=== PATIENT | female | born 1945 | race Caucasian/White ===

== ENCOUNTER 2021-07-07 20:23 | Inpatient (IN) ==
[2021-07-07 22:58] LABS: iSTAT Creatinine 6.3 mg/dl (0.6-1.3); iSTAT Hemoglobin 15.6 g/dl (12.0-16.0); iSTAT Ionized Calcium 1.03 mmol/l (1.12-1.32); iSTAT Potassium 4.3 mmol/L (3.3-5.0)
[2021-07-07 23:00] LABS: Base Excess VBG -3.4 mEq/L; Oxygen Saturation VBG 94.1 %; pH VBG 7.34 (7.36-7.41)
[2021-07-07 23:13] LABS: Partial Thromboplastin Ratio 1.1; Partial Thromboplastin Time 29.9 Seconds (21.0-31.0); Prothrombin Time 10.6 Seconds (9.0-12.0)
[2021-07-07 23:14] LABS: Appearance Urine Turbid (Clear); Bacteria Urine Automated 1+ (Negative); Bilirubin Urine Negative (Negative); Blood Urine 3+ (Negative); Cast Urine Automated 0 /lpf (0-5); Color Urine Dark Yellow; Epithelial Cell Urine Auto >30 /lpf (0-5); Glucose Urine UA Negative (Negative); Ketones Urine Negative (Negative); Leukocyte Esterase Urine 3+ (Negative); Nitrite Urine Negative (Negative); Protein Urine 1+ (Negative); Specific Gravity Urine 1.013 (1.000-1.030); Urobilinogen Urine Negative (Negative); WBC Urine Automated >30 /hpf (0-5)
[2021-07-07 23:35] LABS: Alanine Aminotransferase 33 U/L (12-78); Albumin Globulin Ratio 0.6 (0.9-2); Albumin Level 2.2 gm/dl (3.4-5.0); Alkaline Phosphatase 111 U/L (45-117); Aspartate Aminotransferase 37 U/L (15-37); BUN Creatinine Ratio 23.2 (10-20); Bilirubin,Total 0.9 mg/dl (0.2-1); Blood Urea Nitrogen 137 mg/dl (7-18); Calcium 7.9 mg/dl (8.5-10.1); Carbon Dioxide 23 mmol/L (21-32); Chloride 94 mmol/L (98-107); Est GFR (African American) 7.6 ml/min; Est GFR (Non-African American) 6.5 ml/min; Glucose 131 mg/dl (70-99); Magnesium 2.2 mg/dl (1.8-2.4); NT Pro B Type Natriuretic Pept 2887 pg/ml (0-900); Potassium 4.2 mmol/L (3.5-5.1); Sodium 130 mmol/L (136-145); Total Protein 6.2 gm/dl (6.4-8.2); Troponin I 0.159 ng/ml (0-0.045)
[2021-07-07 23:37] LABS: Hematocrit (blood only) 43.4 % (37-47); Hemoglobin 15.8 g/dL (12.0-16.0); Mean Corpuscular Hemoglobin 29.3 pg (25-34); Mean Corpuscular Hgb Conc 36.4 g/dL (32-36); Mean Corpuscular Volume 80.4 fL (80-100); Mean Platelet Volume 11.1 fL (7.4-10.4); Platelet Count 42 K/uL (130-400); RDW Coefficient of Variation 15.6 % (11.5-14.5); RDW Standard Deviation 45.4 fL (36.4-46.3); White Blood Count 33.48 K/uL (4.8-10.8)
[2021-07-07 23:44] LABS: ALC (manual) 1.17 K/uL (1.2-3.4); ANC (manual) 31.44 K/uL (1.4-6.5); Lymphocytes # (manual) 1.17 K/uL (1.2-3.4); Lymphocytes % (manual) 3.5 %; Monocytes # (manual) 0.87 K/uL (0.11-0.59); Monocytes % (manual) 2.6 %; Neutrophils # (manual) 31.44 K/uL (1.4-6.5); Neutrophils % (manual) 93.9 %; RBC Morphology Unremarkable
[2021-07-07] MEDS ORDERED: CIPROFLOXACIN / D5W 400 MG/200 ML BAG IV STA (23:57)
--- NOTE | 2021-07-07 23:57 | Emergency Department Note ---
History of Present Illness General Chief complaint: Illness Stated complaint: weakness, low oxygen Time Seen by Provider: 07/07/21 22:01 History of Present Illness Provider complaint: Weakness low oxygen 75-year-old female presents emergency department for weakness. Patient states she is not sure when her symptoms began but states this began many weeks to months ago. She reports a mild difficulty breathing. She reports increased swelling in her lower extremities. Patient reports that she is so weak that she cannot get up to use the restroom. She denies any chest pain. She denies any headaches. She denies being vaccinated for COVID-19. She denies any cough or loss of taste or smell. Home Medications Medication Instructions Recorded Confirmed Type atorvastatin 20 mg tablet (Lipitor) 20 mg PO DAILY 07/07/21 07/07/21 History chlorpheniramine-acetaminophen 2 1 tab PO Q6H PRN 07/07/21 07/07/21 History mg-325 mg tablet lisinopril 10 mg tablet (Zestril) 10 mg PO DAILY 07/07/21 07/07/21 History oxybutynin chloride 5 mg 5 mg PO DAILY 07/07/21 07/07/21 History tablet,extended release 24 hr (Ditropan XL) Allergies Allergy/AdvReac Type Severity Reaction Status Date / Time ampicillin Allergy Unknown . Verified 07/07/21 21:43 erythromycin base Allergy Unknown . Verified 07/07/21 21:43 tetracycline Allergy Unknown . Verified 07/07/21 21:43 TERRAMYCIN Allergy Unknown . Uncoded 07/07/21 21:43 Past Med/Surg History Medical History (Updated 07/08/21 @ 00:55 by Braulio Arroyoha) Stress incontinence Surgical History (Updated 07/08/21 @ 00:02 by Braulio Loaiza) H/O hysterectomy with oophorectomy History of appendectomy Social History Smoking Status: Smoker, status unknown Feels Safe at Home: Yes Review of Systems A total of 10 systems reviewed and were otherwise negative Physical Exam Vital Signs Vital Signs - 24 hr 07/07/21 20:58 07/07/21 21:08 07/08/21 00:18 Temperature 36.7 C Temperature Source Oral Pulse Rate 91 H Pulse Rate [Apical] 90 91 H Respiratory Rate 16 19 20 Respiratory Effort / Characteristics Non-Labored Spontaneous Respiratory Depth Normal Respiratory Pattern Regular Blood Pressure 108/71 Blood Pressure [Left Arm] 108/71 98/62 L Blood Pressure Mean 83 Blood Pressure Mean [Left Arm] 83 74 Blood Pressure Position [Left Arm] Lying Pulse Oximetry 94 95 92 Oxygen Delivery Method Nasal Cannula Nasal Cannula Room Air Oxygen Flow Rate 2 2 Sepsis Recent Fever Within 48 Hours No Sepsis New/Unexplained Change in Mental Status No Sepsis Action Taken by Nursing No Action Required Physical Exam GENERAL: Disheveled chronically ill-appearing female. Patient is covered in her own feces and smells of urine HENT: Exam performed. -Head: Normocephalic and atraumatic. -Right Ear: External ear normal. No mastoid tenderness. -Left Ear: External ear normal. No mastoid tenderness. -Mouth/Throat: The oropharynx is clear and moist. No trismus in the jaw. No dental abscesses or uvula swelling. No oropharyngeal exudate or tonsillar abscesses. EYES: Conjunctivae and EOM are normal. Pupils are equal, round, and reactive to light. Right eye exhibits no discharge. Left eye exhibits no discharge. No scleral icterus. NECK: Normal range of motion. Neck supple. No JVD present. No spinous process tenderness present. No carotid bruit present. No rigidity. No tracheal deviation and normal range of motion present. No Brudzinski's sign and no Kernig's sign noted. CV: Normal rate, regular rhythm, normal heart sounds and intact distal pulses. Palpable radial pulses bue. PULM/CHEST: Rales at the bases bilaterally. ABD: The abdomen is soft and obese. Bowel sounds are normal. MUSC/SKEL: 4+ pitting edema of the bilateral lower extremities. LYMPH: No cervical adenopathy. NEURO: Motor and sensation grossly intact. PSYCH: She has a normal mood and affect. Behavior is normal. Judgment and thought content normal. Course Course 2200: The patient was evaluated in room C4. A complete history and physical exam was performed Cardiac monitoring: An order was placed for continuous cardiac monitoring. The monitor shows a rate of 90 with sinus rhythm Patient was hypoxic on arrival. Oxygen saturation is improved with supplemental oxygen via nasal cannula. 0034:Patient's creatinine 5.87. [id number]. Labs show leukocytosis of 33.48. proBNP elevated at 2887. Troponin elevated 0.159. Patient reports no chest pa in or difficulty breathing at this time. Procalcitonin greater than 200. Lactic acid within normal limits. Urinalysis appears to be infected. Patient treated with Cipro IV piggyback. 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 I did contact nephrology Dr. Alegria who agrees to be on consult and states there is no need for emergent dialysis at this time. She states she does not recommend any diuretics at this time either. 0040: Discussed with urology Dr. Ott who states no need for emergent intervention at this time. 0050: Patient in no acute distress. Patient asking for p.o. and watching TV in no acute distress. Discussed with Dr. Queen [facility] hospitalist team who agreed to admit the patient. Administered Medications Ciprofloxacin (Cipro / D5w) 400 mg in 200 mls @ 100 mls/hr IV NOW STA; Protocol Stop: 07/08/21 01:56 Last Admin: 07/08/21 00:18 Dose: 100 mls/hr Documented by: [id number] Critical Care Time Critical Care Time: Yes Total Critical Care Time: 76 I have personally spent greater than 76 minutes of critical care time in the direct management of this patient. This includes bedside care, interpretation of diagnostic studies, and testing, discussion with consultants, patient, and family members, and other required patient management activities. This 76 minutes is in excess of all separately billable procedures. Medical Decision Making Laboratory Data Result diagrams: 07/07/21 21:12 07/07/21 22:38 Lab Results 07/07/21 07/07/21 07/07/21 Range/Units 21:12 21:12 21:12 WBC 33.48 H* (4.8-10.8) K/uL RBC 5.40 (4.2-5.4) M/uL Hgb 15.8 (12.0-16.0) g/dL POC Hgb (12.0-16.0) g/dl Hct 43.4 (37-47) % POC Hct (37-47) % MCV 80.4 (80-100) fL MCH 29.3 (25-34) pg MCHC 36.4 H (32-36) g/dL RDW Std Deviation 45.4 (36.4-46.3) fL RDW Coeff of Mary Kay 15.6 H (11.5-14.5) % Plt Count 42 L (130-400) K/uL MPV 11.1 H (7.4-10.4) fL Neutrophils % (Manual) 93.9 % Lymphocytes % (Manual) 3.5 % Monocytes % (Manual) 2.6 % Neutrophils # (Manual) 31.44 H (1.4-6.5) K/uL Total Absolute Neuts 31.44 H (1.4-6.5) K/uL Lymphocytes # (Manual) 1.17 L (1.2-3.4) K/uL Total Abs Lymphocytes 1.17 L (1.2-3.4) K/uL Monocytes # (Manual) 0.87 H (0.11-0.59) K/uL RBC Morphology Unremarkable PT (9.0-12.0) Seconds INR (0.9-1.1) APTT (21.0-31.0) Seconds PTT Ratio VBG pH (7.36-7.41) VBG pCO2 (38-50) mmHg VBG pO2 mmHg VBG HCO3 mmol/L VBG O2 Saturation % VBG Base Excess mEq/L Barometric Pressure mm/Hg POC Sodium (135-144) mmol/L Sodium (136-145) mmol/L POC Potassium (3.3-5.0) mmol/L Potassium (3.5-5.1) mmol/L POC Chloride (101-112) mmol/L Chloride (98-107) mmol/L Carbon Dioxide (21-32) mmol/L POC Total CO2 (24-31) mmol/L Anion Gap (3-11) POC Anion Gap (16-25) mmol/L POC BUN (7-18) mg/dl BUN (7-18) mg/dl Creatinine (0.6-1.2) mg/dl POC Creatinine (0.6-1.3) mg/dl Est Cr Clr Drug Dosing Est GFR ( Amer) ml/min Est GFR (Non-Af Amer) ml/min BUN/Creatinine Ratio (10-20) Glucose (70-99) mg/dl POC Glucose (other) (70-99) mg/dl Lactate (0.4-2.0) mmol/L Calcium (8.5-10.1) mg/dl POC Ioniz Calcium Jenniffer (1.12-1.32) mmol/l Magnesium (1.8-2.4) mg/dl Total Bilirubin (0.2-1) mg/dl AST (15-37) U/L ALT (12-78) U/L Alkaline Phosphatase (45-117) U/L Lactate Dehydrogenase 265 H (84-246) U/L Troponin I (0-0.045) ng/ml NT-Pro-B Natriuret Pep (0-900) pg/ml Total Protein (6.4-8.2) gm/dl Albumin (3.4-5.0) gm/dl Globulin (2.5-4.0) gm/dl Albumin/Globulin Ratio (0.9-2) Procalcitonin > 200.00 H (0-0.5) ng/ml Urine Color Urine Appearance (Clear) Urine pH (4.5-7.5) Ur Specific Eagle (1.000-1.030) Urine Protein (Negative) Urine Glucose (UA) (Negative) Urine Ketones (Negative) Urine Blood (Negative) Urine Nitrite (Negative) Urine Bilirubin (Negative) Urine Urobilinogen (Negative) Ur Leukocyte Esterase (Negative) Urine WBC (Auto) (0-5) /hpf Urine RBC (Auto) (0-4) /hpf U Hyaline Cast (Auto) (0-5) /lpf U Epithel Cells (Auto) (0-5) /lpf Urine Bacteria (Auto) (Negative) Urine Yeast COVID-19 Eval Order 07/07/21 07/07/21 07/07/21 Range/Units 21:12 22:38 22:38 WBC (4.8-10.8) K/uL RBC (4.2-5.4) M/uL Hgb (12.0-16.0) g/dL POC Hgb (12.0-16.0) g/dl Hct (37-47) % POC Hct (37-47) % MCV (80-100) fL MCH (25-34) pg MCHC (32-36) g/dL RDW Std Deviation (36.4-46.3) fL RDW Coeff of Mary Kay (11.5-14.5) % Plt Count (130-400) K/uL MPV (7.4-10.4) fL Neutrophils % (Manual) % Lymphocytes % (Manual) % Monocytes % (Manual) % Neutrophils # (Manual) (1.4-6.5) K/uL Total Absolute Neuts (1.4-6.5) K/uL Lymphocytes # (Manual) (1.2-3.4) K/uL Total Abs Lymphocytes (1.2-3.4) K/uL Monocytes # (Manual) (0.11-0.59) K/uL RBC Morphology PT 10.6 (9.0-12.0) Seconds INR 1.0 (0.9-1.1) APTT 29.9 (21.0-31.0) Seconds PTT Ratio 1.1 VBG pH 7.34 L (7.36-7.41) VBG pCO2 42 (38-50) mmHg VBG pO2 68 mmHg VBG HCO3 22 mmol/L VBG O2 Saturation 94.1 % VBG Base Excess -3.4 mEq/L Barometric Pressure 734.0 mm/Hg POC Sodium (135-144) mmol/L Sodium 130 L (136-145) mmol/L POC Potassium (3.3-5.0) mmol/L Potassium 4.2 (3.5-5.1) mmol/L POC Chloride (101-112) mmol/L Chloride 94 L (98-107) mmol/L Carbon Dioxide 23 (21-32) mmol/L POC Total CO2 (24-31) mmol/L Anion Gap 13.0 H (3-11) POC Anion Gap (16-25) mmol/L POC BUN (7-18) mg/dl BUN 137 H (7-18) mg/dl Creatinine 5.87 H* (0.6-1.2) mg/dl POC Creatinine (0.6-1.3) mg/dl Est Cr Clr Drug Dosing Not Reportable Est GFR ( Amer) 7.6 ml/min Est GFR (Non-Af Amer) 6.5 ml/min BUN/Creatinine Ratio 23.2 H (10-20) Glucose 131 H (70-99) mg/dl POC Glucose (other) (70-99) mg/dl Lactate (0.4-2.0) mmol/L Calcium 7.9 L (8.5-10.1) mg/dl POC Ioniz Calcium Jenniffer (1.12-1.32) mmol/l Magnesium 2.2 (1.8-2.4) mg/dl Total Bilirubin 0.9 (0.2-1) mg/dl AST 37 (15-37) U/L ALT 33 (12-78) U/L Alkaline Phosphatase 111 (45-117) U/L Lactate Dehydrogenase (84-246) U/L Troponin I 0.159 H* (0-0.045) ng/ml NT-Pro-B Natriuret Pep 2887 H (0-900) pg/ml Total Protein 6.2 L (6.4-8.2) gm/dl Albumin 2.2 L (3.4-5.0) gm/dl Globulin 4.0 (2.5-4.0) gm/dl Albumin/Globulin Ratio 0.6 L (0.9-2) Procalcitonin (0-0.5) ng/ml Urine Color Urine Appearance (Clear) Urine pH (4.5-7.5) Ur Specific Eagle (1.000-1.030) Urine Protein (Negative) Urine Glucose (UA) (Negative) Urine Ketones (Negative) Urine Blood (Negative) Urine Nitrite (Negative) Urine Bilirubin (Negative) Urine Urobilinogen (Negative) Ur Leukocyte Esterase (Negative) Urine WBC (Auto) (0-5) /hpf Urine RBC (Auto) (0-4) /hpf U Hyaline Cast (Auto) (0-5) /lpf U Epithel Cells (Auto) (0-5) /lpf Urine Bacteria (Auto) (Negative) Urine Yeast COVID-19 Eval Order 07/07/21 07/07/21 07/07/21 Range/Units 22:38 22:44 Unknown WBC (4.8-10.8) K/uL RBC (4.2-5.4) M/uL Hgb (12.0-16.0) g/dL POC Hgb 15.6 (12.0-16.0) g/dl Hct (37-47) % POC Hct 46 (37-47) % MCV (80-100) fL MCH (25-34) pg MCHC (32-36) g/dL RDW Std Deviation (36.4-46.3) fL RDW Coeff of Mary Kay (11.5-14.5) % Plt Count (130-400) K/uL MPV (7.4-10.4) fL Neutrophils % (Manual) % Lymphocytes % (Manual) % Monocytes % (Manual) % Neutrophils # (Manual) (1.4-6.5) K/uL Total Absolute Neuts (1.4-6.5) K/uL Lymphocytes # (Manual) (1.2-3.4) K/uL Total Abs Lymphocytes (1.2-3.4) K/uL Monocytes # (Manual) (0.11-0.59) K/uL RBC Morphology PT (9.0-12.0) Seconds INR (0.9-1.1) APTT (21.0-31.0) Seconds PTT Ratio VBG pH (7.36-7.41) VBG pCO2 (38-50) mmHg VBG pO2 mmHg VBG HCO3 mmol/L VBG O2 Saturation % VBG Base Excess mEq/L Barometric Pressure mm/Hg POC Sodium 130 L (135-144) mmol/L Sodium (136-145) mmol/L POC Potassium 4.3 (3.3-5.0) mmol/L Potassium (3.5-5.1) mmol/L POC Chloride 95 L (101-112) mmol/L Chloride (98-107) mmol/L Carbon Dioxide (21-32) mmol/L POC Total CO2 23 L (24-31) mmol/L Anion Gap (3-11) POC Anion Gap 17.0 (16-25) mmol/L POC BUN 126 H* (7-18) mg/dl BUN (7-18) mg/dl Creatinine (0.6-1.2) mg/dl POC Creatinine 6.3 H* (0.6-1.3) mg/dl Est Cr Clr Drug Dosing Est GFR ( Amer) ml/min Est GFR (Non-Af Amer) ml/min BUN/Creatinine Ratio (10-20) Glucose (70-99) mg/dl POC Glucose (other) 130 H (70-99) mg/dl Lactate 0.6 (0.4-2.0) mmol/L Calcium (8.5-10.1) mg/dl POC Ioniz Calcium Jenniffer 1.03 L (1.12-1.32) mmol/l Magnesium (1.8-2.4) mg/dl Total Bilirubin (0.2-1) mg/dl AST (15-37) U/L ALT (12-78) U/L Alkaline Phosphatase (45-117) U/L Lactate Dehydrogenase (84-246) U/L Troponin I (0-0.045) ng/ml NT-Pro-B Natriuret Pep (0-900) pg/ml Total Protein (6.4-8.2) gm/dl Albumin (3.4-5.0) gm/dl Globulin (2.5-4.0) gm/dl Albumin/Globulin Ratio (0.9-2) Procalcitonin (0-0.5) ng/ml Urine Color Dark Yellow Urine Appearance Turbid A (Clear) Urine pH 5.0 (4.5-7.5) Ur Specific Eagle 1.013 (1.000-1.030) Urine Protein 1+ H (Negative) Urine Glucose (UA) Negative (Negative) Urine Ketones Negative (Negative) Urine Blood 3+ H (Negative) Urine Nitrite Negative (Negative) Urine Bilirubin Negative (Negative) Urine Urobilinogen Negative (Negative) Ur Leukocyte Esterase 3+ H (Negative) Urine WBC (Auto) >30 H (0-5) /hpf Urine RBC (Auto) 5-10 H (0-4) /hpf U Hyaline Cast (Auto) 0 (0-5) /lpf U Epithel Cells (Auto) >30 H (0-5) /lpf Urine Bacteria (Auto) 1+ H (Negative) Urine Yeast Not Reportable COVID-19 Eval Order 07/08/21 Range/Units 00:25 WBC (4.8-10.8) K/uL RBC (4.2-5.4) M/uL Hgb (12.0-16.0) g/dL POC Hgb (12.0-16.0) g/dl Hct (37-47) % POC Hct (37-47) % MCV (80-100) fL MCH (25-34) pg MCHC (32-36) g/dL RDW Std Deviation (36.4-46.3) fL RDW Coeff of Mary Kay (11.5-14.5) % Plt Count (130-400) K/uL MPV (7.4-10.4) fL Neutrophils % (Manual) % Lymphocytes % (Manual) % Monocytes % (Manual) % Neutrophils # (Manual) (1.4-6.5) K/uL Total Absolute Neuts (1.4-6.5) K/uL Lymphocytes # (Manual) (1.2-3.4) K/uL Total Abs Lymphocytes (1.2-3.4) K/uL Monocytes # (Manual) (0.11-0.59) K/uL RBC Morphology PT (9.0-12.0) Seconds INR (0.9-1.1) APTT (21.0-31.0) Seconds PTT Ratio VBG pH (7.36-7.41) VBG pCO2 (38-50) mmHg VBG pO2 mmHg VBG HCO3 mmol/L VBG O2 Saturation % VBG Base Excess mEq/L Barometric Pressure mm/Hg POC Sodium (135-144) mmol/L Sodium (136-145) mmol/L POC Potassium (3.3-5.0) mmol/L Potassium (3.5-5.1) mmol/L POC Chloride (101-112) mmol/L Chloride (98-107) mmol/L Carbon Dioxide (21-32) mmol/L POC Total CO2 (24-31) mmol/L Anion Gap (3-11) POC Anion Gap (16-25) mmol/L POC BUN (7-18) mg/dl BUN (7-18) mg/dl Creatinine (0.6-1.2) mg/dl POC Creatinine (0.6-1.3) mg/dl Est Cr Clr Drug Dosing Est GFR ( Amer) ml/min Est GFR (Non-Af Amer) ml/min BUN/Creatinine Ratio (10-20) Glucose (70-99) mg/dl POC Glucose (other) (70-99) mg/dl Lactate (0.4-2.0) mmol/L Calcium (8.5-10.1) mg/dl POC Ioniz Calcium Jenniffer (1.12-1.32) mmol/l Magnesium (1.8-2.4) mg/dl Total Bilirubin (0.2-1) mg/dl AST (15-37) U/L ALT (12-78) U/L Alkaline Phosphatase (45-117) U/L Lactate Dehydrogenase (84-246) U/L Troponin I (0-0.045) ng/ml NT-Pro-B Natriuret Pep (0-900) pg/ml Total Protein (6.4-8.2) gm/dl Albumin (3.4-5.0) gm/dl Globulin (2.5-4.0) gm/dl Albumin/Globulin Ratio (0.9-2) Procalcitonin (0-0.5) ng/ml Urine Color Urine Appearance (Clear) Urine pH (4.5-7.5) Ur Specific Eagle (1.000-1.030) Urine Protein (Negative) Urine Glucose (UA) (Negative) Urine Ketones (Negative) Urine Blood (Negative) Urine Nitrite (Negative) Urine Bilirubin (Negative) Urine Urobilinogen (Negative) Ur Leukocyte Esterase (Negative) Urine WBC (Auto) (0-5) /hpf Urine RBC (Auto) (0-4) /hpf U Hyaline Cast (Auto) (0-5) /lpf U Epithel Cells (Auto) (0-5) /lpf Urine Bacteria (Auto) (Negative) Urine Yeast COVID-19 Eval Order Covid19 at [facility] Imaging Data My Impression: Chest x-ray: Cardiomegaly with cephalization. Radiologist's Impression: Preliminary Findings Only See Final Report For Complete Findings CT HEAD: Infarct within the right occipital lobe which appears subacute. Correlate clinically. No hemorrhage or mass-effect. Chronic lacunar infarct within the right caudate. Mucosal thickening within the right maxillary sinus. Radiologist: Edgardo Garibay MD Study ready at 00:21 and initial results transmitted at 00:29 Communications: Clear Time Type Notes 07/08/21 00:31 Call Doctor Regarding Stroke, called Dr. Cohen on 07/08 00:31 (- 04:00) Preliminary Findings Only See Final Report For Complete Findings CT ABDOMEN & PELVIS Without Contrast: There is a 6 mm stone within the proximal right ureter with mild upstream hydronephrosis. Few additional stones within the right renal pelvis and nonobstructing stones in the left kidney. Bladder is decompressed with a Gomez. Atelectasis at the lung bases. 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 Severe atherosclerotic calcifications. Radiologist: Edgardo Garibay MD Study ready at 00:27 and initial results transmitted at 00:35 ECG Data Indication: + SOB/dyspnea Rate (beats per minute): 95 Rhythm: + normal sinus ECG Intervals/blocks: + Normal QRS, + Normal OR and + Normal QT-c ECG ST segments: + Normal ST segments [facility] Narrative 2201: The patient was evaluated in room C4. A complete history and physical exam was performed Cardiac monitoring: An order was placed for continuous cardiac monitoring. The monitor shows a rate of 90 with sinus rhythm Patient was hypoxic on arrival. Oxygen saturation is improved with supplemental oxygen via nasal cannula. 0034:Patient's creatinine 5.87. [id number]. Labs show leukocytosis of 33.48. proBNP elevated at 2887. Troponin elevated 0.159. Patient reports no chest pain or difficulty breathing at this time. Procalcitonin greater than 200. Lactic acid within normal limits. Urinalysis appears to be infected. Patient treated with Cipro IV piggyback. 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 I did contact nephrology Dr. Alegria who agrees to be on consult and states there is no need for emergent dialysis at this time. She states she does not recommend any diuretics at this time either. 0040: Discussed with urology Dr. Ott who states no need for emergent intervention at this time. 0050: Patient in no acute distress. Patient asking for p.o. and watching TV in no acute distress. [facility] who agreed to admit the patient. Impression & Plan Hypoxia, MOHINI (acute kidney injury), CHF (congestive heart failure), Hydronephrosis with renal and ureteral calculus obstruction Discharge Plan Visit Data Chief Complaint: Illness Stated Complaint: weakness, low oxygen ED Provider: Braulio Loaiza Discharge Problem: Hypoxia, MOHINI (acute kidney injury), CHF (congestive heart failure), Hydronephrosis with renal and ureteral calculus obstruction Patient Disposition: Admitted As Inpatient Forms Stand Alone Forms: [facility] Prescriptions Prescriptions: No Action atorvastatin [Lipitor] 20 mg tablet 20 mg PO DAILY RF: 0 lisinopril [Zestril] 10 mg tablet 10 mg PO DAILY RF: 0 oxybutynin chloride [Ditropan XL] 5 mg tablet extended release 24hr 5 mg PO DAILY RF: 0 Coricidin 2-325 mg Tablet 1 tab PO Q6H PRN (Reason: Congestion) RF: 0 Referrals Referrals: Manuel St [Primary Care Provider] -
[2021-07-08] MEDS ORDERED: CEFEPIME 2,000 MG/20 ML VIAL IV STA (01:14)
[2021-07-08] MEDS ORDERED: CALCIUM GLUCONATE 1,000 MG/60 ML BAG IV STA (01:24)
[2021-07-08] MEDS ORDERED: TAMSULOSIN HCL 0.4 MG CAP PO STA (01:24)
[2021-07-08 01:39] LABS: Creatine Kinase 230 U/L (26-192)
[2021-07-08] MEDS ORDERED: ASPIRIN 81 MG ECTAB PO STA (01:48)
[2021-07-08] MEDS ORDERED: CLOPIDOGREL BISULFATE 300 MG TAB PO STA (01:48)
--- NOTE | 2021-07-08 02:03 | History & Physical Report ---
Date of Service July 08, 2021 Assessment & Plan (1) Severe sepsis: Plan: SIRS plus ARF (unknown baseline) Secondary to complicated UTI/obstructive uropathy Cardiorenal syndrome Leg swelling secondary to fluid retention rule out DVT Subacute CVA on CAT scan initial read ? Possible aspirin failure hypertension, BP on the lower side hyperlipidemia on statin Rx Hyperglycemia rule out DM Thrombocytopenia ? Unknown duration Possible functional disability Past tobacco abuse PCU CS, Cefepime Flomax, strain urine Urology consult Re: Obstructive uropathy (ER provider already in touch with Dr. Ott.) N.p.o. until patient seen by urology in anticipation of procedure. Nephrology consult Re: ARF with fluid retention possible cardiorenal syndrome (ER provider already in touch with Dr. Denise.) Hold home MARISOL inhibitor for now LE venous Dopplers no DVT Neurochecks Add Plavix to home aspirin for possible aspirin failure, continue statin MRI/MRA brain, TTE, carotid Dopplers, lipid profile for additional stroke work- up Neurology consult Re: Subacute CVA Check hemoglobin A1c Obtain recent outpatient PCP records/lab work ([facility]) PT OT eval DVT prophylaxis. SCDs Re: Thrombocytopenia DNR Patient requests for her daughter to be updated of progress/plan of care. Ms. Zuri Flor, contact #[phone]. Text document was generated using [email or web address] voice recognition software. It may contain grammatical or spelling errors. Kindly contact undersigned for clarification of any documentation item in question. History of Present Illness Chief Complaint: Right leg weakness, leg swelling Primary Care Provider: Manuel St History obtained from patient and records. Patient is a fair historian. Medical history significant for hypertension, hyperlipidemia, stress incontinence as per records, past tobacco abuse. Patient noted leg swelling and fluid retention in the last few weeks. Yesterday, patient noted right leg weakness more than usual. Trouble walking as per patient. Denies headache/visual symptoms. Patient denies unusual chest pain, S OB symptoms. Usual cough symptoms. Denies abdominal pain or flank pain or hematuria symptoms. No issues with peeing as per patient. Denies OTC NSAID intake. Patient brought to the ER for evaluation. Ciprofloxacin given for UTI. Medical History as above Surgical History : Eye surgeries, appendectomy, MICHAEL Family History : Bladder cancer, glaucoma Personal/Social history : Past tobacco abuse, no EtOH intake, retired from factory work Allergies Allergy/AdvReac Type Severity Reaction Status Date / Time ampicillin Allergy Unknown . Verified 07/07/21 21:43 erythromycin base Allergy Unknown . Verified 07/07/21 21:43 tetracycline Allergy Unknown . Verified 07/07/21 21:43 Home Medications Medication Instructions Recorded Confirmed Type atorvastatin 20 mg tablet (Lipitor) 20 mg PO DAILY 07/07/21 07/07/21 History chlorpheniramine-acetaminophen 2 1 tab PO Q6H PRN 07/07/21 07/07/21 History mg-325 mg tablet lisinopril 10 mg tablet (Zestril) 10 mg PO DAILY 07/07/21 07/07/21 History oxybutynin chloride 5 mg 5 mg PO DAILY 07/07/21 07/07/21 History tablet,extended release 24 hr (Ditropan XL) Aspir-81 81 mg PO DAILY 07/08/21 07/08/21 History Past Med/Surg History Medical History (Updated 07/08/21 @ 10:32 by Chris Allison MD) MOHINI (acute kidney injury) CHF (congestive heart failure) Morbid obesity Smoker Stress incontinence Surgical History H/O hysterectomy with oophorectomy History of appendectomy Social History Smoking Status: Current every day smoker Second Hand Exposure: No; Do You Dip or Chew Tobacco: No; Tobacco Cessation Education Requested by Patient: No Hx Alcohol Use: No Hx Substance Use: No Communication Ability: Effective Sausage Smoker Required: No Beliefs That Will Affect Care: None Current Living Situation: Alone Other Information That Helps Us Care for You: No Feels Safe at Home: Yes Safety Concerns: Feels Safe At This Time Assistive Devices: Glasses and Oxygen - Continuous Review of Systems Review of Systems: As per HPI, all 10 systems reviewed, all other ROS negative Physical Exam Physical Exam: GENERAL: Comfortable, morbidly obese, mild hearing impairment, no respiratory distress SKIN: Normal color, warm HEENT: [place] palpebral conjunctivae, no ptosis, dry buccal mucosa, nasal cannula in place NECK : Supple, short neck, no tenderness CHEST : Decreased breath sounds, no tenderness HEART : RRR, systolic murmur ABDOMEN: Some distention, nontender EXTREMITIES : Bilateral LE swelling, no LE tenderness, thickened LE skin NEUROLOGIC : Coherent, no facial asymmetry, mild hearing impairment, MMTS BUE/BLE 4/5, gait and stance not assessed Results & Data Results & Data ([facility]) Vital Signs (Past 12 Hours) Vital Signs Temp Pulse Pulse Resp BP BP Pulse Ox 07/08/21 00:18 91 H 20 98/62 L 92 07/07/21 21:08 90 19 108/71 95 07/07/21 20:58 36.7 C 91 H 16 108/71 94 Laboratory Results Laboratory Results WBC 33.48 K/uL (4.8-10.8) H* 07/07/21 21:12 RBC 5.40 M/uL (4.2-5.4) 07/07/21 21:12 Hgb 15.8 g/dL (12.0-16.0) 07/07/21 21:12 POC Hgb 15.6 g/dl (12.0-16.0) 07/07/21 22:44 Hct 43.4 % (37-47) 07/07/21 21:12 POC Hct 46 % (37-47) 07/07/21 22:44 MCV 80.4 fL (80-100) 07/07/21 21:12 MCH 29.3 pg (25-34) 07/07/21 21:12 MCHC 36.4 g/dL (32-36) H 07/07/21 21:12 RDW Std Deviation 45.4 fL (36.4-46.3) 07/07/21 21:12 RDW Coeff of Mary Kay 15.6 % (11.5-14.5) H 07/07/21 21:12 Plt Count 42 K/uL (130-400) L 07/07/21 21:12 MPV 11.1 fL (7.4-10.4) H 07/07/21 21:12 Neutrophils % (Manual) 93.9 % 07/07/21 21:12 Lymphocytes % (Manual) 3.5 % 07/07/21 21:12 Monocytes % (Manual) 2.6 % 07/07/21 21:12 Neutrophils # (Manual) 31.44 K/uL (1.4-6.5) H 07/07/21 21:12 Total Absolute Neuts 31.44 K/uL (1.4-6.5) H 07/07/21 21:12 Lymphocytes # (Manual) 1.17 K/uL (1.2-3.4) L 07/07/21 21:12 Total Abs Lymphocytes 1.17 K/uL (1.2-3.4) L 07/07/21 21:12 Monocytes # (Manual) 0.87 K/uL (0.11-0.59) H 07/07/21 21:12 RBC Morphology Unremarkable 07/07/21 21:12 PT 10.6 Seconds (9.0-12.0) 07/07/21 21:12 INR 1.0 (0.9-1.1) 07/07/21 21:12 APTT 29.9 Seconds (21.0-31.0) 07/07/21 21:12 PTT Ratio 1.1 07/07/21 21:12 VBG pH 7.34 (7.36-7.41) L 07/07/21 22:38 VBG pCO2 42 mmHg (38-50) 07/07/21 22:38 VBG pO2 68 mmHg 07/07/21 22:38 VBG HCO3 22 mmol/L 07/07/21 22:38 VBG O2 Saturation 94.1 % 07/07/21 22:38 VBG Base Excess -3.4 mEq/L 07/07/21 22:38 Barometric Pressure 734.0 mm/Hg 07/07/21 22:38 POC Sodium 130 mmol/L (135-144) L 07/07/21 22:44 Sodium 130 mmol/L (136-145) L 07/07/21 22:38 POC Potassium 4.3 mmol/L (3.3-5.0) 07/07/21 22:44 Potassium 4.2 mmol/L (3.5-5.1) 07/07/21 22:38 POC Chloride 95 mmol/L (101-112) L 07/07/21 22:44 Chloride 94 mmol/L (98-107) L 07/07/21 22:38 Carbon Dioxide 23 mmol/L (21-32) 07/07/21 22:38 POC Total CO2 23 mmol/L (24-31) L 07/07/21 22:44 Anion Gap 13.0 (3-11) H 07/07/21 22:38 POC Anion Gap 17.0 mmol/L (16-25) 07/07/21 22:44 POC BUN 126 mg/dl (7-18) H* 07/07/21 22:44 BUN 137 mg/dl (7-18) H 07/07/21 22:38 Creatinine 5.87 mg/dl (0.6-1.2) H* 07/07/21 22:38 POC Creatinine 6.3 mg/dl (0.6-1.3) H* 07/07/21 22:44 Est Cr Clr Drug Dosing Not Reportable 07/07/21 22:38 Est GFR ( Amer) 7.6 ml/min 07/07/21 22:38 Est GFR (Non-Af Amer) 6.5 ml/min 07/07/21 22:38 BUN/Creatinine Ratio 23.2 (10-20) H 07/07/21 22:38 Glucose 131 mg/dl (70-99) H 07/07/21 22:38 POC Glucose (other) 130 mg/dl (70-99) H 07/07/21 22:44 Osmolality 321 mOsm/kg (280-300) H 07/07/21 21:12 Lactate 0.6 mmol/L (0.4-2.0) 07/07/21 22:38 Calcium 7.9 mg/dl (8.5-10.1) L 07/07/21 22:38 POC Ioniz Calcium Jenniffer 1.03 mmol/l (1.12-1.32) L 07/07/21 22:44 Magnesium 2.2 mg/dl (1.8-2.4) 07/07/21 22:38 Total Bilirubin 0.9 mg/dl (0.2-1) 07/07/21 22:38 AST 37 U/L (15-37) 07/07/21 22:38 ALT 33 U/L (12-78) 07/07/21 22:38 Alkaline Phosphatase 111 U/L (45-117) 07/07/21 22:38 Lactate Dehydrogenase 265 U/L (84-246) H 07/07/21 21:12 Total Creatine Kinase 230 U/L (26-192) H 07/07/21 22:38 Troponin I 0.159 ng/ml (0-0.045) H* 07/07/21 22:38 NT-Pro-B Natriuret Pep 2887 pg/ml (0-900) H 07/07/21 22:38 Total Protein 6.2 gm/dl (6.4-8.2) L 07/07/21 22:38 Albumin 2.2 gm/dl (3.4-5.0) L 07/07/21 22:38 Globulin 4.0 gm/dl (2.5-4.0) 07/07/21 22:38 Albumin/Globulin Ratio 0.6 (0.9-2) L 07/07/21 22:38 Procalcitonin > 200.00 ng/ml (0-0.5) H 07/07/21 21:12 TSH 3.050 uIu/ml (0.300-4.500) 07/07/21 22:38 Urine Color Dark Yellow 07/07/21 Unknown Urine Appearance Turbid (Clear) A 07/07/21 Unknown Urine pH 5.0 (4.5-7.5) 07/07/21 Unknown Ur Specific [place] 1.013 (1.000-1.030) 07/07/21 Unknown Urine Protein 1+ (Negative) H 07/07/21 Unknown Urine Glucose (UA) Negative (Negative) 07/07/21 Unknown Urine Ketones Negative (Negative) 07/07/21 Unknown Urine Blood 3+ (Negative) H 07/07/21 Unknown Urine Nitrite Negative (Negative) 07/07/21 Unknown Urine Bilirubin Negative (Negative) 07/07/21 Unknown Urine Urobilinogen Negative (Negative) 07/07/21 Unknown Ur Leukocyte Esterase 3+ (Negative) H 07/07/21 Unknown Urine WBC (Auto) >30 /hpf (0-5) H 07/07/21 Unknown Urine RBC (Auto) 5-10 /hpf (0-4) H 07/07/21 Unknown U Hyaline Cast (Auto) 0 /lpf (0-5) 07/07/21 Unknown U Epithel Cells (Auto) >30 /lpf (0-5) H 07/07/21 Unknown Urine Bacteria (Auto) 1+ (Negative) H 07/07/21 Unknown Urine Yeast Not Reportable 07/07/21 Unknown COVID-19 Eval Order Covid19 at [facility] 07/08/21 00:25 SARS-CoV-2 (PCR) NEGATIVE (Negative) 07/08/21 00:[address] head initial read: Infarct within the right occipital lobe which appears subacute. Correlate clinically. No hemorrhage or mass-effect. Chronic lacunar infarct within the right caudate. Mucosal thickening within the right maxillarysinus. CT abdomen pelvis initial read: There is a 6 mmstone within the proximal right ureter with mild upstreamhydronep hrosis. Fewadditional stoneswithin the right renal pelvis and nonobstructing stones in the left kidney. Bladder is decompressed with a Gomez. Atelectasis at the lung bases. 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 Severe atherosclerotic calcifications. Chest x-ray as per my interpretation cardiomegaly, congestion EKG as per my interpretation : Rate 95, NSR, LAD, LAFB, septal infarct Code Status & VTE Plan VTE Prophylaxis Plan VTE Prophylaxis will be ordered: Yes
[2021-07-08] MEDS ORDERED: SODIUM CHLORIDE 0.9% 1000ML 500 ML IV ONE (02:12)
[2021-07-08] MEDS ORDERED: PHARMACIST DISCHARGE MED REC CONSULT PRN (03:35)
[2021-07-08] MEDS ORDERED: oxyCODONE HCL IR 5 MG TAB (IMMEDIATE RELEASE) PO PRN (03:35)
[2021-07-08] MEDS ORDERED: XOPENEX/ATROVENT 1.25mg/0.5MG NEB COMBO NEB PRN (03:35)
[2021-07-08] MEDS ORDERED: CEFEPIME CONSULT ACTIVE PRN (03:35)
[2021-07-08] MEDS ORDERED: IPRATROPIUM BROMIDE NEB SOLN 0.02% 2.5 ML VIAL INH PRN (03:35)
[2021-07-08] MEDS ORDERED: ACETAMINOPHEN 325 MG TAB PO PRN (03:35)
[2021-07-08] MEDS ORDERED: PROMETHAZINE HCL 12.5 MG in SODIUM CHLORIDE 0.9% 50 ML IV PRN (03:35)
[2021-07-08] MEDS ORDERED: LEVALBUTEROL 1.25MG/0.5ML NEB INH PRN (03:35)
[2021-07-08] MEDS: SODIUM CHLORIDE 0.9% 1000ML 1,000 ML IV SCH ×3 (03:49→19:43)
[2021-07-08] MEDS ORDERED: PATIENT'S HEIGHT AND/OR WEIGHT NEEDED STA (03:49)
[2021-07-08] MEDS: ALBUMIN 25% 12.5 GM/50 ML VIAL IV SCH ×2 (03:50→04:51)
--- NOTE | 2021-07-08 03:51 | Urology Consultation ---
Date of Consultation July 08, 2021 Assessment & Plan (1) Hydronephrosis with renal and ureteral calculus obstruction: Patient has been admitted on the medical service. Records have been requested from [facility] as patient has recently received care at this facility The emergency room physician did discuss with nephrology who did not feel urgent renal replacement therapy was needed. The treating emergency room physician also discussed with Dr. Ott of urology did not feel acute urologic intervention was needed at this time Serial labs have been ordered will be followed It appears as though the patient may have a urinary tract infection. She did receive Cipro in the emergency department and the admitting team has placed the patient on cefepime. Recommend continue antibiotics which can be tailored based on pending urine culture results Recommend hydration with IV fluids Patient is currently n.p.o. We will keep her n.p.o. until formal evaluated by urology attending in the morning to see if any cystoscopic intervention is required History of Present Illness Reason for Consultation: Nephrolithiasis Attending Physician: Carli Lambert MD History of Present Illness This is a 71-year-old female who presented to the emergency department secondary to some generalized weakness. Patient says that the symptoms have been ongoing for several weeks. She has noted some swelling of her lower extremities along with some numbness of her lower extremities. She says that because of her weakness she was having a great deal of difficulty ambulating. She denies any falls or head injuries. Because of the nonspecific nature of the patient's symptoms I question her litany symptoms and again she has not had any falls or head injuries. She denies any visual changes. She denies any tinnitus or vertigo. She denies any cough or shortness of breath. She denies any fevers, shakes, or chills. Patient denies any abdominal pain. She denies any back or flank pain. Patient denies any dysuria or hematuria. She denies the inability to move her arms or legs but does note some numbness of her legs and generalized weakness as stated above. Because of her symptoms she presented to the emergency department. Since arrival to the hospital the patient has had labs and imaging which I independently reviewed. CBC revealed white blood cell count was 33.4. Her hemoglobin and hematocrit were noted to be within normal range. Platelet count was low at 42,000. Coagulation studies were noted to be normal. Patient had a chemistry profile where her sodium was noted to be 130 and potassium was within the normal range. Her BUN and creatinine were elevated at 137 and 5.8 respectively. No previous labs were available for review. Patient was noted to have an elevated troponin at 0.159. Total creatinine kinase was 230 and her lactate dehydrogenase was 265. Urinalysis did show greater than 30 white blood cells per high-power field with 1+ bacteria and 3+ leukocyte esterase. Urine was negative for nitrites. A Covid test was performed and was noted to be negative. Lactic acid level was noted to be within normal range. Imaging included a CT scan of the abdomen and pelvis that showed a 6 mm stone in the proximal right ureter causing hydronephrosis. December nonobstructing left-sided k idney stones were noted. At the time my interview the patient is resting comfortably in bed. She was in no distress Allergies Allergy/AdvReac Type Severity Reaction Status Date / Time ampicillin Allergy Unknown . Verified 07/07/21 21:43 erythromycin base Allergy Unknown . Verified 07/07/21 21:43 tetracycline Allergy Unknown . Verified 07/07/21 21:43 Home Medications Medication Instructions Recorded Confirmed Type atorvastatin 20 mg tablet (Lipitor) 20 mg PO DAILY 07/07/21 07/07/21 History chlorpheniramine-acetaminophen 2 1 tab PO Q6H PRN 07/07/21 07/07/21 History mg-325 mg tablet lisinopril 10 mg tablet (Zestril) 10 mg PO DAILY 07/07/21 07/07/21 History oxybutynin chloride 5 mg 5 mg PO DAILY 07/07/21 07/07/21 History tablet,extended release 24 hr (Ditropan XL) Patient History Medical History Stress incontinence Surgical History H/O hysterectomy with oophorectomy History of appendectomy Social History Smoking Status: Current every day smoker Second Hand Exposure: No; Do You Dip or Chew Tobacco: No; Tobacco Cessation Education Requested by Patient: No Hx Alcohol Use: No Hx Substance Use: No Communication Ability: Effective [employer] System Required: No Beliefs That Will Affect Care: None Current Living Situation: Alone Other Information That Helps Us Care for You: No Feels Safe at Home: Yes Safety Concerns: Feels Safe At This Time Assistive Devices: Cane and Denture - Upper Review of Systems Constitutional: no fever and no chills Eyes: no diplopia Ear, Nose, Mouth, Throat: no ear pain Respiratory: no cough and no dyspnea Cardiovascular: no chest pain Gastrointestinal: no abdominal pain, no nausea and no vomiting Genitourinary: no dysuria and no flank pain Musculoskeletal: no back pain Integumentary: no rash Neurologic: + unsteadiness and + generalized weakness Physical Exam Constitutional: well developed, well nourished and + obese; no acute distress Eyes: no conjunctival abnormality ENMT: Ears: no hearing impairment and no external ear abnormality Neck: trachea midline Respiratory: normal respiratory effort; no respiratory distress and no labored breathing Cardiovascular: Rate/Rhythm: regular rate and regular rhythm Gastrointestinal (Abdomen): Abdomen is soft, nontender, and nondistended Musculoskeletal: No calf tenderness Skin: normal turgor Neurologic: moves all extremities Psychiatric: A+Ox3, euthymic affect Genitourinary: No CVA tenderness with percussion Results & Data ([facility]) Vital Signs (Past 12 Hours) Vital Signs Temp Pulse Pulse Resp BP BP Pulse Ox 07/08/21 02:06 90 22 89/58 L 93 07/08/21 00:18 91 H 20 98/62 L 92 07/07/21 21:08 90 19 108/71 95 07/07/21 20:58 36.7 C 91 H 16 108/71 94 PG Care Time/CCT Total # of Minutes Spent Total Time Spent with Patient: Total time spent is greater than 50% in coordination of care (as documented) at patient's floor/unit and/or counseling patient: Coding Level of Care Code 26563 Inpt Consult Level 5 Diagnoses Hydronephrosis with renal and ureteral calculus obstruction N13.2
[2021-07-08 05:18] LABS: Hematocrit (blood only) 40.2 % (37-47); Hemoglobin 14.1 g/dL (12.0-16.0); Mean Corpuscular Hemoglobin 28.6 pg (25-34); Mean Corpuscular Hgb Conc 35.1 g/dL (32-36); Mean Corpuscular Volume 81.5 fL (80-100); RDW Coefficient of Variation 15.7 % (11.5-14.5); Red Blood Count 4.93 M/uL (4.2-5.4); White Blood Count 27.07 K/uL (4.8-10.8)
[2021-07-08 05:22] LABS: Mean Platelet Volume 11.2 fL (7.4-10.4); Platelet Count 43 K/uL (130-400)
[2021-07-08 05:43] LABS: Creatinine Urine Random 77.3 mg/dl
[2021-07-08 05:49] LABS: Basophils # (auto) 0.03 K/uL (0-0.2); Basophils % (auto) 0.1 %; Echinocytes 1+; Eosinophils # (auto) 0.13 K/uL (0-0.5); Eosinophils % (auto) 0.5 %; Immature Granulocytes # (auto) 0.28 K/uL (0.00-0.02); Lymphocytes # (auto) 1.65 K/uL (1.2-3.4); Lymphocytes % (auto) 6.1 %; Monocytes # (auto) 2.91 K/uL (0.11-0.59); Monocytes % (auto) 10.7 %; Neutrophils # (auto) 22.07 K/uL (1.4-6.5); Neutrophils % (auto) 81.6 %
[2021-07-08 06:03] LABS: Potassium 4.4 mmol/L (3.5-5.1)
[2021-07-08 06:04] LABS: BUN Creatinine Ratio 24.8 (10-20); Calcium 8.1 mg/dl (8.5-10.1); Creatinine Clr Calc Pharmacy 10.5 ml/min; Est GFR (African American) 7.7 ml/min; Est GFR (Non-African American) 6.6 ml/min; Troponin I 0.145 ng/ml (0-0.045)
--- NOTE | 2021-07-08 07:39 | CT Scan Report ---
ABDOMEN AND PELVIS CT WITHOUT CONTRAST CT DOSE: 2424.96 mGy.cm HISTORY: Acute kidney injury. Generalized abdominal pain. TECHNIQUE: Multiaxial CT images of the abdomen and pelvis were performed without contrast. A dose lo wering technique was utilized adhering to the principles of ALARA. COMPARISON STUDY: None. FINDINGS: Patchy densities at the lung bases are nonspecific but favor atelectasis. No pneumoperitone um. No pneumatosis. No acute fractures within the visualized osseous structures. The unenhanced splee n, right adrenal gland, and pancreas are unremarkable. Mild hepatic steatosis. There is a punctate st one within the gallbladder. No gallbladder wall thickening. Calcified granulomas noted within the ramon er. There is a 2.7 cm indeterminate left adrenal gland nodule. There is a punctate stone within the l eft kidney. There is a cluster of small stones within the lower pole the right kidney. There is a 6 m m stone at the right ureteropelvic junction resulting in mild right hydronephrosis. This is best seen on image 210. The bladder is decompressed by Gomez catheter. Vascular calcifications are noted. Prio r hysterectomy. Suboptimal evaluation for bowel pathology due to the lack of intravenous and oral con trast. However, there is no definite bowel wall thickening or obstruction. Colonic diverticulosis. No evidence for acute diverticulitis. Focal aneurysmal dilatation of the proximal infrarenal abdominal aorta measuring up to 4.2 cm in diameter. A 4 cm hypodense lesion within the right kidney which is in completely characters on this noncontrast study but likely represents a cyst. IMPRESSION: 1. A 6 mm obstructing stone within the right ureteropelvic junction resulting in mild right hydroneph rosis. 2. Prominent nephrolithiasis. 3. No definite bowel wall thickening or obstruction. 4. A 4.2 cm infrarenal abdominal aortic aneurysm. 5. A 2.7 cm indeterminate left adrenal gland nodule. This could be further characterized with [facility] ed adrenal MRI or CT if clinically warranted. ACT 112: Negative or not required by law. Electronically signed by: Chris Jorgensen M.D. 07/08/2021 7:38 AM
--- NOTE | 2021-07-08 07:49 | CT Scan Report ---
CT head/brain wo con CLINICAL HISTORY: weakness Technique: Contiguous axial CT images of the head were acquired from the base of the skull to the pauline sandhya without intravenous contrast administration. Images were viewed in brain, subdural and bone [facility]. Automated dose lowering techniques and/or adjustment according to patient size were utilized for this exam. Comparison: None available at the time of this dictation. Findings: Old lacunar infarct is seen in the right caudate nucleus. There is a hypodensity in the right occipit al lobe. Scattered mucous thickening is noted in the ethmoid air cells. A mucous polyp is seen on the right ma xillary sinus. The orbits appear normal. There are no acute fractures of the calvaria or scalp swell ing. Impression: Likely subacute infarct in the right occipital cortex. ACT 112: Negative or not required by law. Electronically signed by: Justin Gambino M.D. 07/08/2021 7:47 AM
--- NOTE | 2021-07-08 07:54 | Ultrasound Report ---
US venous doppler LE BI CLINICAL HISTORY: leg swelling COMPARISON: None available at the time of this dictation. TECHNIQUE: Bilateral lower extremity real-time compression venous ultrasound with Color Doppler imagi ng. Utilizing real-time ultrasonic imaging multiple real time high-resolution ultrasonic images with comp ression and noncompression maneuvers of the deep venous system in addition to color doppler imaging w ere performed from the common femoral vein through the proximal calf veins. FINDINGS: Currently there is normal compressibility of the deep venous system from the common femoral vein thro ugh the proximal calf veins. No current evidence of acute thrombosis is identified. Impression: No evidence of deep venous thrombus. ACT 112: Negative or not required by law. Electronically signed by: Justin Gambino M.D. 07/08/2021 7:52 AM
[2021-07-08 08:10] LABS: Estimated Average Glucose 174 mg/dl; Hemoglobin A1C 7.7 % (4.5-5.6)
--- NOTE | 2021-07-08 08:18 | Magnetic Resonance Report ---
MRI OF THE BRAIN WITHOUT IV CONTRAST CLINICAL HISTORY: Strokelike symptoms. COMPARISON STUDY: CT of the brain dated 07/08/2021. TECHNIQUE: MRI of the brain was performed utilizing various T1 and T2-weighted sequences in the axial , sagittal, and coronal planes. IV contrast was not administered for this examination. FINDINGS: Brain parenchyma: There is a 2.6 cm focus of restricted diffusion identified in the right occipital l obe cortex. When correlated with the CT scan this is consistent with a subacute infarct. Additional s ubcentimeter foci of restricted diffusion are identified in the right frontal cortex comment right ce rebellar hemisphere, and in the high left posterior parietal white matter. These are consistent with acute to subacute ischemia. There is no hemorrhage or mass effect. There is age-related involutional change noting mild subcortical and periventricular microangiopathic disease. A chronic lacunar infarc t is noted in the right internal capsule. Small chronic lacunar infarcts are also seen within both ce rebellar hemispheres. Foci of mineralization are noted in the right basal ganglia. No extra-axial flu id collection is seen. The cerebellar tonsils are normal in configuration. Ventricles, sulci, and cisterns: Prominent secondary to involutional change. Pituitary and sella: Unremarkable. Intracranial vasculature: Normal flow voids are maintained at the skull base. Orbits: The bony orbits are grossly intact. Orbital contents are normal in appearance noting a right ocular lens implant. Sinuses and mastoids: There are bilateral mastoid effusions. A 2.3 cm retention cyst is noted in the right maxillary antrum. Mild mucosal thickening is seen within the ethmoid and left frontal sinuses. Calvarium: Unremarkable. Cervical cord: Partially visualized cervical spinal cord is normal in morphology and signal intensity . IMPRESSION: 1. There is a 2.6 cm focus of restricted diffusion identified in the right occipital lobe consistent with a subacute infarct. 2. Additional subcentimeter foci of restricted diffusion in the right frontal cortex, the right cereb ellar hemisphere, and the left parietal white matter are also consistent with acute to subacute infar cts. The distribution suggests an embolic event. 3. There is no hemorrhage or mass effect. 4. Bilateral mastoid effusions. ACT 112: Negative or not required by law. Electronically signed by: Micheal Conroy M.D. 07/08/2021 8:16 AM
--- NOTE | 2021-07-08 08:18 | XRay Report ---
XR chest 1V portable HISTORY: SEPSIS COMPARISON: None. FINDINGS: No pneumothorax. No pleural effusions. The heart is mildly enlarged. There is a mildly tort uous thoracic aorta. There is diffuse interstitial thickening. Old, healed bilateral rib fractures. IMPRESSION: Cardiomegaly with mild diffuse interstitial thickening. This could be chronic or represent mild conge stive change. ACT 112: Negative or not required by law. Electronically signed by: Chris Jorgensen M.D. 07/08/2021 8:16 AM
--- NOTE | 2021-07-08 08:19 | Magnetic Resonance Report ---
MR ANGIOGRAM OF THE BRAIN CLINICAL HISTORY: Stroke. COMPARISON STUDY: MRI of the brain performed concurrently on 07/08/2021. TECHNIQUE: 3-D [id number] MR angiography of the intracranial circulation is performed. 3-D tumble views are created and assessed. IV contrast was not administered for this examination. The examinati on is modestly degraded by motion artifact. FINDINGS: The [place] of [place] is developmentally complete. The internal carotid arteries are widely patent bilaterally, as are the anterior and middle cerebral arteries. The vertebrobasilar system and posterior cerebral arteries are widely patent. The left vertebral artery is dominant. There is no an eurysm, high-grade stenosis, or focal vessel cutoff seen throughout the intracranial circulation. IMPRESSION: Unremarkable MR angiogram of the brain. ACT 112: Negative or not required by law. Electronically signed by: Micheal Conroy M.D. 07/08/2021 8:18 AM
--- NOTE | 2021-07-08 08:42 | Urology Progress Note ---
Date of Service July 08, 2021 Assessment & Plan (1) Hydronephrosis with renal and ureteral calculus obstruction: (2) MOHINI (acute kidney injury): (3) Acute UTI: Plan: 75yo F admitted with sepsis/presumed UTI and MOHINI in the setting of an obstructing 6mm right UPJ stone with hydronephrosis - Afebrile - Labs reviewed, Wbc down to 27.07 (33.48 yesterday), Hgb stable, and creatinine 5.81 (unknown baseline) - Urine and blood cultures pending, continues on IV Cefepime - Gomez catheter intact and draining clear, yellow urine - Findings reviewed with Dr. Hector, on-call urologist - Given her MOHINI with sepsis/UTI in the setting of an obstructing 6mm right UPJ stone with hydronephrosis, will proceed to OR for Cystoscopy, Right retrograde pyelogram, right ureteral stent placement. Risks and benefits discussed as per consent. - Risks and benefits to be reviewed with patient by Dr. Hector. - OR notified. Preoperative CXR and EKG in chart. Covid test negative. On IV Cefepime. - Expected clinical course reviewed with patient, she is agreeable. All questions were answered. - Keep NPO for procedure - Strain all urine - Will continue to follow - Update provided to patient's daughter, Zuri. Admission and Anticipated Discharge Date Admission Date: July 08, 2021 Supervising Physician Co-Signing Physician Notes I have seen and examined Ms. Gilbert and agree with the above documentation. Given the presence of urinary tract infection and an obstructing stone, she requires right ureteral stent placement to allow decompression of her urinary tract. We discussed this at the bedside. I reviewed the risks and benefits of the procedure, including bleeding, infection, inability to place stent, need for future treatment of her stone. She expressed understanding and agreed to proceed. Subjective Pt examined at bedside this AM. Awake, resting in bed on arrival. No acute distress. On 2L O2 via NC. She denies any pain or discomfort at present. No fevers or chills. Some nausea, no vomiting. Gomez catheter intact, draining clear, yellow urine. No dysuria. She reports urinary urgency at baseline. On oxybutynin and flomax. She has been NPO. Review of Systems Constitutional: as per Subjective / HPI Gastrointestinal: as per Subjective / HPI Genitourinary: as per Subjective / HPI Physical Exam Constitutional: + obese and cooperative; no acute distress Respiratory: normal respiratory effort and able to speak in complete sentences; no labored breathing and no audible wheezes Gastrointestinal (Abdomen): Inspection/Auscultation: abdomen normal to inspect ion; abdomen not distended Percussion/Palpation: abdomen soft; abdomen nontender and no guarding Musculoskeletal: Head/Neck/Chest: normocephalic Skin: No visible rashes or lesions to exposed skin areas Neurologic: awake Psychiatric: Orientation: alert and oriented x 3 Genitourinary: no CVA tenderness Gomez catheter intact Results & Data ([facility]) Vital Signs (Past 12 Hours) Vital Signs Temp Pulse Pulse Resp BP BP Pulse Ox 07/08/21 07:46 36.6 C 88 23 141/101 H 92 07/08/21 04:45 136/78 07/08/21 03:41 36.4 C L 95 H 19 91/74 L 07/08/21 02:06 90 22 89/58 L 93 07/08/21 00:18 91 H 20 98/62 L 92 07/07/21 21:08 90 19 108/71 95 07/07/21 20:58 36.7 C 91 H 16 108/71 94 PG Care Time/CCT Total # of Minutes Spent Total Time Spent with Patient: Total time spent is greater than 50% in coordination of care (as documented) at patient's floor/unit and/or counseling patient: Coding Level of Care Code None Diagnoses Hydronephrosis with renal and ureteral calculus obstruction N13.2 MOHINI (acute kidney injury) N17.9 Acute UTI N39.0
[2021-07-08] MEDS ORDERED: ONDANSETRON INJ 2 MG/ML 2 ML VIAL ONE ×2 (08:43→13:09)
--- NOTE | 2021-07-08 08:49 | Ultrasound Report ---
ULTRASOUND OF THE CAROTID ARTERIES CLINICAL HISTORY: cva overall weakness for months COMPARISON: None available at the time of this dictation. TECHNIQUE: Real-time, grayscale, and color Doppler sonography of the carotid arteries is performed. I mages are reviewed in the transverse and longitudinal planes. FINDINGS: Blood pressure in the right arm measures 87/40, decreased via subclavian steal and blood pressure in the left arm measures 136/78. The carotid arteries are patent bilaterally and demonstrate antegrade flow. There is mild atheroscler otic plaque on the right and mild atherosclerotic plaque on the left. Normal doppler arterial wavefor ms are seen throughout. Velocity measurements are listed below. Common carotid peak systolic velocity (cm/sec): RIGHT: 120 LEFT: 106 ICA proximal peak systolic velocity (cm/sec): RIGHT: 136 LEFT: 116 ICA mid peak systolic velocity (cm/sec): RIGHT: 92 LEFT: 58 ICA distal peak systolic velocity (cm/sec): RIGHT: 81 LEFT: 57 ICA/CC peak systolic ratio: RIGHT: 1.1 LEFT: 1.1 Reverse flow is seen in the right vertebral artery. The external carotid arteries are patent. IMPRESSION: 1. There is no sonographic evidence of hemodynamically significant stenosis in the right or left iglesias tid arterial system. 2. Reversed flow in the right vertebral artery in this patient with subclavian steal syndrome. ACT 112: Negative or not required by law. Electronically signed by: Justin Gambino M.D. 07/08/2021 8:48 AM
[2021-07-08] MEDS: OXYBUTYNIN CHLORIDE XL 5 MG TABCR PO SCH (08:57)
[2021-07-08] MEDS: ATORVASTATIN 20 MG TAB PO SCH (08:57)
--- NOTE | 2021-07-08 11:11 | Anesthesiology Consultation ---
Date of Service July 08, 2021 Assessment & Plan Chart Review Chart Review: Acceptable Risk for Surgery and Patient NOT seen in Pre Admission Testing Consults Requested none ASA [id number] Proposed Anesthesia Anesthesia Type: MAC Risk / Benefits Reviewed With: PT / POA / Parent / Guardian, Accepts Plan and Informed Consent Obtained History Surgery Operation Date: 07/08/21 08:20 Proposed Procedures p Cystoscopy, Retrograde Pyelogram, Right Stent Placement - Simon Hector MD Height/Weight Height: 5 ft 3 in Weight: 116.4 kg Allergies Allergy/AdvReac Type Severity Reaction Status Date / Time ampicillin Allergy Unknown . Verified 07/07/21 21:43 erythromycin base Allergy Unknown . Verified 07/07/21 21:43 tetracycline Allergy Unknown . Verified 07/07/21 21:43 Medications Home Medications Medication Instructions Recorded Confirmed Last Taken atorvastatin 20 mg tablet (Lipitor) 20 mg PO DAILY 07/07/21 07/07/21 Unknown chlorpheniramine-acetaminophen 2 1 tab PO Q6H PRN 07/07/21 07/07/21 Unknown mg-325 mg tablet lisinopril 10 mg tablet (Zestril) 10 mg PO DAILY 07/07/21 07/07/21 Unknown oxybutynin chloride 5 mg 5 mg PO DAILY 07/07/21 07/07/21 Unknown tablet,extended release 24 hr (Ditropan XL) Aspir-81 81 mg PO DAILY 07/08/21 07/08/21 Unknown Active Medications Generic Name Dose Route Start Last Admin Trade Name Freq PRN Reason Stop Dose Admin Atorvastatin Calcium 20 mg 07/08/21 09:00 07/08/21 08:57 Atorvastatin 20 Mg Tab PO 08/07/21 08:59 Not Given DAILY MEREDITH Sodium Chloride 1,000 mls @ 125 mls/hr 07/08/21 02:15 07/08/21 03:49 Nss 1000ml IV 08/07/21 02:14 125 mls/hr .Q8H MEREDITH Administration Promethazine HCl 12.5 mg/ 50.5 mls @ 202 mls/hr 07/08/21 03:35 07/08/21 09:12 Sodium Chloride IV 08/07/21 03:34 Infused Q6H PRN Infusion Nausea And Vomiting Oxybutynin Chloride 5 mg 07/08/21 09:00 07/08/21 08:57 Oxybutynin Chloride Xl 5 Mg Tabcr PO 08/07/21 08:59 Not Given DAILY MEREDITH NPO Date Last Intake of Fluids: 07/07/21 Time Last Intake of Fluids: 23:00 Date Last Intake of Solids: 07/07/21 Time Last Intake of Solids: 23:00 Past Medical History Medical History MOHINI (acute kidney injury) CHF (congestive heart failure) Morbid obesity Smoker Stress incontinence Past Surgical History Surgical History H/O hysterectomy with oophorectomy History of appendectomy Past Anesthesia History No Hx of Anesthesia Complications and No Family Hx of Anesthesia Complications History of PONV No Hx of PONV and No Hx of Motion Sickness Social History Smoking Status: Current every day smoker tobacco type: cigarettes Do You Dip or Chew Tobacco: No Hx Alcohol Use: No Hx Substance Use: No Physical Exam Vital Signs Last Vital Signs Temp 98.6 F 07/08/21 10:52 Pulse 87 07/08/21 10:52 Resp 18 07/08/21 10:52 BP 121/68 07/08/21 10:52 Pulse Ox 92 07/08/21 10:52 Constitutional + morbidly obese; no acute distress ENMT Mouth: + dentures and + poor dentition Thyromental Distance: > or= 3.5 Finger Breadths Mallampati Class: III Neck normal visual inspection Respiratory normal respiratory effort; no respiratory distress Auscultation: lungs clear to auscultation bilaterally Cardiovascular Rate/Rhythm: regular rate and regular rhythm Psychiatric Orientation: alert and oriented x 3 Testing Laboratory Results 07/08/21 05:06 07/08/21 05:06 PT 10.6 Seconds (9.0-12.0) 07/07/21 21:12 INR 1.0 (0.9-1.1) 07/07/21 21:12 APTT 29.9 Seconds (21.0-31.0) 07/07/21 21:12 Hemoglobin A1c 7.7 % (4.5-5.6) H 07/07/21 21:12 Urine Color Dark Yellow 07/07/21 Unknown Urine Appearance Turbid (Clear) A 07/07/21 Unknown Urine pH 5.0 (4.5-7.5) 07/07/21 Unknown Ur Specific [place] 1.013 (1.000-1.030) 07/07/21 Unknown Urine Protein 1+ (Negative) H 07/07/21 Unknown Urine Glucose (UA) Negative (Negative) 07/07/21 Unknown Urine Ketones Negative (Negative) 07/07/21 Unknown Urine Nitrite Negative (Negative) 07/07/21 Unknown Ur Leukocyte Esterase 3+ (Negative) H 07/07/21 Unknown Urine WBC (Auto) >30 /hpf (0-5) H 07/07/21 Unknown Urine RBC (Auto) 5-10 /hpf (0-4) H 07/07/21 Unknown U Hyaline Cast (Auto) 0 /lpf (0-5) 07/07/21 Unknown U Epithel Cells (Auto) >30 /lpf (0-5) H 07/07/21 Unknown Urine Bacteria (Auto) 1+ (Negative) H 07/07/21 Unknown Electrocardiogram Date: 07/07/21 Findings: + NSR @ (95) Chest X-Ray Date: 07/07/21 IMPRESSION: Cardiomegaly with mild diffuse interstitial thickening. This could be chronic or represent mild congestive change. Echocardiogram Date: 07/08/21 EF: 55-60 LV Function: normal Valvular Disease: +
--- NOTE | 2021-07-08 11:30 | History & Physical Bridge Note ---
Date of Service July 08, 2021 History & Physical Bridge Note I have examined the patient, reviewed the History & Physical and in the interval since the performance of the History & Physical I have noted the following changes of clinical significance: no changes noted Plan for right ureteral stent placement. We discussed risks and benefits of the procedure. She expressed understanding and agreed to proceed.
[2021-07-08] MEDS ORDERED: PHENYLEPHRINE 100MCG/ML 5ML SYR IV PRN (11:43)
[2021-07-08] MEDS ORDERED: LABETALOL HCL IV 5 MG/ML 20ML IV PRN (11:43)
[2021-07-08] MEDS ORDERED: ONDANSETRON INJ 2 MG/ML 2 ML VIAL IV PRN ×2 (11:43→13:08)
[2021-07-08] MEDS ORDERED: ATROPINE SULFATE 0.1 MG/ML 10ML SYR IV PRN (11:43)
[2021-07-08] MEDS ORDERED: ePHEDrine sulfate 50 MG/ML AMP IV PRN (11:43)
[2021-07-08] MEDS ORDERED: fentaNYL citrate 100 MCG/2 ML VIAL IV PRN (11:43)
--- NOTE | 2021-07-08 12:03 | Neurology Consultation ---
Date of Consultation July 08, 2021 Assessment & Plan (1) CVA (cerebral vascular accident): 1. optimize HTN HLD, DM LDL <70 2. aspirin 81 mg daily or switch to plavix 75 mg only due to plt count- likely not compliant to meds- aspirin 81 mg for now 3. PT/OT speech for discharge needs 4. TTE - r/o emboli 5. multiple infarct will need ZIO as outpatient if no irregular heart rate is seen in hospital or any other source found 6. urology - stent placed and now on antibiotics 7. will need placement for rehab and nursing check at home for safety and may need further supervision at home follow up with neurology 4-6 weeks after discharge from hospital Supervising Physician Co-Signing Physician Notes Patient was seen and examined. Patient presenting with generalized weakness in the setting or urosepsis and obstructive hydronephrosis. Had MRI on admission which showed B/L hemisphere embolic strokes. Patient is poor historian. On examine patient is mildly aphasic with weakness / deconditioning in both legs. R ecommend ASA 81 mg daily in setting of thrombocytopenia. TTE no cardiac source of embolism. Suspect PAF. Continue telemetry. Will likely need cardiology referral for eval for PAF as outpatient as well as sleep study. Recommend high intensity statin. PT/OT for rehab needs. Normotension, SBP<140, DBP<90. History of Present Illness Reason for Consultation: CVA Requesting Physician: Carli Lambert MD Attending Physician: Carli Lambert MD History of Present Illness Mercedes is a 75 year old female who has a PMH aortic stenosis, HLD, hyponatremia, thrombcytopenia, CHF, MOHINI morbid obesity, smoker, hypoxia who presents [facility] 07/07/2021 for weakness. She is not sure when her symptoms began but many weeks to months ago. She reports a mild difficulty breathing. She reports increased swelling in her lower extremities. She is so weak that she could not get up to use the restroom. She had a stent place earlier today for hydronephrosis and is more alert now. Denies pain, SOB, CP. Allergies Allergy/AdvReac Type Severity Reaction Status Date / Time ampicillin Allergy Unknown . Verified 07/07/21 21:43 erythromycin base Allergy Unknown . Verified 07/07/21 21:43 tetracycline Allergy Unknown . Verified 07/07/21 21:43 Home Medications Medication Instructions Recorded Confirmed Type atorvastatin 20 mg tablet (Lipitor) 20 mg PO DAILY 07/07/21 07/07/21 History chlorpheniramine-acetaminophen 2 1 tab PO Q6H PRN 07/07/21 07/07/21 History mg-325 mg tablet lisinopril 10 mg tablet (Zestril) 10 mg PO DAILY 07/07/21 07/07/21 History oxybutynin chloride 5 mg 5 mg PO DAILY 07/07/21 07/07/21 History tablet,extended release 24 hr (Ditropan XL) Aspir-81 81 mg PO DAILY 07/08/21 07/08/21 History Patient History Medical History (Updated 07/08/21 @ 12:34 by RAUDEL CrockerC) MOHINI (acute kidney injury) Aortic stenosis CHF (congestive heart failure) Dyslipidemia Hyponatremia Morbid obesity Smoker Stress incontinence Thrombocytopenia Surgical History H/O hysterectomy with oophorectomy History of appendectomy Social History Smoking Status: Current every day smoker Second Hand Exposure: No; Do You Dip or Chew Tobacco: No; Tobacco Cessation Education Requested by Patient: No Hx Alcohol Use: No Hx Substance Use: No Communication Ability: Unable Biological Aide Required: No Beliefs That Will Affect Care: None marital status: Current Living Situation: Alone Other Information That Helps Us Care for You: No Feels Safe at Home: Yes Safety Concerns: Feels Safe At This Time Assistive Devices: Glasses and Oxygen - Continuous Review of Systems Review of Systems: All systems reviewed & are unremarkable except as noted in HPI & below Physical Exam Physical Exam: Physical Exam: Constitutional: appearance ill appearing obese pleasant cooperative, UGASHIK Ears, Nose, Mouth and Throat: mucous membranes moist, no injection and skin normal, eyes normal Cardiovascular: regular rate rhythm Respiratory: normal respiratory effort Musculoskeletal: LE bilaterally skin puckering bilaterally to midshin Skin: no stigmata of neurocutaneous disease noted and normal and intact Eyes: extraocular muscles intact (EOMI) and pupils equal, round and reactive to light (PERRL) NEUROLOGIC EXAMINATION: Mental status: Alert and interactive Oriented to person Speech hesitant and mild expressive respective aphasia Cranial Nerves smile eye brow raise symmetric Sensory: light and cool touch Coordination: finger to nose no bipass, rapid hand movement intact, no pronator drift Gait/Stance: Posture lying in bed Motor: Negative for pronator drift of out stretched arms with eyes closed. Strength: hand operations leader bicep triceps 4+/5, hip flex left 4+/5, right 4/5 Results & Data ([facility]) Vital Signs (Past 12 Hours) Vital Signs Temp Pulse Resp BP Pulse Ox 07/08/21 11:30 36.8 C 89 20 164/89 H 92 07/08/21 10:52 37 C 87 18 121/68 92 07/08/21 09:35 88 21 121/68 92 07/08/21 07:46 36.6 C 88 23 141/101 H 92 07/08/21 04:45 136/78 07/08/21 03:41 36.4 C L 95 H 19 91/74 L 07/08/21 02:06 90 22 89/58 L 93 07/08/21 00:18 91 H 20 98/62 L 92 Laboratory Results Abnormal lab results 07/07/21 07/07/21 07/07/21 Range/Units 21:12 21:12 21:12 WBC 33.48 H* (4.8-10.8) K/uL MCHC 36.4 H (32-36) g/dL RDW Std Deviation (36.4-46.3) fL RDW Coeff of [place] 15.6 H (11.5-14.5) % Plt Count 42 L (130-400) K/uL MPV 11.1 H (7.4-10.4) fL Neut # (Auto) (1.4-6.5) K/uL Rogers # (Auto) (0.11-0.59) K/uL Immature Gran # (Auto) (0.00-0.02) K/uL Neutrophils # (Manual) 31.44 H (1.4-6.5) K/uL Total Absolute Neuts 31.44 H (1.4-6.5) K/uL Lymphocytes # (Manual) 1.17 L (1.2-3.4) K/uL Total Abs Lymphocytes 1.17 L (1.2-3.4) K/uL Monocytes # (Manual) 0.87 H (0.11-0.59) K/uL VBG pH (7.36-7.41) POC Sodium (135-144) mmol/L Sodium (136-145) mmol/L POC Chloride (101-112) mmol/L Chloride (98-107) mmol/L POC Total CO2 (24-31) mmol/L Anion Gap (3-11) POC BUN (7-18) mg/dl BUN (7-18) mg/dl Creatinine (0.6-1.2) mg/dl POC Creatinine (0.6-1.3) mg/dl BUN/Creatinine Ratio (10-20) Glucose (70-99) mg/dl POC Glucose (other) (70-99) mg/dl Hemoglobin A1c (4.5-5.6) % Osmolality (280-300) mOsm/kg Calcium (8.5-10.1) mg/dl POC Ioniz Calcium Jenniffer (1.12-1.32) mmol/l Lactate Dehydrogenase 265 H (84-246) U/L Total Creatine Kinase (26-192) U/L Troponin I (0-0.045) ng/ml NT-Pro-B Natriuret Pep (0-900) pg/ml Total Protein (6.4-8.2) gm/dl Albumin (3.4-5.0) gm/dl Albumin/Globulin Ratio (0.9-2) Triglycerides (0-150) mg/dl Procalcitonin > 200.00 H (0-0.5) ng/ml Urine Appearance (Clear) Urine Protein (Negative) Urine Blood (Negative) Ur Leukocyte Esterase (Negative) Urine WBC (Auto) (0-5) /hpf Urine RBC (Auto) (0-4) /hpf U Epithel Cells (Auto) (0-5) /lpf Urine Bacteria (Auto) (Negative) Urine Osmolality (500-800) mOsm/kg 07/07/21 07/07/21 07/07/21 Range/Units 21:12 21:12 22:38 WBC (4.8-10.8) K/uL MCHC (32-36) g/dL RDW Std Deviation (36.4-46.3) fL RDW Coeff of Mary Kay (11.5-14.5) % Plt Count (130-400) K/uL MPV (7.4-10.4) fL Neut # (Auto) (1.4-6.5) K/uL Rogers # (Auto) (0.11-0.59) K/uL Immature Gran # (Auto) (0.00-0.02) K/uL Neutrophils # (Manual) (1.4-6.5) K/uL Total Absolute Neuts (1.4-6.5) K/uL Lymphocytes # (Manual) (1.2-3.4) K/uL Total Abs Lymphocytes (1.2-3.4) K/uL Monocytes # (Manual) (0.11-0.59) K/uL VBG pH (7.36-7.41) POC Sodium (135-144) mmol/L Sodium 130 L (136-145) mmol/L POC Chloride (101-112) mmol/L Chloride 94 L (98-107) mmol/L POC Total CO2 (24-31) mmol/L Anion Gap 13.0 H (3-11) POC BUN (7-18) mg/dl BUN 137 H (7-18) mg/dl Creatinine 5.87 H* (0.6-1.2) mg/dl POC Creatinine (0.6-1.3) mg/dl BUN/Creatinine Ratio 23.2 H (10-20) Glucose 131 H (70-99) mg/dl POC Glucose (other) (70-99) mg/dl Hemoglobin A1c 7.7 H (4.5-5.6) % Osmolality 321 H (280-300) mOsm/kg Calcium 7.9 L (8.5-10.1) mg/dl POC Ioniz Calcium Jenniffer (1.12-1.32) mmol/l Lactate Dehydrogenase (84-246) U/L Total Creatine Kinase 230 H (26-192) U/L Troponin I 0.159 H* (0-0.045) ng/ml NT-Pro-B Natriuret Pep 2887 H (0-900) pg/ml Total Protein 6.2 L (6.4-8.2) gm/dl Albumin 2.2 L (3.4-5.0) gm/dl Albumin/Globulin Ratio 0.6 L (0.9-2) Triglycerides (0-150) mg/dl Procalcitonin (0-0.5) ng/ml Urine Appearance (Clear) Urine Protein (Negative) Urine Blood (Negative) Ur Leukocyte Esterase (Negative) Urine WBC (Auto) (0-5) /hpf Urine RBC (Auto) (0-4) /hpf U Epithel Cells (Auto) (0-5) /lpf Urine Bacteria (Auto) (Negative) Urine Osmolality (500-800) mOsm/kg 07/07/21 07/07/21 07/07/21 Range/Units 22:38 22:44 Unknown WBC (4.8-10.8) K/uL MCHC (32-36) g/dL RDW Std Deviation (36.4-46.3) fL RDW Coeff of Mary Kay (11.5-14.5) % Plt Count (130-400) K/uL MPV (7.4-10.4) fL Neut # (Auto) (1.4-6.5) K/uL Rogers # (Auto) (0.11-0.59) K/uL Immature Gran # (Auto) (0.00-0.02) K/uL Neutrophils # (Manual) (1.4-6.5) K/uL Total Absolute Neuts (1.4-6.5) K/uL Lymphocytes # (Manual) (1.2-3.4) K/uL Total Abs Lymphocytes (1.2-3.4) K/uL Monocytes # (Manual) (0.11-0.59) K/uL VBG pH 7.34 L (7.36-7.41) POC Sodium 130 L (135-144) mmol/L Sodium (136-145) mmol/L POC Chloride 95 L (101-112) mmol/L Chloride (98-107) mmol/L POC Total CO2 23 L (24-31) mmol/L Anion Gap (3-11) POC BUN 126 H* (7-18) mg/dl BUN (7-18) mg/dl Creatinine (0.6-1.2) mg/dl POC Creatinine 6.3 H* (0.6-1.3) mg/dl BUN/Creatinine Ratio (10-20) Glucose (70-99) mg/dl POC Glucose (other) 130 H (70-99) mg/dl Hemoglobin A1c (4.5-5.6) % Osmolality (280-300) mOsm/kg Calcium (8.5-10.1) mg/dl POC Ioniz Calcium Jenniffer 1.03 L (1.12-1.32) mmol/l Lactate Dehydrogenase (84-246) U/L Total Creatine Kinase (26-192) U/L Troponin I (0-0.045) ng/ml NT-Pro-B Natriuret Pep (0-900) pg/ml Total Protein (6.4-8.2) gm/dl Albumin (3.4-5.0) gm/dl Albumin/Globulin Ratio (0.9-2) Triglycerides (0-150) mg/dl Procalcitonin (0-0.5) ng/ml Urine Appearance Turbid A (Clear) Urine Protein 1+ H (Negative) Urine Blood 3+ H (Negative) Ur Leukocyte Esterase 3+ H (Negative) Urine WBC (Auto) >30 H (0-5) /hpf Urine RBC (Auto) 5-10 H (0-4) /hpf U Epithel Cells (Auto) >30 H (0-5) /lpf Urine Bacteria (Auto) 1+ H (Negative) Urine Osmolality (500-800) mOsm/kg 07/08/21 07/08/21 07/08/21 Range/Units 05:06 05:06 05:18 WBC 27.07 H (4.8-10.8) K/uL MCHC (32-36) g/dL RDW Std Deviation 47.0 H (36.4-46.3) fL RDW Coeff of Mary Kay 15.7 H (11.5-14.5) % Plt Count 43 L (130-400) K/uL MPV 11.2 H (7.4-10.4) fL Neut # (Auto) 22.07 H (1.4-6.5) K/uL Rogers # (Auto) 2.91 H (0.11-0.59) K/uL Immature Gran # (Auto) 0.28 H (0.00-0.02) K/uL Neutrophils # (Manual) (1.4-6.5) K/uL Total Absolute Neuts (1.4-6.5) K/uL Lymphocytes # (Manual) (1.2-3.4) K/uL Total Abs Lymphocytes (1.2-3.4) K/uL Monocytes # (Manual) (0.11-0.59) K/uL VBG pH (7.36-7.41) POC Sodium (135-144) mmol/L Sodium 131 L (136-145) mmol/L POC Chloride (101-112) mmol/L Chloride 96 L (98-107) mmol/L POC Total CO2 (24-31) mmol/L Anion Gap (3-11) POC BUN (7-18) mg/dl BUN 143 H (7-18) mg/dl Creatinine 5.81 H* (0.6-1.2) mg/dl POC Creatinine (0.6-1.3) mg/dl BUN/Creatinine Ratio 24.8 H (10-20) Glucose 119 H (70-99) mg/dl POC Glucose (other) (70-99) mg/dl Hemoglobin A1c (4.5-5.6) % Osmolality (280-300) mOsm/kg Calcium 8.1 L (8.5-10.1) mg/dl POC Ioniz Calcium Jenniffer (1.12-1.32) mmol/l Lactate Dehydrogenase (84-246) U/L Total Creatine Kinase (26-192) U/L Troponin I 0.145 H* (0-0.045) ng/ml NT-Pro-B Natriuret Pep (0-900) pg/ml Total Protein (6.4-8.2) gm/dl Albumin (3.4-5.0) gm/dl Albumin/Globulin Ratio (0.9-2) Triglycerides 426 H (0-150) mg/dl Procalcitonin (0-0.5) ng/ml Urine Appearance (Clear) Urine Protein (Negative) Urine Blood (Negative) Ur Leukocyte Esterase (Negative) Urine WBC (Auto) (0-5) /hpf Urine RBC (Auto) (0-4) /hpf U Epithel Cells (Auto) (0-5) /lpf Urine Bacteria (Auto) (Negative) Urine Osmolality 346 L (500-800) mOsm/kg Diagnostic Findings carotid doppler-here is no sonographic evidence of hemodynamically significant stenosis in the right or left carotid arterial system. Reversed flow in the right vertebral artery in this patient with subclavian steal syndrome. MRA head-Unremarkable MR angiogram of the brain. MRI brain-There is a 2.6 cm focus of restricted diffusion identified in the right occipital lobe consistent with a subacute infarct. Additional subcentimeter foci of restricted diffusion in the right frontal cortex, the right cerebellar hemisphere, and the left parietal white matter are also consistent with acute to subacute infarcts. The distribution suggests an embolic event. There is no hemorrhage or mass effect. Bilateral mastoid effusions. CT abdomin pelvis-A 6 mm obstructing stone within the right ureteropelvic junction resulting in mild right hydronephrosis. Prominent nephrolithiasis. No definite bowel wall thickening or obstruction. A 4.2 cm infrarenal abdominal aortic aneurysm. A 2.7 cm indeterminate left adrenal gland nodule. This could be further characterized with dedicated adrenal MRI or CT if clinically warranted.
[2021-07-08] MEDS ORDERED: DIATRIZOATE MEGLUMINE 30% 100ML VIAL INSTIL ONE (12:04)
[2021-07-08] MEDS ORDERED: PROPOFOL IV EMULSION 10 MG/ML 20 ML VIAL IV ONE (12:17)
--- NOTE | 2021-07-08 12:17 | Operative Report ---
PG Post Operative Report Pre & Post Diagnosis Operation Date: 07/08/21 08:20 <No data on this case meets the specified criteria> I identified the patient and participated in the time-out.: Yes Procedure Operation Date: 07/08/21 08:20 cystoscopy, right retrograde pyelogram, right ureteral stent placement Surgeon Simon Hector MD Validation Engineer none Estimated Blood Loss 0 Findings Consistent with Post-Op Diagnosis Specimens none Drains 6 Fr x 24 cm double-J stent in right ureter, 16 Fr elkins per urethra. Anesthesia Type MAC Disposition Disposition: Surgical ICU Indications This is a 75 yo female who presented to the hospital with fatigue, found to have a right obstructing ureteral stone and concern for a UTI. To allow maximal drainage of her kidney and urinary tract, to treat the infection, she presents to the OR for right ureteral stent placement. Description of Procedure The patient was identified and informed consent was confirmed. They were marked on the right side than were taken to the operating room. They were placed in the dorsal lithotomy position with all pressure points appropriately padded. They were prepped and draped in the usual sterile fashion. Anesthesia was initiated and a preoperative timeout was performed. A well-lubricated cystoscope was inserted per urethra and panendoscopy was performed. Her bladder was edematous, but no tumors or stones were appreciated. Ureteral orifices were in orthotopic position. The right ureteral orifice was identified and cannulated with a 5 [place]ar[place] open- ended catheter. A retrograde pyelogram was performed demonstrating hydronephro sis of the right kidney, no filling defect was appreciated. A sensor wire was advanced up to the kidney. Over the wire, then a 6 [place]ar[place]uan x 24 centimeter double-J ureteral stent was advanced. When the wire was removed, the proximal curl was visualized in the kidney with x-ray, and the distal curl visualized in the bladder with the cystoscope. There was cloudy/purulent drainage from the ureteral stent. A urine sample was obtained for culture. A 16 Fr elkins catheter was placed per urethra with 10 mL in the balloon to allow maximal decompression. The patient was then awakened from anesthesia and was brought to the PACU in stable condition. I attest to the content of the Intraoperative Record and any orders documented therein. Any exceptions are noted below.
--- NOTE | 2021-07-08 12:50 | Anesthesiology Progress Note ---
Date of Service July 08, 2021 Anesthesia Post Procedure Vital Signs Vital Signs: Temp Pulse Pulse Resp BP BP Pulse Ox 07/08/21 12:40 86 20 127/59 L 92 07/08/21 12:30 89 22 150/82 H 92 07/08/21 12:21 36.2 C L 85 14 140/58 L 95 07/08/21 11:30 36.8 C 89 20 164/89 H 92 07/08/21 10:52 37 C 87 18 121/68 92 07/08/21 09:35 88 21 121/68 92 07/08/21 07:46 36.6 C 88 23 141/101 H 92 07/08/21 04:45 136/78 07/08/21 03:41 36.4 C L 95 H 19 91/74 L 07/08/21 02:06 90 22 89/58 L 93 07/08/21 00:18 91 H 20 98/62 L 92 07/07/21 21:08 90 19 108/71 95 07/07/21 20:58 36.7 C 91 H 16 108/71 94 Transfer of Care Handoff Completed per policy Notes Mental Status: alert / awake / arousable Patient Amnestic to Procedure: Yes Nausea / Vomiting: adequately controlled Pain: adequately controlled Airway Patency, RR, SpO2: stable & adequate BP & HR: stable & adequate Hydration State: stable & adequate Anesthetic Complications: no major complications apparent and Pt Satisfied with anesthetic care
--- NOTE | 2021-07-08 13:08 | Fluoroscopy Report ---
INTRAOPERATIVE RADIOGRAPHS CLINICAL HISTORY: Right-sided ureteral stent placement. Fluoroscopy time: 10 seconds. FINDINGS: 5 spot fluoroscopic views of the right abdomen are correlated with abdominal CT dated 07/08. The initial image shows contrast opacification of the mid to distal right ureter which is norm al in caliber. A wire is placed in the right renal collecting system which shows hydronephrosis. The final image shows the proximal end of a right ureteral stent in appropriate position. IMPRESSION: Intraoperative images from a right ureteral stent placement procedure as above. Electronically signed by: Micheal Conryo M.D. 07/08/2021 1:07 PM
[2021-07-08] MEDS ORDERED: DEXTROSE 50% 50 ML SYRINGE IV PRN (20:12)
[2021-07-08] MEDS ORDERED: GLUCAGON FOR INJ 1 MG VIAL SQ PRN (20:12)
[2021-07-08] MEDS ORDERED: GLUCOSE 10 TABS/TUBE PO PRN (20:12)
[2021-07-08] MEDS ORDERED: GLUCOSE 40% GEL 15 GM TUBE PO PRN (20:12)
[2021-07-08] MEDS ORDERED: CARBOHYDRATES FOR HYPOGLYCEMIA PO PRN (20:12)
--- NOTE | 2021-07-08 20:19 | Consultation Report ---
NEPHROLOGY CONSULTATION NOTE DATE OF CONSULTATION: 07/08/2021. REASON FOR CONSULTATION: Severe acute renal failure. HISTORY OF PRESENT ILLNESS: The patient is a 75-year-old female who presented to the hospital yester day because of significant weakness in her legs, especially in the right. As a result, she was unabl e to walk. She was brought to the Emergency Department by ambulance. [facility] significant problems including acute to subacute infarct as well as severe acute simon al failure with BUN of 126 and a creatinine of 6.3. CT abdomen and pelvis shows obstructive kidney s tone resulting in right hydronephrosis. She is currently in the intensive care unit. She is still v sheryl weak. She was also noted to have significant lower extremity edema. Because of the severe renal failure and right sided hydronephrosis, she was taken to the operating room earlier today by Urology and she had cystoscopy, right retrograde pyelogram and right ureteral stent placement. Her urine is consistent with UTI and her white count was extremely elevated and as a result, she is also being tr eated for urosepsis. She has a Gomez catheter at this time and since admission, she has made about 8 00 mL of urine. While I was talking to the patient, she underwent into significant tachycardia with a heart rate in the 170s. She denies any chest pain, shortness of breath, orthopnea, PND, but does garnica ve significant lower extremity edema. She did have echocardiogram done earlier today, which showed c oncentric left ventricular hypertrophy, but normal ejection fraction and no major abnormality otherwi se. She is currently getting normal saline at 125 mL per hour and antibiotics. She has also been se en by Neurology already and has been suggested to do conservative medical management at this point. Her creatinine this morning, came down a little bit to 5.81, but the BUN went up to 143. We do not h ave any baseline kidney function and the patient is really not able to give a detailed account of her renal issues in the past. PAST MEDICAL AND SURGICAL HISTORY: Includes eye surgery, appendicectomy, total abdominal hysterectom y, hyperlipidemia, hypertension, urinary incontinence, history of acute kidney injury, morbid obesity , history of diastolic congestive heart failure, hysterectomy with oophorectomy, appendicectomy. SOCIAL HISTORY: Current everyday smoker. She lives alone. She uses oxygen continuous. REVIEW OF SYSTEMS: Unless detailed in HPI, 12 systems reviewed and negative. ALLERGIES: List reviewed. MEDICATIONS: Home medication list includes atorvastatin, lisinopril 10 mg, oxybutynin 5 daily and as pirin 81 mg daily. FAMILY HISTORY: Negative for renal disease or dialysis. PHYSICAL EXAMINATION: VITAL SIGNS: Blood pressure 122/62, pulse rate 88, temperature 36.6, 90% oxygen saturation on 3 lite rs nasal cannula. HEENT: Mucous membrane is moist. NECK: Supple, short, obese neck, so cannot assess JVD. NEUROLOGIC: She is awake and alert and was able to answer questions, but her speech is quite slow. CHEST: Bilateral decreased breath sound. Limited quality exam. CARDIOVASCULAR: S1 and S2, very tachycardic at the time of my examination, in fact, her heart rate w as 170, but regular. Soft systolic murmur. ABDOMEN: Soft, nontender, obese. EXTREMITIES: Show 1+ edema bilaterally. LABORATORY TEST: Her white count was very elevated at the time of admission with 33,000, this mornin g it is down a little bit to 27,000, platelet count is also low at 43,000. Sodium 131, potassium 4.4 , BUN is up from yesterday to 143. Creatinine is down from yesterday to 5.81. Urine was very active with 3+ blood, 1+ protein, turbid appearance, lots of RBCs, WBCs, epithelial cells. Serum sodium wa s low at 130. Chest x-ray showed cardiomegaly with mild diffuse interstitial thickening. CT abdomen and pelvis showed 6 mm obstructive kidney stone with a right ureteropelvic junction with right hydro nephrosis. MRI of the brain did show acute versus subacute infarct. Duplex of the legs did not show DVT. Echocardiogram was unremarkable except concentric LVH with some diastolic abnormality, normal ejection fraction of 55%. ASSESSMENT AND PLAN: A 75-year-old female who was admitted with extreme weakness, especially of the right leg. She was found to have multiple problems on detailed workup includin. Acute renal failure for which I have been consulted. 2. Acute versus subacute stroke. 3. Kidney stone with obstruction in the right side with right hydronephrosis. 4. Urosepsis with systemic inflammatory response syndrome. 5. Now has tachycardia. Acute renal failure: At this point, I have to assume this is most likely acute tubular necrosis in t he setting of urosepsis with contribution from obstructive uropathy with mild right hydronephrosis. Further renal recovery in the coming days will be able to explain this better. Her platelet count is low, but this is in the setting of sepsis with very high white count. For now, we will continue to follow. I do not really believe this is a case of thrombotic thrombocytopenic purpura given the curr ent picture at this time, we do need to get her baseline kidney function for further clarification. She does not need dialysis right now, but if her kidney function keeps getting worse in the coming da ys, she may need dialysis support. She is agreeable if such need arise. I will not be doing a detai led serological workup today, but if her kidney function does not recover promptly, I will be doing i n the coming days. Job ID: [id number]
[2021-07-08 20:44] LABS: Base Excess ABG -5.7 mEq/L (-9-1.8); HCO3 ABG 23 mmol/L (19-24); Oxygen Saturation ABG 93.5 % (90-95); PCO2 ABG 55 mmHg (35-46); PO2 ABG 71 mmHg (80-95); pH ABG 7.23 (7.35-7.45)
[2021-07-08 20:46] LABS: Allen Test Pos (Pos)
--- NOTE | 2021-07-08 20:48 | XRay Report ---
XR chest 1V portable CLINICAL HISTORY: low o2 COMPARISON STUDY: Chest radiograph July 07, 2021. FINDINGS: Incidental note is made of multiple old bilateral rib fractures. There is no pneumothorax. Cardiomegaly is again noted. Interstitial thickening persists. There are mild bibasilar opacities. IMPRESSION: 1. No change in a pulmonary vascular congestion with suspected mild pulmonary edema. 2. Mild hazy bibasilar opacities. ACT 112: Negative or not required by law. Electronically signed by: Mateo Diaz M.D. 07/08/2021 8:47 PM
[2021-07-08] MEDS ORDERED: LEVALBUTEROL 1.25MG/0.5ML NEB INH STA (21:01)
[2021-07-08] MEDS ORDERED: IPRATROPIUM BROMIDE NEB SOLN 0.02% 2.5 ML VIAL INH STA (21:01)
[2021-07-08] MEDS ORDERED: XOPENEX/ATROVENT 1.25mg/0.5MG NEB COMBO NEB STA (21:01)
[2021-07-08] MEDS: INSULIN ASPART 100 UNITS/ML 3 ML PEN SC SCH (21:56)
[2021-07-08 23:10] LABS: Base Excess ABG -5.6 mEq/L (-9-1.8); HCO3 ABG 23 mmol/L (19-24); Oxygen Saturation ABG 95.2 % (90-95); PCO2 ABG 58 mmHg (35-46); PO2 ABG 83 mmHg (80-95); pH ABG 7.22 (7.35-7.45)
[2021-07-08 23:11] LABS: Allen Test Pos (Pos)
--- NOTE | 2021-07-08 23:22 | Hospitalist Progress Note ---
Date of Service July 08, 2021 Assessment & Plan (1) Bacteremia: (2) Sepsis: Plan: UTI Meet sepsis criteria on admission with elevated WBC and tachycardia Blood cx and urine cx positive for gram negative bacilli Continue IV Cefepime Will repeat blood cx Continue monitor CBC Occipital Subacute infarct MRI showed 2.6 cm focus of restricted diffusion identified in the right occipital lobe consistent with a subacute infarct. Additional subcentimeter foci of restricted diffusion in the right frontal cortex, the right cerebellar hemisphere, and the left parietal white matter are also consistent with acute to subacute infarcts. The distribution suggests an embolic event. carotid u/s showed no sonographic evidence of hemodynamically significant stenosis in the right or left carotid arterial system. Reversed flow in the right vertebral artery in this patient with subclavian steal syndrome. MRA brain showed Unremarkable MR angiogram of the brain. Neuro on board recommended aspirin 81mg daily alone due to pt low platelet count Pt said that she was only taking aspirin once a while Echo no LV wall motion abnormalities with EF 55-60% PT/OT eval Fall precaution Will need to arrange for outpatient ZIo patch Renal Calculi Mild Hydronephrosis CT abd/pelvis showed a 6 mm obstructing stone within the right ureteropelvic junction resulting in mild right hydronephrosis. s/p day#0 cystoscopy, right retrograde pyelogram, right ureteral stent placement with Dr. Hector. Urology on board Continue IV abx cefepime MOHINI Creatinine on admission 5.8 Possible related to renal calculi/hydronephrosis and sepsis Received IVF Nephrology consult Continue monitor BP Abdominal aortic aneurysm. CT showed 4.2 cm infrarenal abdominal aortic aneurysm. Continue outpatient monitor with repeat imaging Keep BP well control Left Adrenal gland nodule CT showed a 2.7 cm indeterminate left adrenal gland nodule Will need outpatient follow up Thrombocytopenia Platelet ct 43 No sign of active bleeding Continue monitor while on aspirin Diabetes Most recent hab1c 7.7 Continue lantus and insulin sliding scale during hospital course diabetic education on board Will do lifestyle modification on discharge Check A1c in 3 months DVT prophylaxis. SCDs Re: Thrombocytopenia DNR Patient requests for her daughter to be updated of progress/plan of care. Ms. Zuri Flor, contact #[phone]. Admission and Anticipated Discharge Date Admission Date: July 08, 2021 Subjective Pt was seen and examined Lying in bed with no acute distress Denies any new complaint Review of Systems Review of Systems: All systems reviewed & are unremarkable except as noted in Subjective Physical Exam Physical Exam: General- No acute distress Head- atraumatic Eyes- PERRL, EOMI, ENT- oropharynx clear Neck- supple, no JVD Lungs- clear to auscultation Heart- regular rhythm; no murmur Abdomen- normal bowel sounds, soft, nontender Extremities- no calf tenderness, +thickened LE skin, B/L LE edema Neuro- alert, oriented x 3; PERRL, EOMI; no facial palsy; no dysarthria Skin- warm & dry Results & Data Results & Data ([facility]) Vital Signs (Past 12 Hours) Vital Signs Temp Pulse Resp BP Pulse Ox 07/08/21 23:04 36.6 C 83 19 154/73 H 95 07/08/21 21:43 80 14 96 07/08/21 19:30 36.6 C 107 H 20 145/83 H 89 L 07/08/21 15:12 36.3 C L 07/08/21 15:01 88 20 118/68 89 L 07/08/21 13:19 36.6 C 88 18 122/62 90 07/08/21 12:40 86 20 127/59 L 92 07/08/21 12:30 89 22 150/82 H 92 07/08/21 12:21 36.2 C L 85 14 140/58 L 95 07/08/21 11:30 36.8 C 89 20 164/89 H 92
[2021-07-09] MEDS ORDERED: CEFEPIME 1,000 MG in SYRINGE 0 ML IV SCH (02:00)
[2021-07-09 05:48] LABS: Hematocrit (blood only) 41.6 % (37-47); Hemoglobin 14.6 g/dL (12.0-16.0); Mean Corpuscular Hemoglobin 28.9 pg (25-34); Mean Corpuscular Hgb Conc 35.1 g/dL (32-36); Mean Corpuscular Volume 82.2 fL (80-100); RDW Coefficient of Variation 16.4 % (11.5-14.5); RDW Standard Deviation 49.4 fL (36.4-46.3); Red Blood Count 5.06 M/uL (4.2-5.4); White Blood Count 24.32 K/uL (4.8-10.8)
[2021-07-09 06:05] LABS: Albumin Level 2.3 gm/dl (3.4-5.0); BUN Creatinine Ratio 31.5 (10-20); Calcium 7.8 mg/dl (8.5-10.1); Creatinine Clr Calc Pharmacy 12.9 ml/min; Est GFR (African American) 10.5 ml/min; Est GFR (Non-African American) 9.1 ml/min; Phosphorus 7.8 mg/dl (2.5-4.9); Potassium 4.9 mmol/L (3.5-5.1)
[2021-07-09 06:32] LABS: Mean Platelet Volume 10.5 fL (7.4-10.4); Platelet Count 52 K/uL (130-400)
[2021-07-09 06:33] LABS: Basophils # (auto) 0.04 K/uL (0-0.2); Basophils % (auto) 0.2 %; Eosinophils # (auto) 0.03 K/uL (0-0.5); Eosinophils % (auto) 0.1 %; Immature Granulocytes # (auto) 0.43 K/uL (0.00-0.02); Immature Granulocytes % (auto) 1.8 %; Lymphocytes # (auto) 2.72 K/uL (1.2-3.4); Lymphocytes % (auto) 11.2 %; Monocytes % (auto) 5.3 %; Neutrophils % (auto) 81.4 %
--- NOTE | 2021-07-09 07:55 | Urology Progress Note ---
Date of Service July 09, 2021 Assessment & Plan (1) Hydronephrosis with renal and ureteral calculus obstruction: (2) MOHINI (acute kidney injury): Plan: 75yo F admitted with sepsis/presumed UTI and MOHINI in the setting of an obstructing 6mm right UPJ stone with hydronephrosis - POD #1 s/p cystoscopy, right retrograde pyelogram, right ureteral stent placement with Dr. Hector. - Afebrile, VSS. - Labs reviewed, Wbc downtrending, Hgb stable, and creatinine 4.47 today (previous 5.81), nephrology following - UCx with more than three types of organisms all high counts; Urine culture from kidney pending - BCx prelim gram negative bacilli - Gomez catheter intact, draining alex urine - Continue supportive care, antibiotic therapy, and close monitoring - Will continue to follow Admission and Anticipated Discharge Date Admission Date: July 08, 2021 Supervising Physician Co-Signing Physician Notes I have seen and examined Ms. Gilbert and agree with the above documentation. She appears hemodynamically stable, less able to focus on conversation. She follows commands for me, but has minimal spontaneous dialogue. From a urologic perspective, she seems to be draining well. Her catheter can likely come out in the next 24 to 48 hours. Urology will arrange follow-up for definitive stone removal. Subjective Pt examined at bedside this AM with Dr. Hector Appears lethargic and restless. Awakens to verbal stimuli, but falls back asleep immediately. Answers some yes/no questions. Denies flank or abdominal pain at present. Gomez catheter intact, draining alex urine. No fevers overnight. On O2 via oxymask. Review of Systems Constitutional: as per Subjective / HPI Gastrointestinal: as per Subjective / HPI Genitourinary: as per Subjective / HPI Neurologic: as per Subjective / HPI Physical Exam Constitutional: + ill appearing and + obese; no acute distress Respiratory: no labored breathing Gastrointestinal (Abdomen): Inspection/Auscultation: abdomen normal to inspection Percussion/Palpation: abdomen soft; abdomen nontender and no guarding Skin: No visible rashes or lesions to exposed skin areas Neurologic: moves all extremities Psychiatric: Awake, answers some yes/no questions Genitourinary: no CVA tenderness Gomez catheter intact, draining alex urine Results & Data ([facility]) Vital Signs (Past 12 Hours) Vital Signs Temp Pulse Pulse Resp BP Pulse Ox 07/09/21 04:14 36.6 C 89 16 110/60 92 07/09/21 00:00 85 07/08/21 23:04 36.6 C 83 19 154/73 H 95 07/08/21 22:15 87 24 93 07/08/21 21:43 80 14 96 PG Care Time/CCT Total # of Minutes Spent Total Time Spent with Patient: Total time spent is greater than 50% in coordination of care (as documented) at patient's floor/unit and/or counseling patient: Coding Level of Care Code 89408 Subseq Hosp Care Lvl 2 Diagnoses Hydronephrosis with renal and ureteral calculus obstruction N13.2 MOHINI (acute kidney injury) N17.9
[2021-07-09] MEDS: INSULIN ASPART 100 UNITS/ML 3 ML PEN SC SCH ×4 (08:15→20:29)
[2021-07-09] MEDS: OXYBUTYNIN CHLORIDE XL 5 MG TABCR PO SCH (08:16)
[2021-07-09] MEDS: CLOPIDOGREL BISULFATE 75 MG TAB PO SCH (08:25)
[2021-07-09] MEDS: ATORVASTATIN 20 MG TAB PO SCH (08:25)
[2021-07-09] MEDS: ASPIRIN 81 MG ECTAB PO SCH (08:25)
[2021-07-09] MEDS: TAMSULOSIN HCL 0.4 MG CAP PO SCH (08:25)
[2021-07-09] MEDS ORDERED: INSULIN GLARGINE SOLOSTAR 100 UNITS/ML 3 ML PEN SC SCH (09:00)
--- NOTE | 2021-07-09 11:13 | Nephrology Progress Note ---
Date of Service July 09, 2021 Assessment & Plan Admission and Anticipated Discharge Date Admission Date: July 08, 2021 Subjective She had More urine. labs better. She seems confused. PHYSICAL EXAMINATION: HEENT: Mucous membrane is dry and crusted and very dry tongue.. NECK: Supple, short, obese neck, so cannot assess JVD. NEUROLOGIC: She is awake and alert and was able to answer questions, but her speech is quite slow. CHEST: Bilateral decreased breath sound. Limited quality exam. CARDIOVASCULAR: S1 and S2, very tachycardic at the time of my examination, in fact, her heart rate was 170, but regular. Soft systolic murmur. ABDOMEN: Soft, nontender, obese. EXTREMITIES: Show 1+ edema bilaterally. LABORATORY TEST: Creat down to 4 range. BUn still high. BC and UC--Gram neg bacilli ASSESSMENT AND PLAN: A 75-year-old female who was admitted with extreme weakness, especially of the right leg. She was found to have multiple problems on detailed workup includin. Acute renal failure for which I have been consulted. 2. Acute versus subacute stroke. 3. Kidney stone with obstruction in the right side with right hydronephrosis. 4. Urosepsis with systemic inflammatory response syndrome---BC and UC--Gram neg bacilli Acute renal failure: At this point, I have to assume this is most likely acute tubular necrosis in the setting of Bacteremia/UTI/Sepsis with contribution from obstructive uropathy with mild right hydronephrosis. Further renal recovery in the coming days will be able to explain this better. Creat did come down nicely and extra urine output so good sign. Her platelet count is low, but this is in the setting of sepsis with very high white count. For now, we will continue to follow. BUn still high but lot of time they lag creat recovery. Dry crusted lips and tongue--will stop Oxybutynin as it Causes Dry mouth and tongue Results & Data ([facility]) Vital Signs (Past 12 Hours) Vital Signs Temp Pulse Pulse Resp BP Pulse Ox 07/09/21 04:14 36.6 C 89 16 110/60 92 07/09/21 00:00 85
--- NOTE | 2021-07-09 12:03 | Electrocardiogram Report ---
Test Reason : Blood Pressure : / mmHG Vent. Rate : 095 BPM Atrial Rate : 095 BPM P-R Int : 168 ms QRS Dur : 086 ms QT Int : 352 ms P-R-T Axes : 058 -35 082 degrees QTc Int : 442 ms Poor data quality, interpretation may be adversely affected Normal sinus rhythm Left axis deviation Septal infarct , age undetermined Possible Lateral infarct , age undetermined Abnormal ECG No previous ECGs available Confirmed by Tommy Ponce ([id number]) on 07/09/2021 12:03:08 PM Referred By: REFERRED SELF Confirmed By:Tommy Ponce
[2021-07-09] MEDS: CEFEPIME 1,000 MG in SYRINGE 0 ML IV SCH (13:03)
--- NOTE | 2021-07-09 19:16 | Hospitalist Progress Note ---
Date of Service July 09, 2021 Assessment & Plan (1) Bacteremia: (2) Sepsis: Plan: UTI Meet sepsis criteria on admission with elevated WBC and tachycardia Blood cx and urine cx positive for gram negative bacilli Continue IV Cefepime Repeat blood cx pending WBC trending down to 24K Continue monitor CBC Occipital Subacute infarct MRI showed 2.6 cm focus of restricted diffusion identified in the right occipital lobe consistent with a subacute infarct. Additional subcentimeter foci of restricted diffusion in the right frontal cortex, the right cerebellar hemisphere, and the left parietal white matter are also consistent with acute to subacute infarcts. The distribution suggests an embolic event. carotid u/s showed no sonographic evidence of hemodynamically significant stenosis in the right or left carotid arterial system. Reversed flow in the rig ht vertebral artery in this patient with subclavian steal syndrome. MRA brain showed Unremarkable MR angiogram of the brain. Neuro on board recommended aspirin 81mg daily alone due to pt low platelet count Pt said that she was only taking aspirin once a while Echo no LV wall motion abnormalities with EF 55-60% PT/OT eval Fall precaution Will need to arrange for outpatient ZIo patch Mental status seems to worsening today Neuro recommended for an EEG We will consider to get a CT head Renal Calculi Mild Hydronephrosis CT abd/pelvis showed a 6 mm obstructing stone within the right ureteropelvic junction resulting in mild right hydronephrosis. s/p day#0 cystoscopy, right retrograde pyelogram, right ureteral stent placement with Dr. Hector. Urology on board Continue IV abx cefepime MOHINI Creatinine on admission 5.8 Possible related to renal calculi/hydronephrosis and sepsis Received IVF Nephrology on board Creatinine trending down at 4.4 today Oxybutynin discontinued Continue monitor BP Abdominal aortic aneurysm. CT showed 4.2 cm infrarenal abdominal aortic aneurysm. Continue outpatient monitor with repeat imaging Keep BP well control Left Adrenal gland nodule CT showed a 2.7 cm indeterminate left adrenal gland nodule Will need outpatient follow up Thrombocytopenia Platelet ct 52 today No sign of active bleeding Continue monitor while on aspirin Diabetes Most recent hab1c 7.7 Continue lantus and insulin sliding scale during hospital course diabetic education on board Will do lifestyle modification on discharge Check A1c in 3 months DVT prophylaxis. SCDs Re: Thrombocytopenia DNR Patient requests for her daughter to be updated of progress/plan of care. Zuri Basia, contact #[phone]. Admission and Anticipated Discharge Date Admission Date: July 08, 2021 Subjective Pt was seen and examined Lying in bed with no acute distress Pt is sleepy today and does not want to keep the oxygen on her face Denies any new complaint Review of Systems Review of Systems: All systems reviewed & are unremarkable except as noted in Subjective Physical Exam Physical Exam: General- No acute distress Head- atraumatic Eyes- PERRL, EOMI, ENT- oropharynx clear Neck- supple, no JVD Lungs- clear to auscultation Heart- regular rhythm; no murmur Abdomen- normal bowel sounds, soft, nontender Extremities- no calf tenderness, +thickened LE skin, B/L LE edema Neuro- alert, oriented x 3; PERRL, EOMI; no facial palsy; no dysarthria Skin- warm & dry Results & Data Results & Data ([facility]) Vital Signs (Past 12 Hours) Vital Signs Temp Pulse Resp BP Pulse Ox 07/09/21 16:00 36.6 C 87 19 152/83 H 90 07/09/21 14:00 92 H 17 121/55 L 91 07/09/21 12:00 36.6 C 91 H 16 07/09/21 11:13 88 22 93 07/09/21 10:00 87 17 97 07/09/21 08:00 36.7 C 24 90
--- NOTE | 2021-07-09 20:21 | Progress Notes ---
NEUROLOGY PROGRESS NOTE DATE OF SERVICE: 07/09/2021 CHIEF COMPLAINT: Stroke, weakness, encephalopathy. SUBJECTIVE: The patient was seen and examined this afternoon. The patient has high-flow nonrebreather mask on, although it is down around her chin. The patient continues to remove the rebreather. She is not very responsive, although does open her eyes to voice; however, not following simple commands. She is moving all 4 extremities. No acute events noted per discussion with nurse overnight. OBJECTIVE: VITAL SIGNS: Blood pressure 110/60, pulse is 88, respiratory rate 22, temperature is 36.6 degrees Celsius, oxygen saturation is 93% on room air. The patient is awake and appears acutely ill. She is morbidly obese. Has a nonrebreather mask on that she continues to remove. She is moving all 4 extremities. Pupils are symmetric. Extraocular muscles are intact. She has no gaze preference. Tongue is midline, although appears dry. She is not following commands such as touch my finger. She is not responding to simple questions like what is her name or how old are you. She does occasionally utter a nonsensical sound. Sensation is intact to noxious stimuli. DIAGNOSTIC TESTING AND LABORATORY VALUES: WBC 24.32, platelet count 52, hemoglobin 14.6. INR is 1.0. Sodium is 137, potassium 4.9, carbon dioxide is 23, BUN is 141, creatinine is 4.47, glucose is 121, calcium 7.8, phosphorus 7.8. Ammonia is elevated at 37.8, albumin 2.3. Blood cultures are pending. Urinalysis showed gram-negative bacilli. Chest x-ray showed no change in pulmonary vascular congestion with suspected mild pulmonary edema. ASSESSMENT AND PLAN: A 75-year-old woman with a history of obesity, admitted with urosepsis and acute renal failure as well as found to have multiple embolic-appearing infarcts on MRI of the brain. Since admission, the patient has been aphasic, although mental status has deteriorated. The patient is not following commands and no longer speaking. Level of alertness/consciousness appears to be attenuated or decreased from previous. Differential diagnosis certainly includes a sepsis or hospital-acquired delirium. Previous MRI of the brain showed an acute infarct in the right posterior cerebral artery distribution as well as in the right middle cerebral artery and left middle cerebral artery distributions concerning for a cardioembolic event. Given the change in mentation, may need to reconsider MRI of the brain if mental status does not improve. For now, I will arrange for a CT head noncontrast as well as an EEG. Otherwise, continue baby aspirin for secondary stroke prevention. Neurology will continue to follow. Dr. Ingrid Harris will be resuming the neurology service tomorrow. Job ID: [id number] MTDD
[2021-07-10] MEDS: CEFEPIME 1,000 MG in SYRINGE 0 ML IV SCH ×2 (00:44→15:06)
--- NOTE | 2021-07-10 06:50 | CT Scan Report ---
CT OF THE HEAD WITHOUT CONTRAST CLINICAL HISTORY: r/o hemorrhagic conversion - worsening aphasia COMPARISON STUDY: Head CT and MRI of the brain July 08, 2021. CT DOSE: 614.27 mGy.cm TECHNIQUE: Helical axial images of the head were obtained without IV contrast. Automated exposure con trol was utilized for the study. A dose lowering technique was utilized adhering to the principles o f ALARA. FINDINGS: No acute intracranial hemorrhage, midline shift or mass effect is present. The 2.7 cm acute to subacute right occipital lobe infarct is similar to prior head CT and MRI. The additional smaller infarcts on MRI are not well-visualized by CT. Ventricular system is stable. Basal cisterns are nair nt. There are no extra axial collections. White matter hypodensities favor small vessel disease. Hypo density adjacent to the right basal ganglia is chronic. An old left frontal lobe infarct is unchanged . Mucous retention cyst within the right maxillary sinus is noted. Bilateral mastoid air cells are pa rtially opacified. There is moderate ethmoid sinus mucosal thickening IMPRESSION: No significant change in the 2.7 cm acute to subacute right occipital lobe infarct since prior head C T and MRI. The smaller infarcts shown on MRI are not well-visualized by CT. No evidence for hemorrhag ic conversion. ACT 112: Negative or not required by law. Electronically signed by: Mateo Diaz M.D. 07/10/2021 6:49 AM
--- NOTE | 2021-07-10 07:42 | Urology Progress Note ---
Date of Service July 10, 2021 Assessment & Plan (1) Hydronephrosis with renal and ureteral calculus obstruction: (2) MOHINI (acute kidney injury): Plan: 75yo F admitted with sepsis/presumed UTI and MOHINI in the setting of an obstructing 6mm right UPJ stone with hydronephrosis - POD #2 s/p cystoscopy, right retrograde pyelogram, right ureteral stent placement with Dr. Hector. - Afebrile, VSS. - Labs reviewed- Wbc downtrending, Hgb stable, Cr down to 3.15 today (4.47 yesterday) - UCx with more than three types of organisms all high counts; Urine culture from kidney final with E.coli; BCx prelim E.coli, repeat pending -Continues on IV Cefepime, follow cultures - Gomez catheter intact, draining yellow urine - Can likely remove Gomez catheter in the next 24-48 hours - Will arrange outpatient follow-up with urology for definitive stone management - Continue supportive care, antibiotic therapy, and close monitoring - will sign-off now, please reconsult us with additional questions, concerns or changes in patient status. Admission and Anticipated Discharge Date Admission Date: July 08, 2021 Subjective Pt examined at bedside this AM. Awake, resting in bed on arrival. No acute distress. She is [place]. Answers some yes/no questions. Tends to fall asleep quickly, but awakens with verbal stimuli. Denies flank or abdominal pain at present. Gomez catheter intact, draining yellow urine. No fevers overnight. Review of Systems Constitutional: as per Subjective / HPI Gastrointestinal: as per Subjective / HPI Genitourinary: as per Subjective / HPI Neurologic: as per Subjective / HPI Physical Exam Constitutional: + obese; no acute distress Respiratory: no labored breathing Gastrointestinal (Abdomen): Inspection/Auscultation: abdomen normal to inspection Percussion/Palpation: abdomen soft; abdomen nontender and no guarding Skin: No visible rashes or lesions to exposed skin areas Neurologic: moves all extremities Psychiatric: Awake, answers some yes/no questions Genitourinary: no CVA tenderness Gomez catheter intact, draining yellow urine Results & Data ([facility]) Vital Signs (Past 12 Hours) Vital Signs Temp Pulse Pulse Resp BP Pulse Ox 07/10/21 03:45 36.4 C L 90 19 135/72 96 07/10/21 00:00 90 10/21/21 22:43 37.0 C 88 17 143/67 H 98 07/09/21 19:45 36.9 C PG Care Time/CCT Total # of Minutes Spent Total Time Spent with Patient: Total time spent is greater than 50% in coordination of care (as documented) at patient's floor/unit and/or counseling patient: Coding Level of Care Code 40082 Subseq Hosp Care Lvl 2 Diagnoses Hydronephrosis with renal and ureteral calculus obstruction N13.2 MOHINI (acute kidney injury) N17.9
[2021-07-10] MEDS: INSULIN ASPART 100 UNITS/ML 3 ML PEN SC SCH ×4 (08:00→19:59)
--- NOTE | 2021-07-10 09:31 | Nephrology Progress Note ---
Date of Service July 10, 2021 Assessment & Plan Admission and Anticipated Discharge Date Admission Date: July 08, 2021 Subjective Subjective She had More urine. labs today is getting better. She seems confused. PHYSICAL EXAMINATION: HEENT: Mucous membrane is dry and crusted and very dry tongue.. NECK: Supple, short, obese neck, so cannot assess JVD. NEUROLOGIC: She is awake and alert and was able to answer questions, but her speech is quite slow. CHEST: Bilateral decreased breath sound. Limited quality exam. CARDIOVASCULAR: S1 and S2, very tachycardic at the time of my examination, in fact, her heart rate was 170, but regular. Soft systolic murmur. ABDOMEN: Soft, nontender, obese. EXTREMITIES: Show 1+ edema bilaterally with Skin changes Chronic LABORATORY TEST: Creat down to 4 range. todays labs pending.. BC and UC--Gram neg bacilli ASSESSMENT AND PLAN: A 75-year-old female who was admitted with extreme weakness, especially of the right leg. She was found to have multiple problems on detailed workup includin. Acute renal failure for which I have been consulted. 2. Acute versus subacute stroke. 3. Kidney stone with obstruction in the right side with right hydronephrosis. 4. Urosepsis with systemic inflammatory response syndrome---BC and UC--Gram neg bacilli Acute renal failure: acute tubular necrosis in the setting of Bacteremia/UTI/Sepsis with contribution from obstructive uropathy with right hydronephrosis. Further renal recovery in the coming days will be able to explain this better. Creat did come down nicely and extra urine output so good sign. Her platelet count is low, but this is in the setting of sepsis with very high white count. For now, we will continue to follow. BUn still high but lot of time they lag creat recovery. Dry crusted lips and tongue--will stop Oxybutynin as it Causes Dry mouth and tongue. Daily BMP. Results & Data ([facility]) Vital Signs (Past 12 Hours) Vital Signs Temp Pulse Pulse Resp BP Pulse Ox 07/10/21 03:45 36.4 C L 90 19 135/72 96 07/10/21 00:00 90 07/09/21 22:43 37.0 C 88 17 143/67 H 98
[2021-07-10 10:29] LABS: Basophils # (auto) 0.07 K/uL (0-0.2); Basophils % (auto) 0.3 %; Eosinophils # (auto) 0.05 K/uL (0-0.5); Eosinophils % (auto) 0.2 %; Hematocrit (blood only) 42.7 % (37-47); Hemoglobin 14.7 g/dL (12.0-16.0); Immature Granulocytes # (auto) 1.19 K/uL (0.00-0.02); Immature Granulocytes % (auto) 5.5 %; Lymphocytes # (auto) 1.28 K/uL (1.2-3.4); Lymphocytes % (auto) 5.9 %; Mean Corpuscular Hemoglobin 28.9 pg (25-34); Mean Corpuscular Hgb Conc 34.4 g/dL (32-36); Mean Corpuscular Volume 83.9 fL (80-100); Mean Platelet Volume 10.5 fL (7.4-10.4); Monocytes # (auto) 2.33 K/uL (0.11-0.59); Monocytes % (auto) 10.8 %; Neutrophils # (auto) 16.75 K/uL (1.4-6.5); Neutrophils % (auto) 77.3 %; Platelet Count 82 K/uL (130-400); RDW Coefficient of Variation 16.4 % (11.5-14.5); RDW Standard Deviation 50.2 fL (36.4-46.3); Red Blood Count 5.09 M/uL (4.2-5.4); White Blood Count 21.67 K/uL (4.8-10.8)
[2021-07-10 10:30] LABS: BUN Creatinine Ratio 43.5 (10-20); Calcium 7.9 mg/dl (8.5-10.1); Creatinine Clr Calc Pharmacy 18.2 ml/min; Est GFR (African American) 16.1 ml/min; Est GFR (Non-African American) 13.9 ml/min
[2021-07-10 10:39] LABS: Base Excess ABG -3.2 mEq/L (-9-1.8); HCO3 ABG 23 mmol/L (19-24); PCO2 ABG 45 mmHg (35-46); PO2 ABG 68 mmHg (80-95); pH ABG 7.32 (7.35-7.45)
[2021-07-10 10:47] LABS: Allen Test Pos (Pos)
--- NOTE | 2021-07-10 11:59 | Electroencephalogram ---
EEG Procedure Note Date of Service July 10, 2021 Start / End Times Start Time: 09:08 End Time: 09:28 Referring Physician Kerwin Braun, DO History A 75 year old woman with worsening aphasia and decreased responsive w cardio embolic strokes. EEG performed for evaluation of epileptiform activity. Home Medication List Medication Instructions Recorded Confirmed Type atorvastatin 20 mg tablet (Lipitor) 20 mg PO DAILY 07/07/21 07/07/21 History chlorpheniramine-acetaminophen 2 1 tab PO Q6H PRN 07/07/21 07/07/21 History mg-325 mg tablet lisinopril 10 mg tablet (Zestril) 10 mg PO DAILY 07/07/21 07/07/21 History oxybutynin chloride 5 mg 5 mg PO DAILY 07/07/21 07/07/21 History tablet,extended release 24 hr (Ditropan XL) Aspir-81 81 mg PO DAILY 07/08/21 07/08/21 History Inpatient Medication List Aspirin (Aspirin 81 Mg Ectab) [facility] [place] Stop: 08/08/21 08:59 Last Admin: 07/09/21 08:25 Dose: 81 mg Documented by: [id number] Clopidogrel Bisulfate (Clopidogrel Bisulfate 75 Mg Tab) [facility] [place] [place] Stop: 08/08/21 08:59 Last Admin: 07/09/21 08:25 Dose: 75 mg Documented by: [id number] Promethazine HCl 12.5 mg/ (Sodium Chloride) 50.5 mls @ 202 mls/hr IV Q6H PRN PRN Reason: Nausea And Vomiting Stop: 08/07/21 03:34 Last Infusion: 07/08/21 09:12 Dose: 0 mls/hr Documented by: [id number] Admin: 07/08/21 08:57 Dose: 202 mls/hr Documented by: [id number] Cefepime HCl 1,000 mg/ Syringe 11.3 mls @ 5.5 mls/min IV Q12H [facility]; Protocol Stop: 07/19/21 00:59 Last Admin: 07/10/21 00:44 Dose: 5.5 mls/min Documented by: [id number] Admin: 07/09/21 13:03 Dose: 5.5 mls/min Documented by: [id number] Insulin Aspart (Insulin Aspart 100 Units/Ml 3 Ml Pen) [facility] Stop: 08/07/21 20:59 Last Admin: 07/10/21 08:00 Dose: Not Given Documented by: [id number] Cosigned by: [id number] Admin: 07/09/21 20:29 Dose: Not Given Documented by: [id number] Cosigned by: [id number] Admin: 07/09/21 18:02 Dose: Not Given Documented by: [id number] Cosigned by: [id number] Admin: 07/09/21 13:03 Dose: 1 units Documented by: [id number] Cosigned by: [id number] Admin: 07/09/21 08:15 Dose: Not Given Documented by: [id number] Admin: 07/08/21 21:56 Dose: Not Given Documented by: [id number] Tamsulosin HCl (Tamsulosin Hcl 0.4 Mg Cap) 0.4 mg PO QAM [facility] Stop: 08/08/21 08:59 Last Admin: 07/09/21 08:25 Dose: 0.4 mg Documented by: [id number] Discontinued Medications Aspirin (Aspirin 81 Mg Ectab) 81 mg PO NOW STA Stop: 07/08/21 01:49 Last Admin: 07/08/21 02:04 Dose: 81 mg Documented by: [id number] Atorvastatin Calcium (Atorvastatin 20 Mg Tab) 20 mg PO DAILY [facility] Stop: 08/07/21 08:59 Last Admin: 07/09/21 08:25 Dose: 20 mg Documented by: [id number] Admin: 07/08/21 08:57 Dose: Not Given Documented by: [id number] Clopidogrel Bisulfate (Clopidogrel Bisulfate 300 Mg Tab) 300 mg PO NOW STA Stop: 07/08/21 01:49 Last Admin: 07/08/21 02:04 Dose: 300 mg Documented by: [id number] Diatrizoate Meglumine (Diatrizoate Meglumine 30% 100ml Vial) 100 ml INSTIL ONCE ONE Stop: 07/08/21 12:05 Last Admin: 07/08/21 12:05 Dose: 10 ml Documented by: [id number] Ciprofloxacin (Cipro / D5w) 400 mg in 200 mls @ 100 mls/hr IV NOW STA; Protocol Stop: 07/08/21 01:56 Last Infusion: 07/08/21 02:17 Dose: 0 mls/hr Documented by: [id number] Admin: 07/08/21 00:18 Dose: 100 mls/hr Documented by: [id number] Calcium Gluconate () 1,000 mg in 60 mls @ 240 mls/hr IV ONE STA Stop: 07/08/21 01:38 Last Infusion: 07/08/21 02:17 Dose: 0 mls/hr Documented by: [id number] Admin: 07/08/21 02:04 Dose: 240 mls/hr Documented by: [id number] Albumin Human (Albumin 25%) 12.5 gm in 50 mls @ 50 mls/hr IV Q1H [facility] Stop: 07/08/21 03:44 Last Infusion: 07/08/21 05:51 Dose: 0 mls/hr Documented by: [id number] Admin: 07/08/21 04:51 Dose: 50 mls/hr Documented by: [id number] Infusion: 07/08/21 04:50 Dose: 0 mls/hr Documented by: [id number] Admin: 07/08/21 03:50 Dose: 50 mls/hr Documented by: [id number] Cefepime HCl (Maxipime) 2,000 mg in 20 mls @ 5 mls/min IV NOW STA; Protocol Stop: 07/08/21 01:17 Last Admin: 07/08/21 02:04 Dose: 5 mls/min Documented by: [id number] Sodium Chloride (Nss 1000ml) 500 mls @ 999 mls/hr IV .Q31M ONE Stop: 07/08/21 02:42 Last Infusion: 07/08/21 02:45 Dose: 0 mls/hr Documented by: [id number] Admin: 07/08/21 02:14 Dose: 999 mls/hr Documented by: [id number] Sodium Chloride (Nss 1000ml) 1,000 mls @ 125 mls/hr IV .Q8H [facility] Stop: 08/07/21 02:14 Last Infusion: 07/08/21 22:19 Dose: 0 mls/hr Documented by: [id number] Infusion: 07/08/21 21:17 Dose: 0 mls/hr Documented by: [id number] Admin: 07/08/21 19:43 Dose: 125 mls/hr Documented by: [id number] Infusion: 07/08/21 19:43 Dose: 125 mls/hr Documented by: [id number] Admin: 07/08/21 13:28 Dose: 125 mls/hr Documented by: [id number] Infusion: 07/08/21 11:49 Dose: 125 mls/hr Documented by: [id number] Admin: 07/08/21 03:49 Dose: 125 mls/hr Documented by: [id number] Cefepime HCl 1,000 mg/ Syringe 11.3 mls @ 5.5 mls/min IV Q24H [facility]; Protocol Stop: 07/19/21 01:59 Last Admin: 07/09/21 01:21 Dose: 5.5 mls/min Documented by: [id number] Ipratropium Ladson (Ipratropium Ladson Neb Soln 0.02% 2.5 Ml Vial) 0.5 mg INH NOW STA Stop: 07/08/21 21:02 Last Admin: 07/08/21 21:39 Dose: 0.5 mg Documented by: [id number] Levalbuterol HCl (Levalbuterol 1.25mg/0.5ml Neb) 1.25 mg INH NOW STA Stop: 07/08/21 21:02 Last Admin: 07/08/21 21:38 Dose: 1.25 mg Documented by: [id number] Miscellaneous (Patient's Height And/Or Weight Needed) 1 ea N/A ONE STA Stop: 07/08/21 03:50 Last Admin: 07/08/21 04:51 Dose: 1 ea Documented by: [id number] Ondansetron HCl (Ondansetron Inj 2 Mg/Ml 2 Ml Vial) Confirm Administered Dose 4 mg .ROUTE .STK-MED ONE Stop: 07/08/21 08:44 Last Admin: 07/08/21 08:57 Dose: Not Given Documented by: [id number] Ondansetron HCl (Ondansetron Inj 2 Mg/Ml 2 Ml Vial) 4 mg IV ONCE PRN PRN Reason: PACU Use Only-Nausea/Vomiting Stop: 07/08/21 16:00 Last Admin: 07/08/21 13:10 Dose: 4 mg Documented by: [id number] Ondansetron HCl (Ondansetron Inj 2 Mg/Ml 2 Ml Vial) Confirm Administered Dose 4 mg .ROUTE .STK-MED ONE Stop: 07/08/21 13:10 Last Admin: 07/08/21 13:10 Dose: Not Given Documented by: [id number] Oxybutynin Chloride (Oxybutynin Chloride Xl 5 Mg Tabcr) 5 mg PO DAILY [facility] Stop: 08/07/21 08:59 Last Admin: 07/09/21 08:16 Dose: Not Given Documented by: [id number] Admin: 07/08/21 08:57 Dose: Not Given Documented by: [id number] Tamsulosin HCl (Tamsulosin Hcl 0.4 Mg Cap) 0.4 mg PO NOW STA Stop: 07/08/21 01:25 Last Admin: 07/08/21 02:04 Dose: 0.4 mg Documented by: [id number] Description This is a 21 electrode EEG with a single channel dedicated to limited EKG. The electrodes were placed in accordance with the International 10-20 system. REPORT: At the onset of the EEG the patient is in an altered mental state. The background is disorganized. There is a loss of the normal anterior to posterior gradient. The posterior dominant rhythm is not seen. Instead the background predominantly consists of 3-4 Hz delta activity with some intermixed superimposed faster frequencies. There is intermittent electrode and myogenic artifact seen with patient movement. No stage 2 sleep transients are seen. No epileptiform discharges are Recorded. Interpretation IMPRESSION: This is an abnormal routine EEG in a patient with altered mentation due to moderate to severe generalized background slowing suggestive of a nonspecific encephalopathy. No electrographic seizures or epileptiform activity is recorded.
[2021-07-10] MEDS ORDERED: cefTRIAXone SODIUM 2,000 MG in DEXTROSE 5% 50 ML IV SCH (15:00)
--- NOTE | 2021-07-10 15:32 | Neurology Progress Note ---
Date of Service July 10, 2021 Assessment & Plan (1) CVA (cerebral vascular accident): Plan: 1. optimize HTN HLD, DM LDL <70 2. aspirin 81 mg daily or switch to plavix 75 mg only due to plt count- likely not compliant to meds- aspirin 81 mg for now- will defer to cardiology if anticoag is needed. may need to wait to start due to possible hemorrhagic conversion risk 3. PT/OT speech for discharge needs 4. TTE - no ASD 5. multiple infarct will need ZIO as outpatient if no irregular heart rate is seen in hospital or any other source found 6. urology - stent placed and now on antibiotics 7. will need placement for rehab and nursing check at home for safety and may need further supervision at home follow up with neurology 4-6 weeks after discharge from hospital Admission and Anticipated Discharge Date Admission Date: July 08, 2021 Supervising Physician Co-Signing Physician Notes I have seen and discussed above patient with Dr Ingrid Harris, neurology. Patient is seen and examined discussed case with Dr. Plummer. 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 Yesterday the patient was sleepier a CT of the head performed today shows no hemorrhagic transformation and no new cerebral infarction. EEG did not show any evidence of seizure although was diffusely slow. Apparently today the patient has had some atrial fibrillation. The patient is awake and alert able to state name and follows some simple co mmands. She denies a headache she is able to name. No obvious field cut there is normal extraocular motility and facial symmetry. Upper and lower extremity strength is symmetric. Impression presumed cardioembolic infarction the right [employer] SERVICE CONSULTANT infarct is rather large and follow-up CT does not show any hemorrhagic transformation. Patient appears improved compared to yesterday. No evidence of seizure. If possible would recommend holding anticoagulation for a week repeating CT of the head and provided the stroke is not larger or hemorrhagic then okay to begin anticoagulants. Will sign off. Ingrid Matias Mercedes is a 75 year old female who has a PMH aortic stenosis, HLD, hyponatremia, thrombcytopenia, CHF, MOHINI morbid obesity, smoker, hypoxia who presents [facility] 07/07/2021 for weakness. She is not sure when her symptoms began but many weeks to months ago. She reports a mild difficulty breathing. She reports increased swelling in her lower extremities. She is so weak that she could not get up to use the restroom. Yesterday she had a change in MS and a repeat CT and EEG were done. She is now more alert answer appropriately one word answers. Nursing report run of afib and then NSR. Denies pain, SOB, CP. Review of Systems Review of Systems: All systems reviewed & are unremarkable except as noted in HPI & below Physical Exam Physical Exam: Physical Exam: Constitutional: appearance ill appearing obese pleasant cooperative, [place] Ears, Nose, Mouth and Throat: mucous membranes moist, no injection and skin normal, eyes normal Cardiovascular: systolic murmer Respiratory: normal respiratory effort Musculoskeletal: LE bilaterally skin puckering bilaterally to midshin Skin: no stigmata of neurocutaneous disease noted and normal and intact Eyes: extraocular muscles intact (EOMI) and pupils equal, round and reactive to light (PERRL) NEUROLOGIC EXAMINATION: Mental status: Alert and interactive Oriented to person Speech clear but hesitant, know pen write with it, glasses see with them, thumb Cranial Nerves smile eye brow raise symmetric Sensory: light and cool touch Gait/Stance: Posture lying in bed Strength: hand rehabilitation program manager bicep triceps 4+/5, hip flex left 4+/5, right 4/5 Results & Data ([facility]) Vital Signs (Past 12 Hours) Vital Signs Temp Pulse Resp BP Pulse Ox 07/10/21 11:06 37.0 C 88 22 143/69 H 96 07/10/21 03:45 36.4 C L 90 19 135/72 96 Diagnostic Findings EEG- abnormal routine EEG in a patient with altered mentation due to moderate to severe generalized background slowing suggestive of a nonspecific encephalopathy. No electrographic seizures or epileptiform activity is recorded. CT head-No significant change in the 2.7 cm acute to subacute right occipital lobe infarct since prior head CT and MRI. The smaller infarcts shown on MRI are not well-visualized by CT. No evidence for hemorrhagic conversion.
[2021-07-10] MEDS: CLOPIDOGREL BISULFATE 75 MG TAB PO SCH (15:55)
[2021-07-10] MEDS: ASPIRIN 81 MG ECTAB PO SCH (15:55)
[2021-07-10] MEDS: ATORVASTATIN 40 MG TAB PO SCH (15:55)
[2021-07-10] MEDS: TAMSULOSIN HCL 0.4 MG CAP PO SCH (15:55)
[2021-07-10] MEDS ORDERED: METOPROLOL TARTRATE 1 MG/ML VIAL IV STA ×2 (17:09→21:30)
[2021-07-10 18:23] LABS: Potassium 5.1 mmol/L (3.5-5.1)
[2021-07-10 18:24] LABS: Magnesium 2.5 mg/dl (1.8-2.4)
[2021-07-10] MEDS ORDERED: dilTIAZem HCl 5 MG/ML 5 ML VIAL IV STA (19:24)
[2021-07-10] MEDS ORDERED: METOPROLOL TARTRATE 25 MG TAB PO SCH ×2 (19:25→21:00)
--- NOTE | 2021-07-10 20:22 | Hospitalist Progress Note ---
Date of Service July 10, 2021 Assessment & Plan (1) Bacteremia: (2) Sepsis: Plan: UTI Meet sepsis criteria on admission with elevated WBC and tachycardia currently on IV Cefepime, will transition to Rocephin Repeat blood cx no growth WBC trending down to 21K Continue monitor CBC Occipital Subacute infarct MRI showed 2.6 cm focus of restricted diffusion identified in the right occipital lobe consistent with a subacute infarct. Additional subcentimeter fo ci of restricted diffusion in the right frontal cortex, the right cerebellar hemisphere, and the left parietal white matter are also consistent with acute to subacute infarcts. The distribution suggests an embolic event. carotid u/s showed no sonographic evidence of hemodynamically significant stenosis in the right or left carotid arterial system. Reversed flow in the right vertebral artery in this patient with subclavian steal syndrome. MRA brain showed Unremarkable MR angiogram of the brain. Neuro on board recommended aspirin 81mg daily alone due to pt low platelet count Pt said that she was only taking aspirin once a while Echo no LV wall motion abnormalities with EF 55-60% PT/OT eval Fall precaution Will need to arrange for outpatient ZIo patch Mental status seems to worsening today EEG showed eo electrographic seizures or epileptiform activity is recorded. AFIB with RVR Mostly due to acute illness Will consult cardiology Will hold on heparin drip due to recent CVA due to risk of intracranial hemorrhage and recent urology procedure Will start on Metoprolol Will consider to start on IV cardizem drip if HR not control Continue monitor closely Renal Calculi Mild Hydronephrosis CT abd/pelvis showed a 6 mm obstructing stone within the right ureteropelvic junction resulting in mild right hydronephrosis. s/p day#0 cystoscopy, right retrograde pyelogram, right ureteral stent placement with Dr. Hector. Urology on board On IV abx cefepime, will transition to Ceftriaxone MOHINI Creatinine on admission 5.8 Possible related to renal calculi/hydronephrosis and sepsis Received IVF Nephrology on board Creatinine trending down at 3.15 today Oxybutynin discontinued Continue monitor BP Abdominal aortic aneurysm. CT showed 4.2 cm infrarenal abdominal aortic aneurysm. Continue outpatient monitor with repeat imaging Keep BP well control Left Adrenal gland nodule CT showed a 2.7 cm indeterminate left adrenal gland nodule Will need outpatient follow up Thrombocytopenia Platelet ct 82K today No sign of active bleeding Continue monitor while on aspirin Diabetes Most recent hab1c 7.7 Continue lantus and insulin sliding scale during hospital course diabetic education on board Will do lifestyle modification on discharge Check A1c in 3 months DVT prophylaxis. SCDs Re: Thrombocytopenia Will consider to add subq heparin once platelet improves DNR Patient requests for her daughter to be updated of progress/plan of care. Ms. Zuri Flor, contact #[phone]. Admission and Anticipated Discharge Date Admission Date: July 08, 2021 Subjective Pt was seen and examined for follow up Lying in bed with no acute distress Patient is more awake today and able to follow commands Denies any new complaint Review of Systems Review of Systems: All systems reviewed & are unremarkable except as noted in Subjective Physical Exam Physical Exam: General- No acute distress Head- atraumatic Eyes- PERRL, EOMI, ENT- oropharynx clear Neck- supple, no JVD Lungs- clear to auscultation Heart- regular rhythm; no murmur Abdomen- normal bowel sounds, soft, nontender Extremities- no calf tenderness, +thickened LE skin, B/L LE edema Neuro- alert, oriented x 3; PERRL, EOMI; no facial palsy; no dysarthria Skin- warm & dry Results & Data Results & Data ([facility]) Vital Signs (Past 12 Hours) Vital Signs Temp Pulse Pulse Resp BP BP Pulse Ox 07/10/21 19:30 36.5 C 122 H 15 148/103 H 93 07/10/21 17:20 150 H 124/74 07/10/21 11:06 37.0 C 88 22 143/69 H 96
[2021-07-10] MEDS ORDERED: METOPROLOL TARTRATE 1 MG/ML VIAL IV PRN (20:44)
[2021-07-11] MEDS: METOPROLOL TARTRATE 1 MG/ML VIAL IV SCH ×2 (05:02→13:34)
[2021-07-11 05:39] LABS: Hematocrit (blood only) 45.2 % (37-47); Hemoglobin 15.2 g/dL (12.0-16.0); Mean Corpuscular Hemoglobin 28.5 pg (25-34); Mean Corpuscular Hgb Conc 33.6 g/dL (32-36); Mean Corpuscular Volume 84.8 fL (80-100); Mean Platelet Volume 9.9 fL (7.4-10.4); Platelet Count 118 K/uL (130-400); RDW Standard Deviation 49.9 fL (36.4-46.3); Red Blood Count 5.33 M/uL (4.2-5.4); White Blood Count 23.09 K/uL (4.8-10.8)
[2021-07-11 05:57] LABS: Albumin Level 2.4 gm/dl (3.4-5.0); Bilirubin Direct 0.5 mg/dl (0-0.2); Calcium 8.3 mg/dl (8.5-10.1); Creatinine Clr Calc Pharmacy 24.4 ml/min; Est GFR (African American) 23.4 ml/min; Est GFR (Non-African American) 20.2 ml/min; Potassium 4.9 mmol/L (3.5-5.1)
[2021-07-11 05:59] LABS: Bilirubin,Total 1.3 mg/dl (0.2-1); Total Protein 6.6 gm/dl (6.4-8.2)
[2021-07-11] MEDS ORDERED: METOPROLOL TARTRATE 1 MG/ML VIAL IV SCH (06:00)
[2021-07-11] MEDS: INSULIN ASPART 100 UNITS/ML 3 ML PEN SC SCH ×4 (09:25→20:32)
[2021-07-11] MEDS: CLOPIDOGREL BISULFATE 75 MG TAB PO SCH (09:26)
[2021-07-11] MEDS: ASPIRIN 81 MG ECTAB PO SCH (09:26)
[2021-07-11] MEDS: TAMSULOSIN HCL 0.4 MG CAP PO SCH (09:26)
[2021-07-11] MEDS: ATORVASTATIN 40 MG TAB PO SCH (09:27)
--- NOTE | 2021-07-11 11:55 | Cardiology Consultation ---
Date of Consultation July 11, 2021 Assessment & Plan (1) New onset a-fib: (2) Bacteremia: (3) Sepsis: (4) CVA (cerebral vascular accident): (5) Aortic stenosis: (6) Dyslipidemia: (7) Hyponatremia: (8) Thrombocytopenia: (9) MOHINI (acute kidney injury): (10) Smoker: (11) Hypoxia: (12) Mitral stenosis: Patient lapsed into atrial fibrillation in the setting of severe sepsis and spontaneously converted to normal sinus rhythm with a dose of IV metoprolol. Anticoagulation has been held given her recent CVA and surgery and I agree with this. She should be started on metoprolol succinate 25 mg p.o. twice daily She does carry history of mitral stenosis so DOAC therapy is contraindicated Decision on long-term anticoagulation with Coumadin will be made prior to discharge. History of Present Illness Reason for Consultation: afib with rvr Requesting Physician: Dr. Lambert Attending Physician: Carli Lambert MD History of Present Illness Ms. Gilbert is a 75-year-old medically complex woman who was initially admitted to [facility] on 07/08/2021 with severe sepsis. She has been treated appropriately in the ICU and responding well. Late in the evening of 07/10/2021 she relapsed into atrial fibrillation with rapid ventricular response and was given a dose of IV metoprolol. She spontaneously converted to normal sinus rhythm without further arrhythmias overnight. Currently, she is quite confused and not able to contribute to the examination. History obtained through review of medical records and discussed with nursing. Allergies Allergy/AdvReac Type Severity Reaction Status Date / Time ampicillin Allergy Unknown . Verified 07/07/21 21:43 erythromycin base Allergy Unknown . Verified 07/07/21 21:43 tetracycline Allergy Unknown . Verified 07/07/21 21:43 Home Medications Medication Instructions Recorded Confirmed Type atorvastatin 20 mg tablet (Lipitor) 20 mg PO DAILY 07/07/21 07/07/21 History chlorpheniramine-acetaminophen 2 1 tab PO Q6H PRN 07/07/21 07/07/21 History mg-325 mg tablet lisinopril 10 mg tablet (Zestril) 10 mg PO DAILY 07/07/21 07/07/21 History oxybutynin chloride 5 mg 5 mg PO DAILY 07/07/21 07/07/21 History tablet,extended release 24 hr (Ditropan XL) Aspir-81 81 mg PO DAILY 07/08/21 07/08/21 History Patient History Medical History MOHINI (acute kidney injury) Aortic stenosis CHF (congestive heart failure) Dyslipidemia Hyponatremia Morbid obesity Smoker Stress incontinence Thrombocytopenia Surgical History H/O hysterectomy with oophorectomy History of appendectomy Social History Smoking Status: Current every day smoker Second Hand Exposure: No; Do You Dip or Chew Tobacco: No; Tobacco Cessation Education Requested by Patient: No Hx Alcohol Use: No Hx Substance Use: No Communication Ability: Unable Electrocardiogram Technician Required: No Beliefs That Will Affect Care: None marital status: Current Living Situation: Alone Other Information That Helps Us Care for You: No Feels Safe at Home: Yes Safety Concerns: Feels Safe At This Time Assistive Devices: None Results & Data ([facility]) Vital Signs (Past 12 Hours) Vital Signs Temp Pulse Pulse Resp BP BP Pulse Ox 07/11/21 10:07 86 166/81 H 07/11/21 07:49 86 18 179/90 H 94 07/11/21 05:02 87 172/94 H 07/11/21 04:30 87 19 172/94 H 07/11/21 04:15 86 21 94 07/11/21 04:00 36.9 C 88 18 07/11/21 03:45 88 21 96 07/11/21 03:30 90 22 84 L 07/11/21 03:15 88 19 94 07/11/21 03:00 87 94 07/11/21 02:45 88 92 07/11/21 02:30 87 23 153/74 H 94 07/11/21 02:15 88 22 90 07/11/21 02:00 88 07/11/21 01:45 84 91 07/11/21 01:30 84 18 92 07/11/21 01:15 85 23 96 07/11/21 01:00 85 19 92 07/11/21 00:45 83 20 95 07/11/21 00:30 84 20 159/85 H 07/11/21 00:15 86 21 07/11/21 00:00 84 21 95 10/22/21 23:58 36.6 C
--- NOTE | 2021-07-11 13:33 | Hospitalist Progress Note ---
Date of Service July 11, 2021 Assessment & Plan (1) Bacteremia: (2) Sepsis: Plan: UTI Meet sepsis criteria on admission with elevated WBC and tachycardia currently on IV Cefepime, will transition to Rocephin Repeat blood cx no growth WBC 23K today Continue monitor CBC Occipital Subacute infarct MRI showed 2.6 cm focus of restricted diffusion identified in the right occipital lobe consistent with a subacute infarct. Additional subcentimeter foci of restricted diffusion in the right frontal cortex, the right cerebellar hemisphere, and the left parietal white matter are also consistent with acute to subacute infarcts. The distribution suggests an embolic event. carotid u/s showed no sonographic evidence of hemodynamically significant stenosis in the right or left carotid arterial system. Reversed flow in the right vertebral artery in this patient with subclavian steal syndrome. MRA brain showed Unremarkable MR angiogram of the brain. Neuro on board recommended aspirin 81mg daily alone due to pt low platelet count Pt said that she was only taking aspirin once a while Echo no LV wall motion abnormalities with EF 55-60% PT/OT eval Fall precaution Will need to arrange for outpatient ZIo patch Mental status seems to worsening, and repeat CT head yesterday showed no bleeding EEG showed eo electrographic seizures or epileptiform activity is recorded. AFIB with RVR Mostly due to acute illness Converted to NSR last night after Lopressor IV Cardiology on board and started on Metoprolol 25mg BID Will hold on heparin drip due to recent CVA due to risk of intracranial hemorrhage and recent urology procedure Continue monitor closely Renal Calculi Mild Hydronephrosis CT abd/pelvis showed a 6 mm obstructing stone within the right ureteropelvic junction resulting in mild right hydronephrosis. s/p day#0 cystoscopy, right retrograde pyelogram, right ureteral stent placement with Dr. Hector. Urology on board On IV abx cefepime, will transition to Ceftriaxone Continue IV Rocephin MOHINI Creatinine on admission 5.8 Possible related to renal calculi/hydronephrosis and sepsis Received IVF Nephrology on board Creatinine trending down at 2.3 today Oxybutynin discontinued due to dry mouth Continue monitor BP Hematuria Possible related to trauma due to pt confusion and recent urology procedure Plavix discontinued since neuro only recommended aspirin due to low platelet Continue monitor CBC Will consider to d/c elkins Abdominal aortic aneurysm. CT showed 4.2 cm infrarenal abdominal aortic aneurysm. Continue outpatient monitor with repeat imaging Keep BP well control Left Adrenal gland nodule CT showed a 2.7 cm indeterminate left adrenal gland nodule Will need outpatient follow up Thrombocytopenia Platelet continues to improves to 118 today No sign of active bleeding Continue monitor while on aspirin Diabetes Most recent hab1c 7.7 Continue lantus and insulin sliding scale during hospital course diabetic education on board Will do lifestyle modification on discharge Check A1c in 3 months DVT prophylaxis. SCDs Re: Thrombocytopenia Will consider to add subq heparin once platelet improves DNR Patient requests for her daughter to be updated of progress/plan of care. Ms. Zuri Flor, contact #[phone]. Admission and Anticipated Discharge Date Admission Date: July 08, 2021 Subjective Pt was seen and examined for follow up Lying in bed with no acute distress confused She is following minimal commands and only answered what and ok She has not been eating much and pulling her IV access Review of Systems Review of Systems: All systems reviewed & are unremarkable except as noted in Subjective Physical Exam Physical Exam: General- No acute distress, confused Head- atraumatic Eyes- PERRL, EOMI, ENT- oropharynx clear Neck- supple, no JVD Lungs- clear to auscultation Heart- regular rhythm; no murmur Abdomen- normal bowel sounds, soft, nontender Extremities- no calf tenderness, +thickened LE skin, B/L LE edema Neuro- alert, wakes, move all 4 extremities, was able to squeeze my finger, only saying what and OK Skin- warm & dry Results & Data Results & Data ([facility]) Vital Signs (Past 12 Hours) Vital Signs Temp Pulse Pulse Resp BP BP Pulse Ox 07/11/21 10:07 86 166/81 H 07/11/21 07:49 86 18 179/90 H 94 07/11/21 05:02 87 172/94 H 07/11/21 04:30 87 19 172/94 H 07/11/21 04:15 86 21 94 07/11/21 04:00 36.9 C 88 18 07/11/21 03:45 88 21 96 07/11/21 03:30 90 22 84 L 07/11/21 03:15 88 19 94 07/11/21 03:00 87 94 07/11/21 02:45 88 92 07/11/21 02:30 87 23 153/74 H 94 07/11/21 02:15 88 22 90 07/11/21 02:00 88 07/11/21 01:45 84 91 07/11/21 01:30 84 18 92
[2021-07-11] MEDS: cefTRIAXone SODIUM 2,000 MG in DEXTROSE 5% 50 ML IV SCH (13:51)
--- NOTE | 2021-07-11 14:03 | Electrocardiogram Report ---
Test Reason : Blood Pressure : / mmHG Vent. Rate : 150 BPM Atrial Rate : 182 BPM P-R Int : 000 ms QRS Dur : 082 ms QT Int : 294 ms P-R-T Axes : 000 -30 099 degrees QTc Int : 464 ms Atrial fibrillation with rapid ventricular response with premature ventricular or aberrantly conducte d complexes Left axis deviation Abnormal ECG When compared with ECG of 10-JUL-2021 17:01, (unconfirmed) Criteria for Inferior infarct are no longer Present Confirmed by Hussein Nelson ([id number]) on 07/11/2021 2:03:27 PM Referred By: REFERRED SELF Confirmed By:Hussein Nelson
--- NOTE | 2021-07-11 14:03 | Electrocardiogram Report ---
Test Reason : Blood Pressure : / mmHG Vent. Rate : 147 BPM Atrial Rate : 147 BPM P-R Int : 000 ms QRS Dur : 086 ms QT Int : 300 ms P-R-T Axes : 000 -37 084 degrees QTc Int : 469 ms Probable Atrial fibrillation with rapid ventricular response Left axis deviation Inferior infarct , age undetermined Anterior infarct (cited on or before 07-JUL-2021) Abnormal ECG When compared with ECG of 07-JUL-2021 20:48, Significant changes have occurred Confirmed by Hussein Nelson ([id number]) on 07/11/2021 2:03:14 PM Referred By: REFERRED SELF Confirmed By:Hussein Nelson
[2021-07-11] MEDS: METOPROLOL SUCC 25MG EXT REL TAB PO SCH (17:00)
[2021-07-12] MEDS: ATORVASTATIN 40 MG TAB PO SCH (09:54)
[2021-07-12] MEDS: INSULIN ASPART 100 UNITS/ML 3 ML PEN SC SCH ×4 (09:54→23:39)
[2021-07-12] MEDS: ASPIRIN 81 MG ECTAB PO SCH (09:54)
[2021-07-12] MEDS: METOPROLOL SUCC 25MG EXT REL TAB PO SCH (09:55)
[2021-07-12] MEDS: TAMSULOSIN HCL 0.4 MG CAP PO SCH (09:55)
--- NOTE | 2021-07-12 10:51 | Nephrology Progress Note ---
Date of Service July 12, 2021 Assessment & Plan (1) MOHINI (acute kidney injury): Plan: -2/acute tubular necrosis in the setting of Bacteremia/UTI/Sepsis with contrib ution from obstructive uropathy with right hydronephrosis. -. Creatinine and UOP improving. - Mild Hydronephrosis On CT abd/pelvis showed a 6 mm obstructing stone within the right ureteropelvic junction resulting in mild right hydronephrosis. s/p - cystoscopy, right retrograde pyelogram, right ureteral stent placement with Dr. Hector. Urology on board On IV abx cefepime, will transition to Ceftriaxone Continue IV Rocephin. Will need f/u with Nephrology on discharge, (2) CVA (cerebral vascular accident): Plan: As per primary. Admission and Anticipated Discharge Date Admission Date: July 08, 2021 Subjective No acute distress , continues to be confused Poor oral intake, Review of Systems Review of Systems: Unobtainable due to cognitive status Physical Exam Physical Exam: HEENT: Mucous membrane is dry NECK: Supple, short, obese neck, no JVD. NEUROLOGIC: She is awake and alert and was able to answer questions, but her speech is quite slow. CHEST: Bilateral decreased breath sound. Limited quality exam. CARDIOVASCULAR: S1 and S2, very tachycardic at the time of my examination, in fact, her heart rate was 170, but regular. Soft systolic murmur. ABDOMEN: Soft, nontender, obese. EXTREMITIES: Show 1+ edema bilaterally with Skin changes Chronic Results & Data ([facility]) Vital Signs (Past 12 Hours) Vital Signs Temp Pulse Pulse Resp BP BP Pulse Ox 07/12/21 08:16 98 H 20 182/103 H 90 07/12/21 03:00 36.5 C 101 H 20 161/97 H 92 07/11/21 23:49 102 H 07/11/21 23:38 36.4 C L 101 H 18 154/79 H 92 Laboratory Results 07/11/21 05:33 07/11/21 05:33
[2021-07-12] MEDS ORDERED: ACETAMINOPHEN 1000 MG/100 ML IV IV ONE (11:15)
--- NOTE | 2021-07-12 11:17 | Cardiology Progress Note ---
Date of Service July 12, 2021 Assessment & Plan (1) New onset a-fib: (2) Bacteremia: (3) Sepsis: (4) CVA (cerebral vascular accident): (5) Aortic stenosis: (6) Dyslipidemia: (7) Hyponatremia: (8) Thrombocytopenia: (9) MOHINI (acute kidney injury): (10) Smoker: (11) Hypoxia: (12) Mitral stenosis: Plan: Patient lapsed into atrial fibrillation in the setting of severe sepsis and spontaneously converted to normal sinus rhythm with a dose of IV metoprolol. Anticoagulation has been held given her recent CVA and surgery and I agree with this. She does carry history of mitral stenosis so DOAC therapy is contraindicated Decision on long-term anticoagulation with Coumadin will be made prior to discharge. Patient is no longer taking oral medications. We will change metoprolol to 2.5 mg IV every 6 hours We will also start on low-dose IV hydralazine as needed for SBP greater than 150 mmHg. Admission and Anticipated Discharge Date Admission Date: July 08, 2021 Subjective Patient seen and examined, chart reviewed. Remains very confused and agitated. No cardiac events reported overnight. Telemetry reviewed: Normal sinus rhythm/sinus tachycardia without recurrences of atrial fibrillation. Review of Systems Review of Systems: Unobtainable due to cognitive status Physical Exam Physical Exam: General: Awake, alert and oriented x 3. No acute distress. HEENT: Normocephalic, atraumatic. Pupils equal, round and reactive to light and accommodation. Extraocular muscles are intact. Anicteric sclera. Moist mucous membranes. Neck: No JVD. No bruit. Cardiovascular: Regular. Positive S-4. Normal S-1 and S-2. No S-3. No murmurs or rubs. Pulmonary: Clear to auscultation B/L. No rales, rhonchi or wheezing Abdomen: Bowel sounds x 4, soft. No rebound, guarding or tenderness. No organomegaly. Extremities: No clubbing, cyanosis or edema. +2 pedal pulses bilaterally. Skin: Warm and dry. Results & Data ([facility]) Vital Signs (Past 12 Hours) Vital Signs Temp Pulse Pulse Resp BP BP Pulse Ox 07/12/21 08:16 98 H 20 182/103 H 90 07/12/21 03:00 36.5 C 101 H 20 161/97 H 92 07/11/21 23:49 102 H 07/11/21 23:38 36.4 C L 101 H 18 154/79 H 92
[2021-07-12 11:33] LABS: Hematocrit (blood only) 49.3 % (37-47); Hemoglobin 16.5 g/dL (12.0-16.0); Mean Corpuscular Hemoglobin 28.8 pg (25-34); Mean Corpuscular Hgb Conc 33.5 g/dL (32-36); Mean Corpuscular Volume 86.2 fL (80-100); Mean Platelet Volume 10.1 fL (7.4-10.4); Platelet Count 165 K/uL (130-400); RDW Coefficient of Variation 16.1 % (11.5-14.5); RDW Standard Deviation 50.8 fL (36.4-46.3); Red Blood Count 5.72 M/uL (4.2-5.4); White Blood Count 26.64 K/uL (4.8-10.8)
[2021-07-12] MEDS: cefTRIAXone SODIUM 2,000 MG in DEXTROSE 5% 50 ML IV SCH (11:47)
[2021-07-12 12:10] LABS: BUN Creatinine Ratio 53.4 (10-20); Calcium 9.2 mg/dl (8.5-10.1); Creatinine Clr Calc Pharmacy 29.6 ml/min; Est GFR (African American) 30.4 ml/min; Est GFR (Non-African American) 26.2 ml/min; Magnesium 2.3 mg/dl (1.8-2.4); Potassium 4.8 mmol/L (3.5-5.1)
[2021-07-12] MEDS: DEXTROSE 5% 1,000 ML IV SCH (12:43)
[2021-07-12] MEDS ORDERED: hydrALAZINE HCL 20 MG/ML VIAL IV PRN (13:23)
[2021-07-12] MEDS: METOPROLOL TARTRATE 1 MG/ML VIAL IV SCH ×2 (14:37→20:34)
[2021-07-12 15:46] LABS: Base Excess ABG 1.2 mEq/L (-9-1.8); HCO3 ABG 25 mmol/L (19-24); PCO2 ABG 38 mmHg (35-46); PO2 ABG 65 mmHg (80-95); pH ABG 7.44 (7.35-7.45)
[2021-07-12 15:52] LABS: Allen Test Pos (Pos)
[2021-07-12 20:27] LABS: BUN Creatinine Ratio 52.3 (10-20); Creatinine Clr Calc Pharmacy 29.6 ml/min; Est GFR (African American) 30.4 ml/min; Est GFR (Non-African American) 26.2 ml/min
[2021-07-12] MEDS: OLANZapine 10 MG/2.1 ML SDV IM PRN (21:27)
--- NOTE | 2021-07-12 23:02 | Hospitalist Progress Note ---
Date of Service July 12, 2021 Assessment & Plan (1) Bacteremia: (2) Sepsis: Plan: UTI Meet sepsis criteria on admission with elevated WBC and tachycardia currently on IV Cefepime, will transition to Rocephin Repeat blood cx no growth WBC 26K today Continue monitor CBC Continue IV Rocephin daily Occipital Subacute infarct MRI showed 2.6 cm focus of restricted diffusion identified in the right occipital lobe consistent with a subacute infarct. Additional subcentimeter foci of restricted diffusion in the right frontal cortex, the right cerebellar hemisphere, and the left parietal white matter are also consistent with acute to subacute infarcts. The distribution suggests an embolic event. carotid u/s showed no sonographic evidence of hemodynamically significant stenosis in the right or left carotid arterial system. Reversed flow in the right vertebral artery in this patient with subclavian steal syndrome. MRA brain showed Unremarkable MR angiogram of the brain. Neuro on board recommended aspirin 81mg daily alone due to pt low platelet count Pt said that she was only taking aspirin once a while Echo no LV wall motion abnormalities with EF 55-60% PT/OT eval Fall precaution Will need to arrange for outpatient ZIo patch Mental status seems to worsening, and repeat CT head yesterday showed no bleeding EEG showed no electrographic seizures or epileptiform activity is recorded. We will continue to repeat CT head if mental status worsening AFIB with RVR Mostly due to acute illness Converted to NSR last night after Lopressor IV Cardiology on board and started on Metoprolol 25mg BID Will hold on heparin drip due to recent CVA due to risk of intracranial hemorrhage and recent urology procedure Continue monitor closely Hypernatremia Sodium 157 today Case discussed with nephrology recommended to start on D5 water at 75 Continue monitor BMP Renal Calculi Mild Hydronephrosis CT abd/pelvis showed a 6 mm obstructing stone within the right ureteropelvic junction resulting in mild right hydronephrosis. s/p day#0 cystoscopy, right retrograde pyelogram, right ureteral stent placement with Dr. Hector. Urology on board On IV abx cefepime, will transition to Ceftriaxone Continue IV Rocephin MOHINI Creatinine on admission 5.8 Possible related to renal calculi/hydronephrosis and sepsis Received IVF Nephrology on board Creatinine trending down at 1.8 today Oxybutynin discontinued due to dry mouth Continue monitor BP Hematuria Possible related to trauma due to pt confusion and recent urology procedure Plavix discontinued since neuro only recommended aspirin due to low platelet Continue monitor CBC Will consider to d/c elkins Abdominal aortic aneurysm. CT showed 4.2 cm infrarenal abdominal aortic aneurysm. Continue outpatient monitor with repeat imaging Keep BP well control Left Adrenal gland nodule CT showed a 2.7 cm indeterminate left adrenal gland nodule Will need outpatient follow up Thrombocytopenia Platelet continues to improves to 118 today No sign of active bleeding Continue monitor while on aspirin Diabetes Most recent hab1c 7.7 Continue lantus and insulin sliding scale during hospital course diabetic education on board Will do lifestyle modification on discharge Check A1c in 3 months DVT prophylaxis. SCDs Re: Thrombocytopenia Will consider to add subq heparin once platelet improves DNR Patient requests for her daughter to be updated of progress/plan of care. Ms. Zuri Flor, contact #[phone]. Admission and Anticipated Discharge Date Admission Date: July 08, 2021 Subjective Pt was seen and examined for follow up altered mental status Lying in bed with no acute distress confused, restlessness Unable to follow commands She has not been eating much and pulling her IV access Review of Systems Review of Systems: All systems reviewed & are unremarkable except as noted in Subjective Physical Exam Physical Exam: General- No acute distress, confused Head- atraumatic Eyes- PERRL, EOMI, ENT- oropharynx clear Neck- supple, no JVD Lungs- clear to auscultation Heart- regular rhythm; no murmur Abdomen- normal bowel sounds, soft, nontender Extremities- no calf tenderness, +thickened LE skin, B/L LE edema Neuro- alert, wakes, move all 4 extremities, was able to squeeze my finger, only saying what and OK Skin- warm & dry Results & Data Results & Data ([facility]) Vital Signs (Past 12 Hours) Vital Signs Temp Pulse Pulse Resp BP BP BP 07/12/21 20:23 36.4 C L 100 H 18 122/101 H 07/12/21 18:40 142/117 H 07/12/21 16:00 101 H 07/12/21 14:37 101 H 158/117 H 07/12/21 11:47 104 H 182/106 H Pulse Ox 07/12/21 20:23 95 07/12/21 18:40 07/12/21 16:00 07/12/21 14:37 07/12/21 11:47
[2021-07-13] MEDS: METOPROLOL TARTRATE 1 MG/ML VIAL IV SCH ×4 (01:02→19:22)
[2021-07-13] MEDS: DEXTROSE 5% 1,000 ML IV SCH ×3 (01:02→17:49)
[2021-07-13 05:12] LABS: Hematocrit (blood only) 48.3 % (37-47); Mean Corpuscular Hemoglobin 28.6 pg (25-34); Mean Corpuscular Hgb Conc 33.1 g/dL (32-36); Mean Corpuscular Volume 86.3 fL (80-100); Mean Platelet Volume 10.1 fL (7.4-10.4); Platelet Count 185 K/uL (130-400); RDW Standard Deviation 50.7 fL (36.4-46.3)
[2021-07-13] MEDS: INSULIN ASPART 100 UNITS/ML 3 ML PEN SC SCH ×4 (05:31→23:41)
[2021-07-13 05:48] LABS: BUN Creatinine Ratio 49.1 (10-20); Creatinine Clr Calc Pharmacy 28.1 ml/min; Est GFR (African American) 28.8 ml/min; Est GFR (Non-African American) 24.9 ml/min; Potassium 4.4 mmol/L (3.5-5.1)
[2021-07-13] MEDS: OLANZapine 10 MG/2.1 ML SDV IM PRN (05:53)
--- NOTE | 2021-07-13 08:07 | Gastrointestinal Consultation ---
Date of Consultation July 13, 2021 Assessment & Plan (1) Fecal occult blood test positive: (2) Black stool: This is a 75 y/o female admitted with h/o CVA, admitted with urosepsis, MOHINI, mental status changes, subacute occipital infarct. GI consulted for black stool that was FOBT +. She is ill appearing, confused; unable to provide HPI/ROS, therefore history gathered from her chart and speaking with staff. She has factors for UGIB/PUD including acute illness/sepsis, history of ASA use. At present H&H are stable and she's not having any s/s active GIB; her BUN is improved from admission; abd is soft, VSS. - Consider IV PPI in the presence of acute illness/dark stool - Would trend H&H, transfuse PRN - Monitor and document GI output - In the absence of anemia and active GIB, and given her electrolyte derangements, would defer endoscopy at this time - Appreciate primary team mgmt of her co-morbidities Thank you for allowing us to participate in the care of this patient. Please call with any acute changes, questions or concerns. Please see addendum below with additional recommendation from my supervising physician. Supervising Physician Co-Signing Physician Notes The patient this morning. Unfortunately due to her recent stroke she is unable to give any historical information. Please note that she has had no significant drop in her hemoglobin or hematocrit and now has significant hypernatremia. She will likely have a drop in her hemoglobin and hematocrit with volume resuscitation. As she has no chino bleeding I would not recommend endoscopic evaluation at the present time. Perhaps the patient is best served with conservative management using Protonix 40 mg twice daily and avoidance of nonsteroidals if possible. Recomendations: Protonix 40 mg iv bid avoid use of NSAIDs please History of Present Illness Reason for Consultation: Positive FOBT Requesting Physician: Dr. Lambert Attending Physician: Carli Lambert MD History of Present Illness Mercedes Gilbert is 75 y/o female with multiple medical comorbidities including large right CRABBER stroke, DM, HLD, CHF, tobacco use, admitted since 07/08/21, with bacteremia, urosepsis, obstructing R kidney stone s/p ureteral stent, MOHINI. Has had mental status changes, imaging suggestive of subacute occipital infarct, had been on Plavix but now on ASA 81 mg, had a-fib with RVR converted to NSR, has had hypernatremia, tcytopenia. GI consulted for episode of black liquid stool that was FOBT +. HGB remains stable at 16, crit 48%, BUN improved from admission (2/2 MOHINI), creatinine has improved to 1.94, WBC still elevated 27 k. I'm unable to find whether she has had prior endoscopy. No hematemesis, hematochezia per staff. Pt is confused, restless, opens eyes and occasionally says "ok" but does not provide meaningful answers to questions, therefore unable to obtain HPI/ROS. Allergies Allergy/AdvReac Type Severity Reaction Status Date / Time ampicillin Allergy Unknown . Verified 07/07/21 21:43 erythromycin base Allergy Unknown . Verified 07/07/21 21:43 tetracycline Allergy Unknown . Verified 07/07/21 21:43 Home Medications Medication Instructions Recorded Confirmed Type atorvastatin 20 mg tablet (Lipitor) 20 mg PO DAILY 07/07/21 07/07/21 History chlorpheniramine-acetaminophen 2 1 tab PO Q6H PRN 07/07/21 07/07/21 History mg-325 mg tablet lisinopril 10 mg tablet (Zestril) 10 mg PO DAILY 07/07/21 07/07/21 History oxybutynin chloride 5 mg 5 mg PO DAILY 07/07/21 07/07/21 History tablet,extended release 24 hr (Ditropan XL) Aspir-81 81 mg PO DAILY 07/08/21 07/08/21 History Patient History Medical History MOHINI (acute kidney injury) Aortic stenosis CHF (congestive heart failure) Dyslipidemia Hyponatremia Morbid obesity Smoker Stress incontinence Thrombocytopenia Surgical History H/O hysterectomy with oophorectomy History of appendectomy Social History Smoking Status: Current every day smoker Second Hand Exposure: No; Do You Dip or Chew Tobacco: No; Tobacco Cessation Education Requested by Patient: No Hx Alcohol Use: No Hx Substance Use: No Communication Ability: Unable Olive Knocker Required: No Beliefs That Will Affect Care: None marital status: Current Living Situation: Alone Other Information That Helps Us Care for You: No Feels Safe at Home: Yes Safety Concerns: Feels Safe At This Time Assistive Devices: None Review of Systems Review of Systems: Unobtainable due to cognitive status Physical Exam Constitutional: ill appearing; NAD Eyes: sclera anicteric Respiratory: normal respiratory effort, lungs clear to auscultation Cardiovascular: RRR, no murmur, no edema Gastrointestinal (Abdomen): normal bowel sounds, soft, nontender, no hepatosplenomegaly Skin: no rashes, warm and dry Lips have dark/blackened areas/scabs? Psychiatric: lethargic, eyes closed but awakens to voice, at times alert but confused, restless, doesn't provide meaningful answers Results & Data ([facility]) Vital Signs (Past 12 Hours) Vital Signs Temp Pulse Pulse Resp BP BP Pulse Ox 07/13/21 04:55 36.4 C L 91 H 20 127/84 92 07/13/21 00:00 57 L 07/12/21 23:30 36.4 C L 98 H 16 114/84 92 07/12/21 20:23 36.4 C L 100 H 18 122/101 H 95 Laboratory Results 07/13/21 07/13/21 07/13/21 Range/Units 11:40 09:48 05:28 WBC (4.8-10.8) K/uL RBC (4.2-5.4) M/uL Hgb (12.0-16.0) g/dL Hct (37-47) % MCV (80-100) fL MCH (25-34) pg MCHC (32-36) g/dL RDW Std Deviation (36.4-46.3) fL RDW Coeff of Mary Kay (11.5-14.5) % Plt Count (130-400) K/uL MPV (7.4-10.4) fL ABG pH (7.35-7.45) ABG pCO2 (35-46) mmHg ABG pO2 (80-95) mmHg ABG HCO3 (19-24) mmol/L ABG O2 Saturation (90-95) % ABG Base Excess (-9-1.8) mEq/L Gage Test (Pos) Barometric Pressure mm/Hg Oxygen Given Sodium 156 H* (136-145) mmol/L Potassium (3.5-5.1) mmol/L Chloride (98-107) mmol/L Carbon Dioxide (21-32) mmol/L Anion Gap (3-11) BUN (7-18) mg/dl Creatinine (0.6-1.2) mg/dl Est Cr Clr Drug Dosing ml/min Est GFR ( Amer) ml/min Est GFR (Non-Af Amer) ml/min BUN/Creatinine Ratio (10-20) Glucose (70-99) mg/dl POC Glucose 154 H 163 H (70-99) mg/dl Calcium (8.5-10.1) mg/dl Phosphorus (2.5-4.9) mg/dl Magnesium (1.8-2.4) mg/dl Stool Occult Bld Scrn (Negative) 07/13/21 07/13/21 07/12/21 Range/Units 04:59 04:59 23:37 WBC 27.90 H (4.8-10.8) K/uL RBC 5.60 H (4.2-5.4) M/uL Hgb 16.0 (12.0-16.0) g/dL Hct 48.3 H (37-47) % MCV 86.3 (80-100) fL MCH 28.6 (25-34) pg MCHC 33.1 (32-36) g/dL RDW Std Deviation 50.7 H (36.4-46.3) fL RDW Coeff of Mary Kay 16.0 H (11.5-14.5) % Plt Count 185 (130-400) K/uL MPV 10.1 (7.4-10.4) fL ABG pH (7.35-7.45) ABG pCO2 (35-46) mmHg ABG pO2 (80-95) mmHg ABG HCO3 (19-24) mmol/L ABG O2 Saturation (90-95) % ABG Base Excess (-9-1.8) mEq/L Gage Test (Pos) Barometric Pressure mm/Hg Oxygen Given Sodium 157 H* (136-145) mmol/L Potassium 4.4 (3.5-5.1) mmol/L Chloride 124 H (98-107) mmol/L Carbon Dioxide 30 (21-32) mmol/L Anion Gap 3.0 (3-11) BUN 95 H (7-18) mg/dl Creatinine 1.94 H (0.6-1.2) mg/dl Est Cr Clr Drug Dosing 28.1 ml/min Est GFR ( Amer) 28.8 ml/min Est GFR (Non-Af Amer) 24.9 ml/min BUN/Creatinine Ratio 49.1 H (10-20) Glucose 175 H (70-99) mg/dl POC Glucose 178 H (70-99) mg/dl Calcium 9.0 (8.5-10.1) mg/dl Phosphorus (2.5-4.9) mg/dl Magnesium (1.8-2.4) mg/dl Stool Occult Bld Scrn (Negative) 07/12/21 07/12/21 07/12/21 Range/Units 20:46 19:49 17:58 WBC (4.8-10.8) K/uL RBC (4.2-5.4) M/uL Hgb (12.0-16.0) g/dL Hct (37-47) % MCV (80-100) fL MCH (25-34) pg MCHC (32-36) g/dL RDW Std Deviation (36.4-46.3) fL RDW Coeff of Mary Kay (11.5-14.5) % Plt Count (130-400) K/uL MPV (7.4-10.4) fL ABG pH (7.35-7.45) ABG pCO2 (35-46) mmHg ABG pO2 (80-95) mmHg ABG HCO3 (19-24) mmol/L ABG O2 Saturation (90-95) % ABG Base Excess (-9-1.8) mEq/L Gage Test (Pos) Barometric Pressure mm/Hg Oxygen Given Sodium 155 H (136-145) mmol/L Potassium 4.4 (3.5-5.1) mmol/L Chloride 124 H (98-107) mmol/L Carbon Dioxide 28 (21-32) mmol/L Anion Gap 3.0 (3-11) BUN 97 H (7-18) mg/dl Creatinine 1.86 H (0.6-1.2) mg/dl Est Cr Clr Drug Dosing 29.6 ml/min Est GFR ( Amer) 30.4 ml/min Est GFR (Non-Af Amer) 26.2 ml/min BUN/Creatinine Ratio 52.3 H (10-20) Glucose 180 H (70-99) mg/dl POC Glucose 157 H (70-99) mg/dl Calcium 9.0 (8.5-10.1) mg/dl Phosphorus (2.5-4.9) mg/dl Magnesium (1.8-2.4) mg/dl Stool Occult Bld Scrn (Negative) 07/12/21 07/12/21 07/12/21 Range/Units 17:50 15:27 11:53 WBC (4.8-10.8) K/uL RBC (4.2-5.4) M/uL Hgb (12.0-16.0) g/dL Hct (37-47) % MCV (80-100) fL MCH (25-34) pg MCHC (32-36) g/dL RDW Std Deviation (36.4-46.3) fL RDW Coeff of Mary Kay (11.5-14.5) % Plt Count (130-400) K/uL MPV (7.4-10.4) fL ABG pH 7.44 (7.35-7.45) ABG pCO2 38 (35-46) mmHg ABG pO2 65 L (80-95) mmHg ABG HCO3 25 H (19-24) mmol/L ABG O2 Saturation 94.0 (90-95) % ABG Base Excess 1.2 (-9-1.8) mEq/L Gage Test Pos (Pos) Barometric Pressure 733.5 mm/Hg Oxygen Given ROOM AIR Sodium (136-145) mmol/L Potassium (3.5-5.1) mmol/L Chloride (98-107) mmol/L Carbon Dioxide (21-32) mmol/L Anion Gap (3-11) BUN (7-18) mg/dl Creatinine (0.6-1.2) mg/dl Est Cr Clr Drug Dosing ml/min Est GFR ( Amer) ml/min Est GFR (Non-Af Amer) ml/min BUN/Creatinine Ratio (10-20) Glucose (70-99) mg/dl POC Glucose 162 H (70-99) mg/dl Calcium (8.5-10.1) mg/dl Phosphorus (2.5-4.9) mg/dl Magnesium (1.8-2.4) mg/dl Stool Occult Bld Scrn Positive A (Negative) 07/12/21 Range/Units 10:53 WBC (4.8-10.8) K/uL RBC (4.2-5.4) M/uL Hgb (12.0-16.0) g/dL Hct (37-47) % MCV (80-100) fL MCH (25-34) pg MCHC (32-36) g/dL RDW Std Deviation (36.4-46.3) fL RDW Coeff of Mary Kay (11.5-14.5) % Plt Count (130-400) K/uL MPV (7.4-10.4) fL ABG pH (7.35-7.45) ABG pCO2 (35-46) mmHg ABG pO2 (80-95) mmHg ABG HCO3 (19-24) mmol/L ABG O2 Saturation (90-95) % ABG Base Excess (-9-1.8) mEq/L Gage Test (Pos) Barometric Pressure mm/Hg Oxygen Given Sodium 157 H* D (136-145) mmol/L Potassium 4.8 (3.5-5.1) mmol/L Chloride 122 H (98-107) mmol/L Carbon Dioxide 31 (21-32) mmol/L Anion Gap 4.0 (3-11) BUN 99 H (7-18) mg/dl Creatinine 1.86 H D (0.6-1.2) mg/dl Est Cr Clr Drug Dosing 29.6 ml/min Est GFR ( Amer) 30.4 ml/min Est GFR (Non-Af Amer) 26.2 ml/min BUN/Creatinine Ratio 53.4 H (10-20) Glucose 170 H (70-99) mg/dl POC Glucose (70-99) mg/dl Calcium 9.2 (8.5-10.1) mg/dl Phosphorus 3.0 (2.5-4.9) mg/dl Magnesium 2.3 (1.8-2.4) mg/dl Stool Occult Bld Scrn (Negative)
[2021-07-13] MEDS: TAMSULOSIN HCL 0.4 MG CAP PO SCH (08:23)
[2021-07-13] MEDS: ATORVASTATIN 40 MG TAB PO SCH (08:23)
[2021-07-13] MEDS: ASPIRIN 81 MG ECTAB PO SCH (08:23)
--- NOTE | 2021-07-13 09:19 | Cardiology Progress Note ---
Date of Service July 13, 2021 Assessment & Plan (1) New onset a-fib: (2) Bacteremia: (3) Sepsis: (4) CVA (cerebral vascular accident): (5) Aortic stenosis: (6) Dyslipidemia: (7) Hyponatremia: (8) Thrombocytopenia: (9) MOHINI (acute kidney injury): (10) Smoker: (11) Hypoxia: (12) Mitral stenosis: Plan: The patient is to have CT of the brain reviewed by neurology and then decisions made regarding further care. She is maintaining sinus rhythm and I would not have any further recommendations at this time. Admission and Anticipated Discharge Date Admission Date: July 08, 2021 Subjective The patient is unresponsive Review of Systems Review of Systems: Not obtainable Physical Exam Physical Exam: General: Unresponsive, but no acute distress Head: normocephalic, no masses, lesions, tenderness or abnormalities Eyes: conjunctiva are pink and non-injected, sclera clear Neck: supple, no adenopathy, no bruits, normal jugular venous pulse, no hepatojugular reflux Chest: normal shape and normal respiratory effort Lungs: clear to auscultation and percussion Cardiac Exam: - regular rate & rhythm, no murmurs gallops or rubs - normal S1, normal S2 Pulses: 2(+) throughout Abdomen: abdomen soft, non-tender, no abnormal masses and no hepatosplenomegaly Musculoskeletal: no gait disturbance, no joint inflammation, no deforming arthritis Extremities: no edema and no cyanosis Neuro: grossly normal exam Results & Data ([facility]) Vital Signs (Past 12 Hours) Vital Signs Temp Pulse Pulse Resp BP BP Pulse Ox 07/13/21 08:24 91 H 123/91 07/13/21 04:55 36.4 C L 91 H 20 127/84 92 07/13/21 00:00 57 L 07/12/21 23:30 36.4 C L 98 H 16 114/84 92 Laboratory Results Laboratory Results - last 24 hr 07/12/21 07/12/21 07/12/21 10:53 10:53 11:53 WBC 26.64 H RBC 5.72 H Hgb 16.5 H Hct 49.3 H MCV 86.2 MCH 28.8 MCHC 33.5 RDW Std Deviation 50.8 H RDW Coeff of Mary Kay 16.1 H Plt Count 165 MPV 10.1 ABG pH ABG pCO2 ABG pO2 ABG HCO3 ABG O2 Saturation ABG Base Excess Gage Test Barometric Pressure Oxygen Given Sodium 157 H* D Potassium 4.8 Chloride 122 H Carbon Dioxide 31 Anion Gap 4.0 BUN 99 H Creatinine 1.86 H D Est Cr Clr Drug Dosing 29.6 Est GFR ( Amer) 30.4 Est GFR (Non-Af Amer) 26.2 BUN/Creatinine Ratio 53.4 H Glucose 170 H POC Glucose 162 H Calcium 9.2 Phosphorus 3.0 Magnesium 2.3 Stool Occult Bld Scrn 07/12/21 07/12/21 07/12/21 15:27 17:50 17:58 WBC RBC Hgb Hct MCV MCH MCHC RDW Std Deviation RDW Coeff of Mary Kay Plt Count MPV ABG pH 7.44 ABG pCO2 38 ABG pO2 65 L ABG HCO3 25 H ABG O2 Saturation 94.0 ABG Base Excess 1.2 Gage Test Pos Barometric Pressure 733.5 Oxygen Given ROOM AIR Sodium Potassium Chloride Carbon Dioxide Anion Gap BUN Creatinine Est Cr Clr Drug Dosing Est GFR ( Amer) Est GFR (Non-Af Amer) BUN/Creatinine Ratio Glucose POC Glucose 157 H Calcium Phosphorus Magnesium Stool Occult Bld Scrn Positive A 07/12/21 07/12/21 07/12/21 19:49 20:46 23:37 WBC RBC Hgb Hct MCV MCH MCHC RDW Std Deviation RDW Coeff of Mary Kay Plt Count MPV ABG pH ABG pCO2 ABG pO2 ABG HCO3 ABG O2 Saturation ABG Base Excess Gage Test Barometric Pressure Oxygen Given Sodium 155 H Potassium 4.4 Chloride 124 H Carbon Dioxide 28 Anion Gap 3.0 BUN 97 H Creatinine 1.86 H Est Cr Clr Drug Dosing 29.6 Est GFR ( Amer) 30.4 Est GFR (Non-Af Amer) 26.2 BUN/Creatinine Ratio 52.3 H Glucose 180 H POC Glucose 178 H Calcium 9.0 Phosphorus Magnesium Stool Occult Bld Scrn 07/13/21 07/13/21 07/13/21 04:59 04:59 05:28 WBC 27.90 H RBC 5.60 H Hgb 16.0 Hct 48.3 H MCV 86.3 MCH 28.6 MCHC 33.1 RDW Std Deviation 50.7 H RDW Coeff of Mary Kay 16.0 H Plt Count 185 MPV 10.1 ABG pH ABG pCO2 ABG pO2 ABG HCO3 ABG O2 Saturation ABG Base Excess Gage Test Barometric Pressure Oxygen Given Sodium 157 H* Potassium 4.4 Chloride 124 H Carbon Dioxide 30 Anion Gap 3.0 BUN 95 H Creatinine 1.94 H Est Cr Clr Drug Dosing 28.1 Est GFR ( Amer) 28.8 Est GFR (Non-Af Amer) 24.9 BUN/Creatinine Ratio 49.1 H Glucose 175 H POC Glucose 163 H Calcium 9.0 Phosphorus Magnesium Stool Occult Bld Scrn Medications Administered Current Inpatient Medications Acetaminophen (Acetaminophen 325 Mg Tab) 650 mg PO Q4H PRN PRN Reason: Pain or Fever Stop: 08/07/21 03:34 Aspirin (Aspirin 81 Mg Ectab) [facility] Stop: 08/08/21 08:59 Last Admin: 07/13/21 08:23 Dose: Not Given Documented by: Atorvastatin Calcium (Atorvastatin 40 Mg Tab) 40 mg PO DAILY [facility] Stop: 08/09/21 08:59 Last Admin: 07/13/21 08:23 Dose: Not Given Documented by: Clopidogrel Bisulfate (Clopidogrel Bisulfate 75 Mg Tab) 75 mg PO QAM [facility] Stop: 08/08/21 08:59 Last Admin: 07/11/21 09:26 Dose: 75 mg Documented by: Dextrose (Dextrose 50% 50 Ml Syringe) 25 - 50 ml IV UD PRN; Protocol PRN Reason: Hypoglycemia Protocol Stop: 08/07/21 20:11 Glucagon (Glucagon For Inj 1 Mg Vial) 1 mg SQ UD PRN; Protocol PRN Reason: Hypoglycemia Protocol Stop: 08/07/21 20:11 Glucose (Glucose 10 Tabs/Tube) 4 - 8 tabs PO UD PRN; Protocol PRN Reason: Hypoglycemia Protocol Stop: 08/07/21 20:11 Glucose (Glucose 40% Gel 15 Gm Tube) 15 - 30 gm PO UD PRN; Protocol PRN Reason: Hypoglycemia Protocol Stop: 08/07/21 20:11 Hydralazine HCl (Hydralazine Hcl 20 Mg/Ml Vial) 5 mg IV Q8 PRN PRN Reason: Blood Pressure - High Stop: 08/11/21 13:22 Last Admin: 07/12/21 17:24 Dose: 5 mg Documented by: Promethazine HCl 12.5 mg/ (Sodium Chloride) 50.5 mls @ 202 mls/hr IV Q6H PRN PRN Reason: Nausea And Vomiting Stop: 08/07/21 03:34 Last Infusion: 07/08/21 09:12 Dose: Infused Documented by: Ceftriaxone Sodium 2,000 mg/ (Dextrose) 70 mls @ 140 mls/hr IV DAILY@1200 [facility] Stop: 07/24/21 11:59 Last Infusion: 07/12/21 12:49 Dose: Infused Documented by: Dextrose (D5w) 1,000 mls @ 200 mls/hr IV .Q5H [facility] Stop: 08/11/21 12:29 Last Infusion: 07/13/21 05:54 Dose: 100 mls/hr Documented by: Insulin Aspart (Insulin Aspart 100 Units/Ml 3 Ml Pen) 0 units SC Q6 [facility] Stop: 08/11/21 11:59 Last Admin: 07/13/21 05:31 Dose: 1 units Documented by: Ipratropium [place] (Ipratropium [place] Neb Soln 0.02% 2.5 Ml Vial) 0.5 mg INH Q4H PRN PRN Reason: sob/wheezing Stop: 08/07/21 03:34 Levalbuterol HCl (Levalbuterol 1.25mg/0.5ml Neb) 1.25 mg INH Q4H PRN PRN Reason: sob/wheezing Stop: 08/07/21 03:34 Metoprolol Succinate (Metoprolol Succ 25mg Ext Rel Tab) 25 mg PO BID17 [facility] Stop: 08/10/21 16:59 Last Admin: 07/12/21 09:55 Dose: Not Given Documented by: Metoprolol Tartrate (Metoprolol Tartrate 1 Mg/Ml Vial) 2.5 mg IV Q6H [facility] Stop: 08/11/21 13:29 Last Admin: 07/13/21 08:24 Dose: 2.5 mg Documented by: Miscellaneous (Carbohydrates For Hypoglycemia ) 15 - 30 gm PO UD PRN PRN Reason: Hypoglycemia Protocol Stop: 08/07/21 20:11 Olanzapine (Olanzapine 10 Mg/2.1 Ml Sdv) 2.5 mg IM Q4H PRN PRN Reason: Anxiety/Agitation Stop: 08/11/21 20:32 Last Admin: 07/13/21 05:53 Dose: 2.5 mg Documented by: Oxycodone HCl (Oxycodone Hcl Ir 5 Mg Tab (Immediate Release)) 5 mg PO Q4H PRN PRN Reason: Pain Stop: 07/22/21 03:34 Tamsulosin HCl (Tamsulosin Hcl 0.4 Mg Cap) 0.4 mg PO QAM [facility] Stop: 08/08/21 08:59 Last Admin: 07/13/21 08:23 Dose: Not Given Documented by:
--- NOTE | 2021-07-13 09:36 | CT Scan Report ---
CT head/brain wo con CLINICAL HISTORY: 75 years-old Female with ALTERED MENTAL STATUS WORSENING. TECHNIQUE: Multiple axial CT images of the head were obtained without contrast. A dose lowering tech nique was utilized adhering to the principles of ALARA. CT DOSE: 614.27 mGy.cm COMPARISON: Head CT 07/10/2021, brain MRI 07/08/2021 FINDINGS: No acute intracranial hemorrhage, midline shift, intracranial mass, hydrocephalus, or abnormal extra- axial collection. 2.7 cm subacute infarct of the right occipital lobe appears unchanged. Age-related involutional changes. Mild white matter hypodensities suggest chronic microvascular ischemic disease. Small chronic appearing infarct of the left frontal lobe with encephalomalacia. Cerebral vascular ca lcifications. The calvarium is intact. Polypoid mucosal thickening of the right maxillary sinus. Mild to moderate mucosal thickening of the ethmoid air cells. Trace mastoid effusions. Prior right-sided lens repair. IMPRESSION: Unchanged size of the subacute right occipital lobe infarct. No acute intracranial hemor rhage or midline shift. ACT 112: Negative or not required by law. The above report was generated using voice recognition software. It may contain grammatical, syntax o r spelling errors. Electronically signed by: Oscar Tubbs M.D. 07/13/2021 9:35 AM
[2021-07-13] MEDS: PANTOprazole 40 MG in SYRINGE 0 ML IV SCH ×2 (11:00→21:32)
[2021-07-13] MEDS: cefTRIAXone SODIUM 2,000 MG in DEXTROSE 5% 50 ML IV SCH (11:01)
[2021-07-13 13:24] LABS: Hematocrit (blood only) 46.3 % (37-47); Hemoglobin 15.2 g/dL (12.0-16.0)
[2021-07-13 14:03] LABS: Calcium 8.7 mg/dl (8.5-10.1); Creatinine Clr Calc Pharmacy 28.4 ml/min; Est GFR (African American) 29.2 ml/min; Est GFR (Non-African American) 25.2 ml/min; Potassium 4.1 mmol/L (3.5-5.1)
--- NOTE | 2021-07-13 18:56 | Nephrology Progress Note ---
Date of Service July 13, 2021 Assessment & Plan (1) MOHINI (acute kidney injury): Plan: -2/acute tubular necrosis in the setting of Bacteremia/UTI/Sepsis with contrib ution from obstructive uropathy with right hydronephrosis. admission creat 5.9 . unknown baseline -. Creatinine and UOP stable past 24 hrs -daily bmp - Mild Hydronephrosis On CT abd/pelvis showed a 6 mm obstructing stone within the right ureteropelvic junction resulting in mild right hydronephrosis. s/p - cystoscopy, right retrograde pyelogram, right ureteral stent placement with Dr. Hector. still w/ marked leukocytosis Urology on board On IV abx cefepime, will transition to Ceftriaxone Continue IV Rocephin. (2) CVA (cerebral vascular accident): Plan: As per primary. (3) Hypernatremia: Plan: sNa 157 last evening, unchanged today despite D5W at 100 ml hourly >> increased to 200 mL hourly (when IV running ) and sNa down to 154 by 1300 -cont rate 200 mL hourly overnight, reduce as needed Admission and Anticipated Discharge Date Admission Date: July 08, 2021 Subjective IV access issues today and IVF have not run consistently; tolerating increased IV fluids; remains NPO in mitts; for head CT today with neuro review today Review of Systems Review of Systems: Unobtainable due to reduced consciousness Physical Exam Constitutional: well developed, well nourished, + obese and + altered mental status; no acute distress Eyes: EOM intact bilaterally ENMT: Ears: no external ear abnormality Nose: no external nose abnormality Mouth: + dry oral mucous membranes Neck: no nuchal rigidity Respiratory: normal respiratory effort Auscultation: + diminished lung sounds Cardiovascular: Rate/Rhythm: regular rate and regular rhythm Extremities: no edema Gastrointestinal (Abdomen): Inspection/Auscultation: normal bowel sounds Percussion/Palpation: abdomen soft; abdomen nontender Musculoskeletal: Extremities: strength 5/5 throughout Skin: no rashes, warm and dry blisters on her lips Neurologic: dvei, fluent speech, no tremor Genitourinary: elkins w/ ample clear urine Results & Data ([facility]) Vital Signs (Past 12 Hours) Vital Signs Temp Pulse Pulse Resp BP BP BP 07/13/21 17:39 36.4 C L 87 20 88/56 L 07/13/21 14:57 90 07/13/21 13:19 90 99/70 L 07/13/21 11:52 93 H 16 99/70 L 07/13/21 08:24 91 H 123/91 07/13/21 08:00 89 16 123/91 Pulse Ox 07/13/21 17:39 95 07/13/21 14:57 07/13/21 13:19 07/13/21 11:52 95 07/13/21 08:24 07/13/21 08:00 94 Laboratory Results 07/13/21 13:00 07/13/21 13:00
--- NOTE | 2021-07-13 19:07 | Hospitalist Progress Note ---
Date of Service July 13, 2021 Assessment & Plan (1) Bacteremia: (2) Sepsis: Plan: UTI Meet sepsis criteria on admission with elevated WBC and tachycardia currently on IV Cefepime, will transition to Rocephin Repeat blood cx no growth WBC 27K today Continue monitor CBC Continue IV Rocephin daily Occipital Subacute infarct MRI showed 2.6 cm focus of restricted diffusion identified in the right occipital lobe consistent with a subacute infarct. Additional subcentimeter foci of restricted diffusion in the right frontal cortex, the right cerebellar hemisphere, and the left parietal white matter are also consistent with acute to subacute infarcts. The distribution suggests an embolic event. carotid u/s showed no sonographic evidence of hemodynamically significant stenosis in the right or left carotid arterial system. Reversed flow in the right vertebral artery in this patient with subclavian steal syndrome. MRA brain showed Unremarkable MR angiogram of the brain. Neuro on board recommended aspirin 81mg daily alone due to pt low platelet count Pt said that she was only taking aspirin once a while Echo no LV wall motion abnormalities with EF 55-60% PT/OT eval Fall precaution Will need to arrange for outpatient ZIo patch Mental status seems to worsening, and repeat CT head yesterday showed no bleeding EEG showed no electrographic seizures or epileptiform activity is recorded. Repeat CT head showed no acute intracranial hemorrhage or midline shift. Episode of bloody bowel movement, will consider to hold aspirin Case discussed with neurology recommendd to change aspirin to Plavix once bleeding resolved Mental status slightly improves since pt was able to follow simple command Black stool +FOBT Hemoglobin stable possible due to hemoconcentration Gastro on board Due to recent stroke GI does not plan to proceed with any scope Gastro on board Started on IV PPI twice daily We will hold on NSAID for now Continue monitor H&H AFIB with RVR Mostly due to acute illness Converted to NSR last night after Lopressor IV Cardiology on board and started on Metoprolol 25mg BID Will hold on to start any heparin drip due to recent CVA due to risk of intracranial hemorrhage and recent urology procedure Continue monitor closely Hypernatremia Sodium 157 today Case discussed with nephrology recommended to increase D5 water to 200cc/hr Repeat Na 154 Continue IVF Renal Calculi Mild Hydronephrosis CT abd/pelvis showed a 6 mm obstructing stone within the right ureteropelvic junction resulting in mild right hydronephrosis. s/p cystoscopy, right retrograde pyelogram, right ureteral stent placement with Dr. Hector. Urology on board On IV abx cefepime, will transition to Ceftriaxone Continue IV Rocephin MOHINI Creatinine on admission 5.8 Possible related to renal calculi/hydronephrosis and sepsis Received IVF Nephrology on board Creatinine 1.9 today Oxybutynin discontinued due to dry mouth Continue monitor BP Hematuria Possible related to trauma due to pt confusion and recent urology procedure Plavix discontinued since neuro only recommended aspirin due to low platelet Continue monitor CBC Will consider to d/c elkins Abdominal aortic aneurysm. CT showed 4.2 cm infrarenal abdominal aortic aneurysm. Continue outpatient monitor with repeat imaging Keep BP well control Left Adrenal gland nodule CT showed a 2.7 cm indeterminate left adrenal gland nodule Will need outpatient follow up Thrombocytopenia Platelet continues to improve 185 today No sign of active bleeding Continue monitor Resolved Diabetes Most recent hab1c 7.7 Continue lantus and insulin sliding scale during hospital course diabetic education on board Will do lifestyle modification on discharge Check A1c in 3 months DVT prophylaxis. SCDs Re: Thrombocytopenia Will consider to add subq heparin once platelet improves DNR Patient requests for her daughter to be updated of progress/plan of care. Ms. Zuri Flor, contact #[phone]. Admission and Anticipated Discharge Date Admission Date: July 08, 2021 Subjective Pt was seen and examined for follow up altered mental status Lying in bed with no acute distress confused, restlessness She was able to follow simple commands She has not been eating much and pulling her IV access Nurse said that she had a bloody bowel movement Review of Systems Review of Systems: All systems reviewed & are unremarkable except as noted in Subjective Physical Exam Physical Exam: General- No acute distress, confused Head- atraumatic Eyes- PERRL, open eyes ENT- dry mouth, lips crack Neck- supple, no JVD Lungs- clear to auscultation Heart- regular rhythm; no murmur Abdomen- normal bowel sounds, soft, nontender Extremities- no calf tenderness, +thickened LE skin, B/L LE edema Neuro- alert, wakes, move all 4 extremities, was able to squeeze my finger, follow sample commands Skin- warm & dry Results & Data Results & Data ([facility]) Vital Signs (Past 12 Hours) Vital Signs Temp Pulse Pulse Resp BP BP BP 07/13/21 17:39 36.4 C L 87 20 88/56 L 07/13/21 14:57 90 07/13/21 13:19 90 99/70 L 07/13/21 11:52 93 H 16 99/70 L 07/13/21 08:24 91 H 123/91 07/13/21 08:00 89 16 123/91 Pulse Ox 07/13/21 17:39 95 07/13/21 14:57 07/13/21 13:19 07/13/21 11:52 95 07/13/21 08:24 07/13/21 08:00 94
[2021-07-14] MEDS: DEXTROSE 5% 1,000 ML IV SCH ×5 (00:54→17:29)
[2021-07-14] MEDS: METOPROLOL TARTRATE 1 MG/ML VIAL IV SCH ×4 (00:55→20:35)
[2021-07-14] MEDS: INSULIN ASPART 100 UNITS/ML 3 ML PEN SC SCH ×4 (05:32→20:36)
[2021-07-14 07:10] LABS: Hematocrit (blood only) 41.8 % (37-47); Hemoglobin 13.5 g/dL (12.0-16.0); Mean Corpuscular Hemoglobin 28.1 pg (25-34); Mean Corpuscular Hgb Conc 32.3 g/dL (32-36); Mean Corpuscular Volume 87.1 fL (80-100); Mean Platelet Volume 10.8 fL (7.4-10.4); Platelet Count 177 K/uL (130-400); RDW Coefficient of Variation 16.1 % (11.5-14.5); RDW Standard Deviation 51.6 fL (36.4-46.3); White Blood Count 24.76 K/uL (4.8-10.8)
[2021-07-14 07:44] LABS: BUN Creatinine Ratio 45.2 (10-20); Calcium 8.3 mg/dl (8.5-10.1); Creatinine Clr Calc Pharmacy 27.7 ml/min; Est GFR (African American) 27.6 ml/min; Est GFR (Non-African American) 23.8 ml/min
[2021-07-14] MEDS: PANTOprazole 40 MG in SYRINGE 0 ML IV SCH ×2 (08:53→20:37)
[2021-07-14] MEDS: ASPIRIN 81 MG ECTAB PO SCH (08:54)
[2021-07-14] MEDS: TAMSULOSIN HCL 0.4 MG CAP PO SCH (08:54)
[2021-07-14] MEDS: ATORVASTATIN 40 MG TAB PO SCH (08:54)
--- NOTE | 2021-07-14 10:56 | Communication Note ---
Date of Service: July 14, 2021 Chart reviewed. This is a 75 y/o female admitted with h/o CVA, admitted with urosepsis, MOHINI, mental status changes, subacute occipital infarct. GI consulted for black stool that was FOBT +. Overnight H&H slightly diminished in the setting of volume resuscitation, but remains within normal limits. She had a soft black stool this AM. As she has no chino bleeding and stable vital signs would not recommend endoscopy at this time. Would recommend conservative management and supportive care. - Continue Protonix 40 mg daily - Avoid NSAIDs - Continue to monitor H&H - GI will sign off Thank you for allowing us to participate in the care of this patient. Please call with any acute changes, questions or concerns. Please see addendum below with additional recommendation from my supervising physician. hemoGlobin and hematocrit appear to be remaining stable. Given this would not recommend endoscopic intervention for the present time. Please continue Protonix may reduce to 40 mg 1 time daily during remainder of admission, please call with any additional questions or concerns
[2021-07-14] MEDS: cefTRIAXone SODIUM 2,000 MG in DEXTROSE 5% 50 ML IV SCH (11:17)
--- NOTE | 2021-07-14 11:24 | Nephrology Progress Note ---
Date of Service July 14, 2021 Assessment & Plan (1) MOHINI (acute kidney injury): Plan: -2/acute tubular necrosis in the setting of Bacteremia/UTI/Sepsis with contrib ution from obstructive uropathy with right hydronephrosis. admission creat 5.9 . unknown baseline -Creatinine plateau'd past 24 hrs at about 2; marked hyperchloremia but improving; >1L UOP consistently ->>daily bmp - Mild Hydronephrosis On CT abd/pelvis showed a 6 mm obstructing stone within the right ureteropelvic junction resulting in mild right hydronephrosis. s/p - cystoscopy, right retrograde pyelogram, right ureteral stent placement with Dr. Hector. >>still w/ marked leukocytosis > consider repeat blood cxs or repeat imaging, though we do have one negative set Urology on board On IV abx cefepime, will transition to Ceftriaxone -Continue IV Rocephin. (2) CVA (cerebral vascular accident): Plan: As per primary. (3) Hypernatremia: Plan: improving today to 148 sNa 157 /, tolerating aggressive D5W at 200 ml hourly with intermittent challenges of IV access -cont rate 200 mL hourly, reduce as needed -repeat bmp ordered for 1600 >> minimal change on review and will cont IVF at current rate Admission and Anticipated Discharge Date Admission Date: July 08, 2021 Subjective sNa markedly improved today and pt has woken up; denies sob, uncontrolled pain in joints/mm, chest, abd, throat. denies edema Review of Systems Review of Systems: Other (limited by MS; has some flight of ideas) Physical Exam Constitutional: well developed, well nourished, + obese and + altered mental status (but much improved from yesterday); no acute distress Eyes: EOM intact bilaterally ENMT: Ears: no external ear abnormality Nose: no external nose abnormality Mouth: + dry oral mucous membranes hoarse voice Neck: no nuchal rigidity Respiratory: normal respiratory effort Auscultation: + diminished lung sounds Cardiovascular: Rate/Rhythm: regular rate and regular rhythm Extremities: no edema Gastrointestinal (Abdomen): Inspection/Auscultation: normal bowel sounds Percussion/Palpation: abdomen soft; abdomen nontender Musculoskeletal: Extremities: strength 5/5 throughout Skin: no rashes, warm and dry Psychiatric: Orientation: oriented to person and cooperative Eye Contact: good eye contact Genitourinary: elkins present Results & Data ([facility]) Vital Signs (Past 12 Hours) Vital Signs Temp Pulse Pulse Resp BP BP BP 07/14/21 08:00 89 07/14/21 07:55 90 118/64 07/14/21 07:30 36.7 C 90 18 118/64 07/14/21 04:44 36.5 C 101 H 18 118/71 07/14/21 00:55 93 H 102/67 07/14/21 00:00 87 07/13/21 23:45 99 H 102/63 Pulse Ox 07/14/21 08:00 07/14/21 07:55 07/14/21 07:30 95 07/14/21 04:44 95 07/14/21 00:55 07/14/21 00:00 07/13/21 23:45 95 Laboratory Results 07/14/21 06:50 07/14/21 06:50
--- NOTE | 2021-07-14 13:06 | Cardiology Progress Note ---
Date of Service July 14, 2021 Assessment & Plan (1) New onset a-fib: (2) Bacteremia: (3) Sepsis: (4) CVA (cerebral vascular accident): (5) Aortic stenosis: (6) Dyslipidemia: (7) Hyponatremia: (8) Thrombocytopenia: (9) MOHINI (acute kidney injury): (10) Smoker: (11) Hypoxia: (12) Mitral stenosis: Plan: The patient is maintaining sinus rhythm and cardiology has nothing additional to add. We will follow from the periphery. Admission and Anticipated Discharge Date Admission Date: July 08, 2021 Subjective Patient is alert today. Review of Systems Review of Systems: Not obtainable Physical Exam Physical Exam: General: no acute distress and stated age Head: normocephalic, no masses, lesions, tenderness or abnormalities Eyes: conjunctiva are pink and non-injected, sclera clear Neck: supple, no adenopathy, no bruits, normal jugular venous pulse, no hepatojugular reflux Chest: normal shape and normal respiratory effort Lungs: clear to auscultation and percussion Cardiac Exam: - regular rate & rhythm, no murmurs gallops or rubs - normal S1, normal S2 Pulses: 2(+) throughout Abdomen: abdomen soft, non-tender, no abnormal masses and no hepatosplenomegaly Musculoskeletal: no gait disturbance, no joint inflammation, no deforming arthritis Extremities: no edema and no cyanosis Neuro: grossly normal exam Results & Data ([facility]) Vital Signs (Past 12 Hours) Vital Signs Temp Pulse Pulse Resp BP BP Pulse Ox 07/14/21 11:41 36.7 C 91 H 20 126/68 96 07/14/21 08:00 89 07/14/21 07:55 90 118/64 07/14/21 07:30 36.7 C 90 18 118/64 95 07/14/21 04:44 36.5 C 101 H 18 118/71 95 Laboratory Results Laboratory Results - last 24 hr 07/13/21 07/13/21 07/13/21 13:00 13:00 17:48 WBC RBC Hgb 15.2 Hct 46.3 MCV MCH MCHC RDW Std Deviation RDW Coeff of Mary Kay Plt Count MPV Sodium 154 H Potassium 4.1 Chloride 123 H Carbon Dioxide 26 Anion Gap 5.0 BUN 90 H Creatinine 1.92 H Est Cr Clr Drug Dosing 28.4 Est GFR ( Amer) 29.2 Est GFR (Non-Af Amer) 25.2 BUN/Creatinine Ratio 47.0 H Glucose 201 H POC Glucose 110 H Calcium 8.7 Specimen Hemolysis 07/13/21 07/14/21 07/14/21 23:38 05:31 06:50 WBC 24.76 H RBC 4.80 Hgb 13.5 Hct 41.8 MCV 87.1 MCH 28.1 MCHC 32.3 RDW Std Deviation 51.6 H RDW Coeff of Mary Kay 16.1 H Plt Count 177 MPV 10.8 H Sodium Potassium Chloride Carbon Dioxide Anion Gap BUN Creatinine Est Cr Clr Drug Dosing Est GFR ( Amer) Est GFR (Non-Af Amer) BUN/Creatinine Ratio Glucose POC Glucose 185 H 146 H Calcium Specimen Hemolysis 07/14/21 07/14/21 06:50 11:56 WBC RBC Hgb Hct MCV MCH MCHC RDW Std Deviation RDW Coeff of Mary Kay Plt Count MPV Sodium 148 H Potassium 4.0 Chloride 117 H Carbon Dioxide 24 Anion Gap 6.0 BUN 91 H Creatinine 2.01 H Est Cr Clr Drug Dosing 27.7 Est GFR ( Amer) 27.6 Est GFR (Non-Af Amer) 23.8 BUN/Creatinine Ratio 45.2 H Glucose 187 H POC Glucose 182 H Calcium 8.3 L Specimen Hemolysis Medications Administered Current Inpatient Medications Acetaminophen (Acetaminophen 325 Mg Tab) 650 mg PO Q4H PRN PRN Reason: Pain or Fever Stop: 08/07/21 03:34 Aspirin (Aspirin 81 Mg Ectab) 81 mg PO QAM [facility] Stop: 08/08/21 08:59 Last Admin: 07/14/21 08:54 Dose: Not Given Documented by: Atorvastatin Calcium (Atorvastatin 40 Mg Tab) 40 mg PO DAILY [facility] Stop: 08/09/21 08:59 Last Admin: 07/14/21 08:54 Dose: Not Given Documented by: Clopidogrel Bisulfate (Clopidogrel Bisulfate 75 Mg Tab) 75 mg PO QAM [facility] Stop: 08/08/21 08:59 Last Admin: 07/11/21 09:26 Dose: 75 mg Documented by: Dextrose (Dextrose 50% 50 Ml Syringe) 25 - 50 ml IV UD PRN; Protocol PRN Reason: Hypoglycemia Protocol Stop: 08/07/21 20:11 Glucagon (Glucagon For Inj 1 Mg Vial) 1 mg SQ UD PRN; Protocol PRN Reason: Hypoglycemia Protocol Stop: 08/07/21 20:11 Glucose (Glucose 10 Tabs/Tube) 4 - 8 tabs PO UD PRN; Protocol PRN Reason: Hypoglycemia Protocol Stop: 08/07/21 20:11 Glucose (Glucose 40% Gel 15 Gm Tube) 15 - 30 gm PO UD PRN; Protocol PRN Reason: Hypoglycemia Protocol Stop: 08/07/21 20:11 Hydralazine HCl (Hydralazine Hcl 20 Mg/Ml Vial) 5 mg IV Q8 PRN PRN Reason: Blood Pressure - High Stop: 08/11/21 13:22 Last Admin: 07/12/21 17:24 Dose: 5 mg Documented by: Promethazine HCl 12.5 mg/ (Sodium Chloride) 50.5 mls @ 202 mls/hr IV Q6H PRN PRN Reason: Nausea And Vomiting Stop: 08/07/21 03:34 Last Infusion: 07/08/21 09:12 Dose: Infused Documented by: Ceftriaxone Sodium 2,000 mg/ (Dextrose) 70 mls @ 140 mls/hr IV DAILY@1200 [facility] Stop: 07/24/21 11:59 Last Admin: 07/14/21 11:17 Dose: 140 mls/hr Documented by: Dextrose (D5w) 1,000 mls @ 200 mls/hr IV .Q5H [facility] Stop: 08/11/21 12:29 Last Admin: 07/14/21 11:17 Dose: 200 mls/hr Documented by: Pantoprazole Sodium 40 mg/ (Syringe) 10 mls @ 5 mls/min IV BID [facility] Stop: 08/12/21 08:59 Last Admin: 07/14/21 08:53 Dose: 5 mls/min Documented by: Insulin Aspart (Insulin Aspart 100 Units/Ml 3 Ml Pen) 0 units SC Q6 [facility] Stop: 08/11/21 11:59 Last Admin: 07/14/21 12:12 Dose: 2 units Documented by: Ipratropium Shedd (Ipratropium Shedd Neb Soln 0.02% 2.5 Ml Vial) 0.5 mg INH Q4H PRN PRN Reason: sob/wheezing Stop: 08/07/21 03:34 Levalbuterol HCl (Levalbuterol 1.25mg/0.5ml Neb) 1.25 mg INH Q4H PRN PRN Reason: sob/wheezing Stop: 08/07/21 03:34 Metoprolol Succinate (Metoprolol Succ 25mg Ext Rel Tab) 25 mg PO [id number] [facility] Stop: 08/10/21 16:59 Last Admin: 07/12/21 09:55 Dose: Not Given Documented by: Metoprolol Tartrate (Metoprolol Tartrate 1 Mg/Ml Vial) 2.5 mg IV Q6H [facility] Stop: 08/11/21 13:29 Last Admin: 07/14/21 07:55 Dose: 2.5 mg Documented by: Miscellaneous (Carbohydrates For Hypoglycemia ) 15 - 30 gm PO UD PRN PRN Reason: Hypoglycemia Protocol Stop: 08/07/21 20:11 Olanzapine (Olanzapine 10 Mg/2.1 Ml Sdv) 2.5 mg IM Q4H PRN PRN Reason: Anxiety/Agitation Stop: 08/11/21 20:32 Last Admin: 07/13/21 05:53 Dose: 2.5 mg Documented by: Oxycodone HCl (Oxycodone Hcl Ir 5 Mg Tab (Immediate Release)) 5 mg PO Q4H PRN PRN Reason: Pain Stop: 07/22/21 03:34 Tamsulosin HCl (Tamsulosin Hcl 0.4 Mg Cap) 0.4 mg PO QAM [facility] Stop: 08/08/21 08:59 Last Admin: 07/14/21 08:54 Dose: Not Given Documented by:
[2021-07-14 16:35] LABS: BUN Creatinine Ratio 46.4 (10-20); Calcium 8.1 mg/dl (8.5-10.1); Est GFR (Non-African American) 24.1 ml/min; Potassium 3.9 mmol/L (3.5-5.1)
[2021-07-14] MEDS ORDERED: Nursing to Pharmacy Communication SCH (17:30)
--- NOTE | 2021-07-14 20:59 | Hospitalist Progress Note ---
Date of Service July 14, 2021 Assessment & Plan (1) Bacteremia: (2) Sepsis: Plan: UTI Meet sepsis criteria on admission with elevated WBC and tachycardia currently on IV Cefepime, will transition to Rocephin Repeat blood cx no growth WBC trending down to 24K Continue monitor CBC Continue IV Rocephin daily Occipital Subacute infarct MRI showed 2.6 cm focus of restricted diffusion identified in the right occipital lobe consistent with a subacute infarct. Additional subcentimeter foci of restricted diffusion in the right frontal cortex, the right cerebellar hemisphere, and the left parietal white matter are also consistent with acute to subacute infarcts. The distribution suggests an embolic event. carotid u/s showed no sonographic evidence of hemodynamically significant stenosis in the right or left carotid arterial system. Reversed flow in the r ight vertebral artery in this patient with subclavian steal syndrome. MRA brain showed Unremarkable MR angiogram of the brain. Neuro on board recommended aspirin 81mg daily alone due to pt low platelet count Pt said that she was only taking aspirin once a while Echo no LV wall motion abnormalities with EF 55-60% PT/OT eval Fall precaution Will need to arrange for outpatient ZIo patch Mental status seems to worsening, and repeat CT head yesterday showed no bleeding EEG showed no electrographic seizures or epileptiform activity is recorded. Repeat CT head showed no acute intracranial hemorrhage or midline shift. Episode of bloody bowel movement, will consider to hold aspirin Case discussed with neurology recommended to change aspirin to Plavix once bleeding resolved Mental status improved significantly (patient awake, talking and follow commands) Clinically improved Black stool +FOBT Hemoglobin stable possible due to hemoconcentration Gastro on board Due to recent stroke GI does not plan to proceed with any scope Gastro on board Continue on IV PPI twice daily Continue to hold NSAID for now Will transition to Plavix Continue to resume Plavix in a.m. if H&H stable AFIB with RVR Mostly due to acute illness Converted to NSR last night after Lopressor IV Cardiology on board and started on Metoprolol 25mg BID Will hold on to start any heparin drip due to recent CVA due to risk of intracranial hemorrhage and recent urology procedure Continue monitor closely Hypernatremia Sodium decreased to 148 today Since patient started on the diet will decrease D5 water 200 cc/hr Continue monitor BMP Renal Calculi Mild Hydronephrosis CT abd/pelvis showed a 6 mm obstructing stone within the right ureteropelvic junction resulting in mild right hydronephrosis. s/p cystoscopy, right retrograde pyelogram, right ureteral stent placement with Dr. Hector. Urology on board On IV abx cefepime, will transition to Ceftriaxone Continue IV Rocephin MOHINI Creatinine on admission 5.8 Possible related to renal calculi/hydronephrosis and sepsis Received IVF Nephrology on board Creatinine 1.9 today Oxybutynin discontinued due to dry mouth Continue monitor BP Hematuria Possible related to trauma due to pt confusion and recent urology procedure Plavix discontinued since neuro only recommended aspirin due to low platelet Continue monitor CBC Will consider to d/c elkins Abdominal aortic aneurysm. CT showed 4.2 cm infrarenal abdominal aortic aneurysm. Continue outpatient monitor with repeat imaging Keep BP well control Left Adrenal gland nodule CT showed a 2.7 cm indeterminate left adrenal gland nodule Will need outpatient follow up Thrombocytopenia Platelet continues to improve 177 today No sign of active bleeding Continue monitor Resolved Diabetes Most recent hab1c 7.7 Continue lantus and insulin sliding scale during hospital course diabetic education on board Will do lifestyle modification on discharge Check A1c in 3 months DVT prophylaxis. SCDs Re: Thrombocytopenia Will consider to add subq heparin once platelet improves and hemoglobin stable DNR Patient requests for her daughter to be updated of progress/plan of care. Ms. Zuri Flor, contact #[phone]. Admission and Anticipated Discharge Date Admission Date: July 08, 2021 Subjective Pt was seen and examined for follow up altered mental status Lying in bed with no acute distress She is awake, talking on the phone and follow commands Had a bedside swallow eval and was started on diet and tolerated well Staff did not notice any dark stool today Denies any chest pain, palpitation, dizziness, shortness of breath. Review of Systems Review of Systems: All systems reviewed & are unremarkable except as noted in Subjective Physical Exam Physical Exam: General- No acute distress, confused Head- atraumatic Eyes- PERRL, open eyes ENT- dry mouth, lips crack Neck- supple, no JVD Lungs- clear to auscultation Heart- regular rhythm; no murmur Abdomen- normal bowel sounds, soft, nontender Extremities- no calf tenderness, +thickened LE skin, B/L LE edema Neuro- alert, wakes, move all 4 extremities, was able to squeeze my finger, follow sample commands Skin- warm & dry Results & Data Results & Data ([place]) Vital Signs (Past 12 Hours) Vital Signs Temp Pulse Pulse Resp BP BP BP 07/14/21 20:35 95 H 125/62 07/14/21 19:50 36.3 C L 66 19 131/58 L 07/14/21 18:08 84 19 110/62 07/14/21 16:06 36.8 C 58 L 18 90/52 L 07/14/21 15:11 78 07/14/21 14:10 80 108/68 07/14/21 11:41 36.7 C 91 H 20 126/68 Pulse Ox 07/14/21 20:35 07/14/21 19:50 95 07/14/21 18:08 96 07/14/21 16:06 94 07/14/21 15:11 07/14/21 14:10 07/14/21 11:41 96
[2021-07-15] MEDS: DEXTROSE 5% 1,000 ML IV SCH ×2 (00:12→15:51)
[2021-07-15] MEDS: METOPROLOL TARTRATE 1 MG/ML VIAL IV SCH ×4 (01:05→19:29)
[2021-07-15 07:34] LABS: Hematocrit (blood only) 37.7 % (37-47); Hemoglobin 12.2 g/dL (12.0-16.0); Mean Corpuscular Hemoglobin 28.2 pg (25-34); Mean Corpuscular Hgb Conc 32.4 g/dL (32-36); Mean Corpuscular Volume 87.3 fL (80-100); Mean Platelet Volume 10.7 fL (7.4-10.4); Platelet Count 161 K/uL (130-400); RDW Coefficient of Variation 15.7 % (11.5-14.5); Red Blood Count 4.32 M/uL (4.2-5.4); White Blood Count 21.75 K/uL (4.8-10.8)
[2021-07-15] MEDS: ASPIRIN 81 MG ECTAB PO SCH (08:10)
[2021-07-15] MEDS: PANTOprazole 40 MG in SYRINGE 0 ML IV SCH (08:11)
[2021-07-15] MEDS: TAMSULOSIN HCL 0.4 MG CAP PO SCH (08:11)
[2021-07-15] MEDS: ATORVASTATIN 40 MG TAB PO SCH (08:11)
[2021-07-15 08:13] LABS: BUN Creatinine Ratio 49.9 (10-20); Calcium 8.3 mg/dl (8.5-10.1); Creatinine Clr Calc Pharmacy 29.8 ml/min; Est GFR (African American) 30.2 ml/min
[2021-07-15] MEDS: INSULIN ASPART 100 UNITS/ML 3 ML PEN SC SCH ×4 (08:15→20:42)
--- NOTE | 2021-07-15 11:08 | Hospitalist Progress Note ---
Date of Service July 15, 2021 Assessment & Plan (1) Bacteremia: (2) Sepsis: Plan: per Dr. Lambert's noted with addendum: Sepsis, E coli UTI E coli bacteremia Right UPJ stone, s/p Ureteral Stent Placement CT abd/pelvis showed a 6 mm obstructing stone within the right ureteropelvic junction resulting in mild right hydronephrosis. s/p cystoscopy, right retrograde pyelogram, right ureteral stent placement with Dr. Hector. repeat Blood culture: negative IV Cefepime x 2 days, Rocephin day 5/12 ff up with Urology Occipital Subacute infarcts, Likely Embolic MRI showed 2.6 cm focus of restricted diffusion identified in the right occipital lobe consistent with a subacute infarct. Additional subcentimeter foci of restricted diffusion in the right frontal cortex, the right cerebellar hemisphere, and the left parietal white matter are also consistent with acute to subacute infarcts. The distribution suggests an embolic event. carotid u/s showed no sonographic evidence of hemodynamically significant stenosis in the right or left carotid arterial system. Reversed flow in the right vertebral artery in this patient with subclavian steal syndrome. MRA brain showed Unremarkable MR angiogram of the brain. Neuro on board recommended aspirin 81mg daily alone due to pt low platelet count Pt said that she was only taking aspirin once a while Echo no LV wall motion abnormalities with EF 55-60% PT/OT eval Fall precaution Will need to arrange for outpatient ZIo patch Mental status seems to worsening, and repeat CT head yesterday showed no bleeding EEG showed no electrographic seizures or epileptiform activity is recorded. Repeat CT head showed no acute intracranial hemorrhage or midline shift. Mental status improved significantly (patient awake, talking and follow commands) Case discussed with neurology recommended to change aspirin to Plavix once bleeding resolved Clinically improved 07/15 hold ASA if Hg stable tomorrow, start Plavix AFIB with RVR Mostly due to acute illness Converted to NSR after Lopressor IV Cardiology on board and started on Metoprolol 25mg BID Will hold on to start any heparin drip due to recent CVA due to risk of intracr anial hemorrhage and recent urology procedure 07/15 (+) A fib , HR controlled not a candidate for anticoag for now in light of acute cva and ureteral stent placement Plavix when Hg stable Melena, possible Upper GI bleed +FOBT Hemoglobin stable possible due to hemoconcentration Gastro on board Due to recent stroke GI does not plan to proceed with any scope Gastro on board Continue on IV PPI twice daily Continue to hold NSAID for now Will transition to Plavix Continue to resume Plavix in a.m. if H&H stable Hypernatremia Sodium decreased to 148 --> 143 d/c IV fluids Continue monitor BMP MOHINI Creatinine on admission 5.8 Possible related to renal calculi/hydronephrosis and sepsis Received IVF Nephrology on board Creatinine 1.8 Oxybutynin discontinued due to dry mouth Continue monitor BP Hematuria Possible related to trauma due to pt confusion and recent urology procedure no hematuria d/c elkins soon Abdominal aortic aneurysm. CT showed 4.2 cm infrarenal abdominal aortic aneurysm. Continue outpatient monitor with repeat imaging Keep BP well control Left Adrenal gland nodule CT showed a 2.7 cm indeterminate left adrenal gland nodule Will need outpatient follow up Thrombocytopenia resolved No sign of active bleeding Continue monitor Diabetes Most recent hab1c 7.7 Continue lantus and insulin sliding scale during hospital course diabetic education on board Will do lifestyle modification on discharge Check A1c in 3 months DVT prophylaxis. SCDs Re: Thrombocytopenia Will consider to add subq heparin once platelet improves and hemoglobin stable DNR Disposition continue PT/OT evals Admission and Anticipated Discharge Date Admission Date: July 08, 2021 Subjective ff up for altered mental status, etc seen resting in bed, comfortable very conversant answers most questions appropriately, occasional would be tangential states she feels better compared to admission denies fever/chills, nausea/vomiting no new weakness, numbness or focal deficits no chest pain, dyspnea, palpitations, dizziness (+) melena last night per RN no abdominal pain, tolerating diet well no other symptoms Review of Systems Review of Systems: all noted and negative except for above Physical Exam Physical Exam: General- oriented x 2-3, not in distress, speaks in sentences with no effort or accessory muscle use Head- atraumatic Eyes- PERRL, EOMI, anicteric ENT- oropharynx clear Neck- supple, no JVD, no adenopathy, no thyromegaly; carotids +2/2, no bruits appreciated Lungs- clear to auscultation bilaterally, no rales/wheezes Heart- normal rate, regular rhythm; no murmur, no gallop, no rub appreciated Abdomen- normal bowel sounds, nondistended, soft, nontender, no masses or hepatosplenomegaly Extremities- no pretibial edema, no calf tenderness; peripheral pulses intact Neuro- alert, oriented x 3; CN 2-12 grossly intact; motor 5/5 bilat erally;sensation 100% on all extremities; no other gross focal neurologic deficits Skin- warm & dry Results & Data Results & Data ([facility]) Vital Signs (Past 12 Hours) Vital Signs Temp Pulse Pulse Resp BP BP Pulse Ox 07/15/21 08:16 87 103/50 L 07/15/21 07:04 36.6 C 87 19 103/50 L 94 07/15/21 03:51 36.7 C 85 19 119/68 92 07/15/21 00:00 84 07/14/21 23:30 36.4 C L 85 18 129/62 91 all noted and reviewed including below
[2021-07-15] MEDS: cefTRIAXone SODIUM 2,000 MG in DEXTROSE 5% 50 ML IV SCH (12:25)
[2021-07-15] MEDS ORDERED: SODIUM CHLORIDE 0.9% 1000ML 250 ML IV ONE (14:12)
[2021-07-15] MEDS ORDERED: PANTOPRAZOLE BOLUS/DRIP 1 EA IV STA (14:14)
[2021-07-15] MEDS ORDERED: SODIUM CHLORIDE 0.9% 1000ML 1,000 ML IV SCH (14:15)
[2021-07-15] MEDS ORDERED: PANTOprazole 80 MG in DEXTROSE 5% 100 ML IV ONE (14:30)
[2021-07-15 14:42] LABS: Hemoglobin 11.7 g/dL (12.0-16.0)
[2021-07-15] MEDS: PANTOprazole 40 MG in DEXTROSE 5% 100 ML IV SCH ×2 (15:08→23:32)
--- NOTE | 2021-07-15 19:35 | Nephrology Progress Note ---
Date of Service July 15, 2021 Assessment & Plan (1) MOHINI (acute kidney injury): Plan: -acute tubular necrosis in the setting of Bacteremia/UTI/Sepsis with contribut ion from obstructive uropathy with right hydronephrosis. admission creat 5.9 . unknown baseline. - Mild Hydronephrosis On CT abd/pelvis showed a 6 mm obstructing stone within the right ureteropelvic junction resulting in mild right hydronephrosis. s/p - cystoscopy, right retrograde pyelogram, right ureteral stent placement with Dr. Hector. -Creatinine plateau'd 07/12-07/15 at about 2; marked hyperchloremia but improving; >1L UOP consistently ->>daily bmp -changed NS to LR given her hyperchloremia >>still w/ marked leukocytosis >-Continue IV Rocephin. (2) CVA (cerebral vascular accident): Plan: As per primary. (3) Hypernatremia: Plan: improving today to 148 sNa 157 07/13, tolerating aggressive D5W at 200 ml hourly with intermittent challenges of IV access -cont rate 200 mL hourly, reduce as needed -repeat bmp ordered for 1600 >> minimal change on review and will cont IVF at current rate Admission and Anticipated Discharge Date Admission Date: July 08, 2021 Subjective Feeling much better today: More awake with less residual right foot weakness. She is hungry but when food comes she is tempted only by the Sprite. Denies shortness of breath. No abdominal pain Review of Systems Review of Systems: All systems reviewed & are unremarkable except as noted in Subjective Physical Exam Constitutional: well developed, well nourished, + obese and + altered mental status (but again very much improved from yesterday); no acute distress Eyes: EOM intact bilaterally ENMT: Ears: no external ear abnormality Nose: no external nose abnormality Mouth: + dry oral mucous membranes Neck: no nuchal rigidity Respiratory: normal respiratory effort Auscultation: + diminished lung sounds (Especially bilateral bases with occasional rhonchi) Cardiovascular: Rate/Rhythm: regular rate and regular rhythm Extremities: no edema Gastrointestinal (Abdomen): Inspection/Auscultation: normal bowel sounds Percussion/Palpation: abdomen soft; abdomen nontender Musculoskeletal: Extremities: strength 5/5 throughout Skin: no rashes, warm and dry Psychiatric: Orientation: oriented to person and cooperative Eye Contact: good eye contact Results & Data ([facility]) Vital Signs (Past 12 Hours) Vital Signs Temp Pulse Pulse Resp BP BP Pulse Ox 07/15/21 19:29 90 119/58 L 07/15/21 19:17 37.2 C 87 18 119/58 L 93 07/15/21 17:00 116/70 07/15/21 14:02 92/52 L 07/15/21 13:48 92/52 L 07/15/21 11:45 36.6 C 84 20 95/59 L 96 07/15/21 08:16 87 103/50 L Laboratory Results 07/15/21 14:34 07/15/21 08:22
[2021-07-15] MEDS ORDERED: LACTATED RINGER'S 1,000 ML IV SCH (19:45)
[2021-07-15 20:32] LABS: Hematocrit (blood only) 32.4 % (37-47)
[2021-07-16] MEDS: METOPROLOL TARTRATE 1 MG/ML VIAL IV SCH (04:26)
--- NOTE | 2021-07-16 04:26 | Communication Note ---
Date of Service: July 16, 2021 352 AM Made aware by RN of SBP 70s. More profuse GI bleed with red blood clots as per RN. No obvious abdominal pain as per RN. Usual patient disorientation/agitation. AP Hypotension secondary to worsening GI bleed ? Diarrhea rule out C. difficile Unable to access patient's EMR currently secondary to [employer] DOWNTIME. NSS bolus Continue PPI Stool C. difficile Stat CBC, CHEM, INR, coags, lactic acid, type and screen 410 AM Patient refusing labs. PPE Disoriented, obese Pallor No overt abdominal tenderness Patient sister/first personal vehicle advisor (Ms. Johanna Byrnes, contact #[phone]) updated of developments over the phone. Possibility of pursuing comfort measures in light of patient's non-cooperation, multiple comorbidities, and patient's DNR status from admission broached. Patient sister requesting continuing medical management including blood transfusions, possible pressor Rx, procedural interventions for now. Agreeable to sedating patient in order to draw blood work. Telephone consent obtained from patient sister for potential blood transfusions. Patient DNR status was still to be upheld however. 513 AM SBP 60-80s as per RN Continue fluid bolus Follow stat a.m. labs Flagyl 1 dose for presumptive C. difficile Hg 8.3 from 11 (07/15) BIT SANDER voiced concerns regarding patient's IV access. Transfer to ICU for further management of hypotension. ICU provider recommended 2 units packed RBC to be transfused given hemoglobin drop from ongoing hemorrhage. Will relay to AM provider.
[2021-07-16] MEDS ORDERED: SODIUM CHLORIDE 0.9% 500 ML IV ONE (04:45)
[2021-07-16] MEDS ORDERED: OLANZapine 10 MG/2.1 ML SDV IM STA ×2 (04:47→04:51)
[2021-07-16] MEDS: OLANZapine 10 MG/2.1 ML SDV IM PRN (05:02)
[2021-07-16] MEDS: PANTOprazole 40 MG in DEXTROSE 5% 100 ML IV SCH ×4 (05:04→14:20)
[2021-07-16] MEDS ORDERED: metroNIDAZOLE 500 MG/100 ML BAG IV STA (05:07)
[2021-07-16] MEDS ORDERED: LACTATED RINGER'S 1,000 ML IV ONE (05:30)
[2021-07-16 05:46] LABS: Hemoglobin 8.3 g/dL (12.0-16.0); Mean Corpuscular Hemoglobin 28.7 pg (25-34); Mean Corpuscular Hgb Conc 33.2 g/dL (32-36); Mean Corpuscular Volume 86.5 fL (80-100); Mean Platelet Volume 10.9 fL (7.4-10.4); Platelet Count 169 K/uL (130-400); RDW Coefficient of Variation 15.5 % (11.5-14.5); RDW Standard Deviation 48.6 fL (36.4-46.3); Red Blood Count 2.89 M/uL (4.2-5.4); White Blood Count 28.15 K/uL (4.8-10.8)
[2021-07-16 05:55] LABS: INR 1.2 (0.9-1.1)
[2021-07-16 06:13] LABS: Albumin Level 1.7 gm/dl (3.4-5.0); BUN Creatinine Ratio 50.1 (10-20); Calcium 7.3 mg/dl (8.5-10.1); Creatinine Clr Calc Pharmacy 26.2 ml/min; Est GFR (African American) 25.8 ml/min; Est GFR (Non-African American) 22.2 ml/min; Magnesium 1.6 mg/dl (1.8-2.4); Potassium 4.8 mmol/L (3.5-5.1)
[2021-07-16 06:16] LABS: Albumin Globulin Ratio 0.6 (0.9-2); Bilirubin,Total 0.5 mg/dl (0.2-1); Globulin 2.8 gm/dl (2.5-4.0); Total Protein 4.5 gm/dl (6.4-8.2)
[2021-07-16] MEDS ORDERED: MAGNESIUM SULFATE / D5W 1 GM/100 ML BAG IV ONE (06:24)
[2021-07-16] MEDS ORDERED: LACTATED RINGER'S 1,000 ML IV SCH (06:30)
[2021-07-16] MEDS ORDERED: CALCIUM GLUCONATE 10% 1,000 MG in SODIUM CHLORIDE 0.9% 50 ML IV ONE (06:42)
[2021-07-16] MEDS ORDERED: SODIUM CHLORIDE 0.9% 250 ML IV PRN ×2 (06:45→06:48)
[2021-07-16] MEDS ORDERED: GLUCOSE 10 TABS/TUBE PO PRN (06:48)
[2021-07-16] MEDS ORDERED: GLUCOSE 40% GEL 15 GM TUBE PO PRN (06:48)
[2021-07-16] MEDS ORDERED: DEXTROSE 50% 50 ML SYRINGE IV PRN (06:48)
[2021-07-16] MEDS ORDERED: GLUCAGON FOR INJ 1 MG VIAL SQ PRN (06:48)
[2021-07-16] MEDS ORDERED: ICU PROTOCOL FOR HYPERGLYCEMIA PRN (06:48)
[2021-07-16] MEDS ORDERED: CARBOHYDRATES FOR HYPOGLYCEMIA PO PRN (06:48)
[2021-07-16] MEDS ORDERED: NOREPINEPHRINE/D5W 8 MG/508 ML IV ONE (07:02)
[2021-07-16] MEDS: NOREPINEPHRINE/D5W 8 MG/508 ML BAG IV SCH ×3 (07:20→13:46)
[2021-07-16] MEDS ORDERED: TRANEXAMIC ACID / 0.7% NACL 1,000 MG/100 ML BAG IV STA (07:28)
[2021-07-16] MEDS ORDERED: STAT IV Infusion **Titration per Protocol STA ×4 (07:28→19:02)
--- NOTE | 2021-07-16 07:36 | XRay Report ---
XR chest 1V portable CLINICAL HISTORY: s/p central line placement COMPARISON STUDY: Chest radiograph July 08, 2021. FINDINGS: There is no pneumothorax following placement of a right-sided central line. Tip projects ov er the expected location of the distal SVC. Pulmonary edema has improved since prior exam in addition . There is cardiomegaly. Old bilateral rib fractures are incidentally noted. Right basilar opacity garnica s improved. IMPRESSION: 1. No pneumothorax following placement of a right sided central line. Tip projects over the expected location of the distal SVC. 2. Interval resolution of pulmonary edema and improvement in right basilar opacity. ACT 112: Negative or not required by law. Electronically signed by: Mateo Diaz M.D. 07/16/2021 7:34 AM
[2021-07-16 07:44] LABS: Basophils # (auto) 0.04 K/uL (0-0.2); Basophils % (auto) 0.1 %; Eosinophils # (auto) 0.09 K/uL (0-0.5); Eosinophils % (auto) 0.3 %; Immature Granulocytes # (auto) 0.42 K/uL (0.00-0.02); Immature Granulocytes % (auto) 1.5 %; Lymphocytes # (auto) 1.68 K/uL (1.2-3.4); Monocytes # (auto) 0.96 K/uL (0.11-0.59); Monocytes % (auto) 3.4 %; Neutrophils # (auto) 24.96 K/uL (1.4-6.5); Neutrophils % (auto) 88.7 %
[2021-07-16 07:51] LABS: Fibrinogen 173 mg/dl (184-400)
[2021-07-16] MEDS ORDERED: SODIUM CHLORIDE 0.9% 1000ML 1,000 ML IV ONE (07:52)
--- NOTE | 2021-07-16 08:03 | Procedure Note ---
Procedure Note Date of Service July 16, 2021 Note INTERNAL JUGULAR CENTRAL LINE PROCEDURE NOTE: Procedure: Internal Jugular Central Line Placement Attending: Dr. Gutierrez Provider: JAZLYN Avery Indication: Central Drug Administration, Poor Venous Access Anesthesia: Lidocaine 1% Line placed emergently in the setting of hypovolemic shock secondary to GI bleed/acute blood loss anemia with poor venous access A time-out was completed verifying correct patient, procedure, site, positioning, and implants(s) or special equipment if applicable. Patients right neck was cleansed and draped in the typical sterile fashion using Chloraprep. The Internal Jugular Vein and Carotid Artery were identified using ultrasound. The superficial tissue was anesthetized using 3 mL of 1% lidocaine without epinephrine under direct visualization with the ultrasound. After adequate anesthetization was achieved, the Internal Jugular vein was cannulated under direct ultrasound guidance using an introducer needle on a syringe. Good venous blood return was maintained prior to removal of syringe from introducer needle. Using Seldinger Technique, a guide wire was advanced through the introducer needle without resistance. The introducer needle was removed and ultrasound images were obtained of the guide wire within the Internal Jugular Vein and saved to the patients medical record. A small incision was made in penetrating fashion at the guide wire insertion site utilizing an 11 blade scalpel. The dilator was advanced to the vessel without resistance. The dilator was exchanged for the triple lumen catheter which was advanced into the vessel without resistance. The guide wire was removed intact from the catheter without issue. Claves were placed on each catheter tip with confirmation of good blood flow from each lumen. Each port was easily flushed with sterile saline. The catheter was placed at 16 cm [address] in place. BioPatch was applied to the catheter and a sterile Tegaderm dressing was applied over the catheter with careful attention to sterility. Patient tolerated procedure well. No immediate complications were met. Post procedure x-ray was completed, placement was appropriate and no pneumothorax was noted. Images obtained are saved for permanent record Procedural Ultrasound Guidance: Procedure Date: 07/16/2021 Indication: Central venous catheter insertion Attending: Dr. Gutierrez Provider: JAZLYN Avery Artery AND Vein visualized: Yes Compressible Vein: Yes Guidewire or Short Catheter seen in vein prior to dilation: Yes Line confirmed in Vein with ultrasound: Yes Images obtained are saved for permanent record. Coding CPT Codes Tubes, Drains, and Vasc Access - Tubes, Drains, and Vasc Access: [id number] Place catheter in vein superior or inferior vena cava ([id number]) Tubes, Drains, and Vasc Access - Tubes, Drains, and Vasc Access: [id number] Ultrasound Guidance For Vascular ([id number]) [facility] [place] Codes (Charges) Tubes, Drains, and Vasc Access Procedure 1: Tubes, Drains, and Vasc Access: [id number] Place catheter in vein superior or inferior vena cava Procedure 2: Tubes, Drains, and Vasc Access: [id number] Ultrasound Guidance For Vascular
[2021-07-16] MEDS ORDERED: MAGNESIUM SULFATE / D5W 1 GM/100 ML BAG IV SCH (08:23)
[2021-07-16] MEDS: INSULIN ASPART 100 UNITS/ML 3 ML PEN SC SCH ×3 (08:38→16:18)
--- NOTE | 2021-07-16 09:00 | Gastroenterology Progress Note ---
Date of Service July 16, 2021 Assessment & Plan (1) Black stool: (2) Anemia: Plan: This is a 75 y/o female admitted with h/o CVA, admitted with urosepsis, MOHINI, mental status changes, subacute occipital infarct, on ASA and Plavix. GI initially consulted for black stool that was FOBT +, in the setting of stable HGB and hyperglycemia. As she had no chino bleeding and stable vitals/H&H, endoscopy was deferred. She has since had a drop in HGB, bump in BUN, with further black and now bloody stools and is now hypotensive requiring pressor support and volume resuscitation. BP has responded somewhat to these efforts. Per nursing she is DNI/DNR. At present is lethargic, abd is soft. - Will plan for EGD today to evaluate for concern of UGIB - Appreciate volume resuscitation and supportive care by heel sewer/primary teams - IV PPI gtt - IVF - NPO - Trend H&H, transfuse PRN Thank you for allowing us to participate in the care of this patient. Please call with any acute changes, questions or concerns. Please see addendum below with additional recommendation from my supervising physician. Admission and Anticipated Discharge Date Admission Date: July 08, 2021 Supervising Physician Co-Signing Physician Notes I performed a history and physical examination of the patient today, including specifically on physical exam - soft abdomen. I have discussed the patient's management with the advanced practitioner. Please refer to the nurse practitioner's note for the documented findings and plan of care. Plan was for urgent EGD today however the family declined any further intervention and opted for comfort care only. Recall GI if needed. Subjective Patient seen and examined, chart reviewed. We are asked to evaluate her for drop in hemoglobin - was 12 yesterday, today 8, BUN 92->107, and has had several black tarry stools and red blood with clots overnight, now hypotensive and has been moved to the ICU. BP was 70's systolic now 90's systolic. Pt appears lethargic, not able to provide history. She is being volume resuscitated with FFP, PRBC, cryo precipitate, and is on pressors. Has not had obvious hematemesis. Review of Systems Review of Systems: Unobtainable due to reduced consciousness Physical Exam Constitutional: Ill appearing, laying supine in bed Respiratory: Scattered rhonchi, no wheezing Cardiovascular: RRR, no murmur, no edema Gastrointestinal (Abdomen): Obese, soft, nondistended, nontender, dried black material per rectum Skin: no rashes, warm and dry Psychiatric: lethargic, doesn't answer questions Results & Data ([facility]) Vital Signs (Past 12 Hours) Vital Signs Temp Pulse Pulse Resp BP BP BP 07/16/21 08:32 88 94/57 L 07/16/21 08:10 36.4 C L 97 H 19 77/61 L 07/16/21 08:09 35.9 C L 07/16/21 08:08 36.4 C L 93 H 22 77/61 L 07/16/21 08:06 35.9 C L 91 H 30 H 87/30 L 07/16/21 07:33 35.5 C L 95 H 20 68/45 L 07/16/21 07:31 99 H 23 68/45 L 07/16/21 06:15 82/54 L 07/16/21 05:13 64/38 L 07/16/21 05:08 76/48 L 07/16/21 04:30 74/50 L 07/16/21 03:53 36.9 C 96 H 24 72/47 L 07/16/21 03:52 97 H 22 67/45 L 07/15/21 22:56 36.7 C 88 18 93/61 L Pulse Ox 07/16/21 08:32 98 07/16/21 08:10 98 07/16/21 08:09 07/16/21 08:08 91 07/16/21 08:06 97 07/16/21 07:33 100 07/16/21 07:31 07/16/21 06:15 07/16/21 05:13 07/16/21 05:08 07/16/21 04:30 07/16/21 03:53 95 07/16/21 03:52 95 07/15/21 22:56 93 Laboratory Results 07/16/21 07/16/21 07/16/21 Range/Units 08:37 07:24 07:24 WBC (4.8-10.8) K/uL RBC (4.2-5.4) M/uL Hgb (12.0-16.0) g/dL Hct (37-47) % MCV (80-100) fL MCH (25-34) pg MCHC (32-36) g/dL RDW Std Deviation (36.4-46.3) fL RDW Coeff of Mary Kay (11.5-14.5) % Plt Count (130-400) K/uL MPV (7.4-10.4) fL Immature Gran % (Auto) % Neut % (Auto) % Lymph % (Auto) % [place] % (Auto) % Eos % (Auto) % Baso % (Auto) % Neut # (Auto) (1.4-6.5) K/uL Lymph # (Auto) (1.2-3.4) K/uL [place] # (Auto) (0.11-0.59) K/uL Eos # (Auto) (0-0.5) K/uL Baso # (Auto) (0-0.2) K/uL Immature Gran # (Auto) (0.00-0.02) K/uL PT (9.0-12.0) Seconds INR (0.9-1.1) Fibrinogen 173 L (184-400) mg/dl Sodium (136-145) mmol/L Potassium (3.5-5.1) mmol/L Chloride (98-107) mmol/L Carbon Dioxide (21-32) mmol/L Anion Gap (3-11) BUN (7-18) mg/dl Creatinine (0.6-1.2) mg/dl Est Cr Clr Drug Dosing ml/min Est GFR ( Amer) ml/min Est GFR (Non-Af Amer) ml/min BUN/Creatinine Ratio (10-20) Glucose (70-99) mg/dl POC Glucose 210 H (70-99) mg/dl Lactate (0.4-2.0) mmol/L Calcium (8.5-10.1) mg/dl Magnesium (1.8-2.4) mg/dl Total Bilirubin (0.2-1) mg/dl AST (15-37) U/L ALT (12-78) U/L Alkaline Phosphatase (45-117) U/L Ammonia (11-32) umol/L Total Creatine Kinase (26-192) U/L Total Protein (6.4-8.2) gm/dl Albumin (3.4-5.0) gm/dl Globulin (2.5-4.0) gm/dl Albumin/Globulin Ratio (0.9-2) Procalcitonin 0.83 H (0-0.5) ng/ml Random Cortisol Blood Type Blood Type Recheck Antibody Screen Crossmatch 07/16/21 07/16/21 07/16/21 Range/Units 07:24 07:24 05:33 WBC (4.8-10.8) K/uL RBC (4.2-5.4) M/uL Hgb (12.0-16.0) g/dL Hct (37-47) % MCV (80-100) fL MCH (25-34) pg MCHC (32-36) g/dL RDW Std Deviation (36.4-46.3) fL RDW Coeff of Mary Kay (11.5-14.5) % Plt Count (130-400) K/uL MPV (7.4-10.4) fL Immature Gran % (Auto) % Neut % (Auto) % Lymph % (Auto) % [place] % (Auto) % Eos % (Auto) % Baso % (Auto) % Neut # (Auto) (1.4-6.5) K/uL Lymph # (Auto) (1.2-3.4) K/uL [place] # (Auto) (0.11-0.59) K/uL Eos # (Auto) (0-0.5) K/uL Baso # (Auto) (0-0.2) K/uL Immature Gran # (Auto) (0.00-0.02) K/uL PT (9.0-12.0) Seconds INR (0.9-1.1) Fibrinogen (184-400) mg/dl Sodium (136-145) mmol/L Potassium (3.5-5.1) mmol/L Chloride (98-107) mmol/L Carbon Dioxide (21-32) mmol/L Anion Gap (3-11) BUN (7-18) mg/dl Creatinine (0.6-1.2) mg/dl Est Cr Clr Drug Dosing ml/min Est GFR ( Amer) ml/min Est GFR (Non-Af Amer) ml/min BUN/Creatinine Ratio (10-20) Glucose (70-99) mg/dl POC Glucose (70-99) mg/dl Lactate (0.4-2.0) mmol/L Calcium (8.5-10.1) mg/dl Magnesium (1.8-2.4) mg/dl Total Bilirubin (0.2-1) mg/dl AST (15-37) U/L ALT (12-78) U/L Alkaline Phosphatase (45-117) U/L Ammonia 27.0 (11-32) umol/L Total Creatine Kinase 22 L (26-192) U/L Total Protein (6.4-8.2) gm/dl Albumin (3.4-5.0) gm/dl Globulin (2.5-4.0) gm/dl Albumin/Globulin Ratio (0.9-2) Procalcitonin (0-0.5) ng/ml Random Cortisol Pending Blood Type Blood Type Recheck Antibody Screen Crossmatch 07/16/21 07/16/21 07/16/21 Range/Units 05:33 05:26 05:26 WBC (4.8-10.8) K/uL RBC (4.2-5.4) M/uL Hgb (12.0-16.0) g/dL Hct (37-47) % MCV (80-100) fL MCH (25-34) pg MCHC (32-36) g/dL RDW Std Deviation (36.4-46.3) fL RDW Coeff of Mary Kay (11.5-14.5) % Plt Count (130-400) K/uL MPV (7.4-10.4) fL Immature Gran % (Auto) % Neut % (Auto) % Lymph % (Auto) % [place] % (Auto) % Eos % (Auto) % Baso % (Auto) % Neut # (Auto) (1.4-6.5) K/uL Lymph # (Auto) (1.2-3.4) K/uL [place] # (Auto) (0.11-0.59) K/uL Eos # (Auto) (0-0.5) K/uL Baso # (Auto) (0-0.2) K/uL Immature Gran # (Auto) (0.00-0.02) K/uL PT 12.0 (9.0-12.0) Seconds INR 1.2 H (0.9-1.1) Fibrinogen (184-400) mg/dl Sodium 144 (136-145) mmol/L Potassium 4.8 (3.5-5.1) mmol/L Chloride 118 H (98-107) mmol/L Carbon Dioxide 18 L (21-32) mmol/L Anion Gap 8.0 (3-11) BUN 107 H (7-18) mg/dl Creatinine 2.13 H (0.6-1.2) mg/dl Est Cr Clr Drug Dosing 26.2 ml/min Est GFR ( Amer) 25.8 ml/min Est GFR (Non-Af Amer) 22.2 ml/min BUN/Creatinine Ratio 50.1 H (10-20) Glucose 189 H (70-99) mg/dl POC Glucose (70-99) mg/dl Lactate 1.9 (0.4-2.0) mmol/L Calcium 7.3 L (8.5-10.1) mg/dl Magnesium 1.6 L (1.8-2.4) mg/dl Total Bilirubin 0.5 (0.2-1) mg/dl AST 14 L (15-37) U/L ALT 23 (12-78) U/L Alkaline Phosphatase 47 (45-117) U/L Ammonia (11-32) umol/L Total Creatine Kinase (26-192) U/L Total Protein 4.5 L (6.4-8.2) gm/dl Albumin 1.7 L (3.4-5.0) gm/dl Globulin 2.8 (2.5-4.0) gm/dl Albumin/Globulin Ratio 0.6 L (0.9-2) Procalcitonin (0-0.5) ng/ml Random Cortisol Blood Type Blood Type Recheck Antibody Screen Crossmatch 07/16/21 07/16/21 07/15/21 Range/Units 05:26 05:26 20:25 WBC 28.15 H (4.8-10.8) K/uL RBC 2.89 L (4.2-5.4) M/uL Hgb 8.3 L (12.0-16.0) g/dL Hct 25.0 L (37-47) % MCV 86.5 (80-100) fL MCH 28.7 (25-34) pg MCHC 33.2 (32-36) g/dL RDW Std Deviation 48.6 H (36.4-46.3) fL RDW Coeff of Mary Kay 15.5 H (11.5-14.5) % Plt Count 169 (130-400) K/uL MPV 10.9 H (7.4-10.4) fL Immature Gran % (Auto) 1.5 % Neut % (Auto) 88.7 % Lymph % (Auto) 6.0 % [place] % (Auto) 3.4 % Eos % (Auto) 0.3 % Baso % (Auto) 0.1 % Neut # (Auto) 24.96 H (1.4-6.5) K/uL Lymph # (Auto) 1.68 (1.2-3.4) K/uL [place] # (Auto) 0.96 H (0.11-0.59) K/uL Eos # (Auto) 0.09 (0-0.5) K/uL Baso # (Auto) 0.04 (0-0.2) K/uL Immature Gran # (Auto) 0.42 H (0.00-0.02) K/uL PT (9.0-12.0) Seconds INR (0.9-1.1) Fibrinogen (184-400) mg/dl Sodium (136-145) mmol/L Potassium (3.5-5.1) mmol/L Chloride (98-107) mmol/L Carbon Dioxide (21-32) mmol/L Anion Gap (3-11) BUN (7-18) mg/dl Creatinine (0.6-1.2) mg/dl Est Cr Clr Drug Dosing ml/min Est GFR ( Amer) ml/min Est GFR (Non-Af Amer) ml/min BUN/Creatinine Ratio (10-20) Glucose (70-99) mg/dl POC Glucose 120 H (70-99) mg/dl Lactate (0.4-2.0) mmol/L Calcium (8.5-10.1) mg/dl Magnesium (1.8-2.4) mg/dl Total Bilirubin (0.2-1) mg/dl AST (15-37) U/L ALT (12-78) U/L Alkaline Phosphatase (45-117) U/L Ammonia (11-32) umol/L Total Creatine Kinase (26-192) U/L Total Protein (6.4-8.2) gm/dl Albumin (3.4-5.0) gm/dl Globulin (2.5-4.0) gm/dl Albumin/Globulin Ratio (0.9-2) Procalcitonin (0-0.5) ng/ml Random Cortisol Blood Type A Negative Blood Type Recheck Antibody Screen NEGATIVE Crossmatch See Detail 07/15/21 07/15/21 07/15/21 Range/Units 20:08 16:06 14:34 WBC (4.8-10.8) K/uL RBC (4.2-5.4) M/uL Hgb 11.0 L (12.0-16.0) g/dL Hct 32.4 L (37-47) % MCV (80-100) fL MCH (25-34) pg MCHC (32-36) g/dL RDW Std Deviation (36.4-46.3) fL RDW Coeff of Mary Kay (11.5-14.5) % Plt Count (130-400) K/uL MPV (7.4-10.4) fL Immature Gran % (Auto) % Neut % (Auto) % Lymph % (Auto) % [place] % (Auto) % Eos % (Auto) % Baso % (Auto) % Neut # (Auto) (1.4-6.5) K/uL Lymph # (Auto) (1.2-3.4) K/uL [place] # (Auto) (0.11-0.59) K/uL Eos # (Auto) (0-0.5) K/uL Baso # (Auto) (0-0.2) K/uL Immature Gran # (Auto) (0.00-0.02) K/uL PT (9.0-12.0) Seconds INR (0.9-1.1) Fibrinogen (184-400) mg/dl Sodium (136-145) mmol/L Potassium (3.5-5.1) mmol/L Chloride (98-107) mmol/L Carbon Dioxide (21-32) mmol/L Anion Gap (3-11) BUN (7-18) mg/dl Creatinine (0.6-1.2) mg/dl Est Cr Clr Drug Dosing ml/min Est GFR ( Amer) ml/min Est GFR (Non-Af Amer) ml/min BUN/Creatinine Ratio (10-20) Glucose (70-99) mg/dl POC Glucose 174 H (70-99) mg/dl Lactate (0.4-2.0) mmol/L Calcium (8.5-10.1) mg/dl Magnesium (1.8-2.4) mg/dl Total Bilirubin (0.2-1) mg/dl AST (15-37) U/L ALT (12-78) U/L Alkaline Phosphatase (45-117) U/L Ammonia (11-32) umol/L Total Creatine Kinase (26-192) U/L Total Protein (6.4-8.2) gm/dl Albumin (3.4-5.0) gm/dl Globulin (2.5-4.0) gm/dl Albumin/Globulin Ratio (0.9-2) Procalcitonin (0-0.5) ng/ml Random Cortisol Blood Type Blood Type Recheck A Negative Antibody Screen Crossmatch 07/15/21 07/15/21 Range/Units 14:34 11:22 WBC (4.8-10.8) K/uL RBC (4.2-5.4) M/uL Hgb 11.7 L (12.0-16.0) g/dL Hct 35.0 L (37-47) % MCV (80-100) fL MCH (25-34) pg MCHC (32-36) g/dL RDW Std Deviation (36.4-46.3) fL RDW Coeff of Mary Kay (11.5-14.5) % Plt Count (130-400) K/uL MPV (7.4-10.4) fL Immature Gran % (Auto) % Neut % (Auto) % Lymph % (Auto) % [place] % (Auto) % Eos % (Auto) % Baso % (Auto) % Neut # (Auto) (1.4-6.5) K/uL Lymph # (Auto) (1.2-3.4) K/uL [place] # (Auto) (0.11-0.59) K/uL Eos # (Auto) (0-0.5) K/uL Baso # (Auto) (0-0.2) K/uL Immature Gran # (Auto) (0.00-0.02) K/uL PT (9.0-12.0) Seconds INR (0.9-1.1) Fibrinogen (184-400) mg/dl Sodium (136-145) mmol/L Potassium (3.5-5.1) mmol/L Chloride (98-107) mmol/L Carbon Dioxide (21-32) mmol/L Anion Gap (3-11) BUN (7-18) mg/dl Creatinine (0.6-1.2) mg/dl Est Cr Clr Drug Dosing ml/min Est GFR ( Amer) ml/min Est GFR (Non-Af Amer) ml/min BUN/Creatinine Ratio (10-20) Glucose (70-99) mg/dl POC Glucose 130 H (70-99) mg/dl Lactate (0.4-2.0) mmol/L Calcium (8.5-10.1) mg/dl Magnesium (1.8-2.4) mg/dl Total Bilirubin (0.2-1) mg/dl AST (15-37) U/L ALT (12-78) U/L Alkaline Phosphatase (45-117) U/L Ammonia (11-32) umol/L Total Creatine Kinase (26-192) U/L Total Protein (6.4-8.2) gm/dl Albumin (3.4-5.0) gm/dl Globulin (2.5-4.0) gm/dl Albumin/Globulin Ratio (0.9-2) Procalcitonin (0-0.5) ng/ml Random Cortisol Blood Type Blood Type Recheck Antibody Screen Crossmatch
[2021-07-16] MEDS ORDERED: VASOPRESSIN 20 UNITS in 0.9 % SODIUM CHLORIDE 100 ML IV SCH ×2 (09:45→11:30)
[2021-07-16 10:42] LABS: Hematocrit (blood only) 33.5 % (37-47)
[2021-07-16] MEDS: DEXMEDETOMIDINE HCL 200 MCG in SODIUM CHLORIDE 0.9% 48 ML IV SCH ×4 (10:45→21:39)
--- NOTE | 2021-07-16 10:45 | Critical Care Consultation ---
Date of Consultation July 16, 2021 Assessment & Plan (1) Hemorrhagic shock: Reason critically ill: 75 y/o female transferred to ICU 07/16/2021 in hemorrhagic shock secondary to likely GI bleed requiring pressor support and close hemodynamic monitoring NEURO: CVA, Subacute right occipital lobe infarcts - Most recent head CT 07/13/21: Unchanged size of the subacute right occipital lobe infarct. No acute intracranial hemorrhage or midline shift. - In light of current GI bleed/hemorrhagic shock, holding ASA and Plavix CARDIAC/VASCULAR: Hemorrhagic shock, secondary to likely GI bleed - Volume resuscitation with 4 units PRBCs, 2 units FFP, 1 unit platelets, and 1 unit cryoprecipitate - Also received 1g transexamic acid - Will continue to trend H&H - On pressor support with levophed and vasopressin; Goal MAP > 65 mmHg Hx of Afib w/ RVR during this hospitalization; holding metoprolol at this time. RESPIRATORY: Patient is currently DNI status. Currently requiring supplemental O2 via oxymask at 5L to maintain sats in low 90s GI/NUTRITION: Melena - GI on board. Planning for EGD today if patient stabilizes. IV PPI gtt. Maintain NPO status RENAL/LYTES: Continue ICU electrolyte replacement protocol MOHINI secondary to UTI, stone, and shock - Continue to monitor GENITOURINARY: Right UPJ stone, s/p cystoscopy, right retrograde pyelogram, right ureteral stent placement with Dr. Hector on 07/08/21 due to 6 mm obstructing stone within the right ureteropelvic junction resulting in mild right hydronephrosis. Continue to monitor strict Is/Os. ENDO: History of DM -- ICU hyperglycemic protocol - Most recent A1c 7.7% on 07/07/21 HEME: See above re: hemorrhagic shock Continue close hemodynamic monitoring; blood transfusions as indicated ID: Leukcytosis, WBC 28.15 today E. coli bacteremia -- repeat blood cx negative UTI -- E. coli Agree with continuation of ceftriaxone Lines/IV Access: Right central line, 20g US guided in left arm, PIV right arm DVT Prophylaxis: holding chemical prophylaxis in setting of current bleed GI Prophylaxis: IV PPI gtt as noted above Goals of care discussion with patient's sister over the phone. She has been in touch with patient's daughter. At this point, will keep patient DNR/DNI but they will come in to visit patient. (2) Severe sepsis: (3) GI bleed: (4) Anemia: (5) Bacteremia: (6) Acute UTI: (7) Hydronephrosis with obstructing calculus: (8) New onset a-fib: (9) Thrombocytopenia: (10) Diabetes: Supervising Physician Co-Signing Physician Notes Patient was seen and examined with the resident physician. Agree with assessment and plan aside for any additions/exceptions noted: Patient had a lengthy hospitalization involving numerous complications including cerebrovascular accident, embolic strokes, sepsis secondary to an E. coli UTI and bacteremia, atrial fibrillation with rapid ventricular response and acute kidney injury. Last night she had a significant GI bleed while on aspirin and Plavix. Massive transfusion protocol was initiated and the patient received several units of PRBC, tranexamic acid, platelets, cryoprecipitate and crystalloids. IV Protonix infusion was initiated. She was followed by gastroenterology. She required significant vasopressor support with Levophed and vasopressin. She apparently has a history of medical noncompliance and d iscussion by the care aide overnight with the patient's family indicated that the patient would like to be a DNR/DNI in the event of a cardiac arrest or respiratory failure. Patient had ongoing severe shock which is presumably hemorrhagic in nature due to the large amounts of GI bleeding noted. A central line was placed. I attempted placement of a right femoral arterial line, but was unsuccessful due to the patient's underlying anatomy. Hemoglobin dropped from baseline of 12-8.3. Posttransfusion her hemoglobin improved to 11.0. She continued to have a decompensation in her respiratory status and required high amounts of oxygen via oxygen mask. She does have a history of moderate aortic stenosis and moderate mitral stenosis. Multiple discussions were had with the patient's daughter and sister and they emphasized that the patient would not like an aggressive approach such intubation/mechanical ventilation or CPR. Due to the patient's worsening hemodynamics and the grim prognosis, the patient's family elected to pursue a comfort measures route to her care. The patient's family members had a manager house come to the bedside. After the patient's family said their goodbyes they requested that comfort measures be initiated. Comfort measures order set was started. CRITICAL CARE TIME - I have personally spent 73 minutes of critical care time in the direct management of this patient. This is a life/limb threatening event. This includes time spent evaluating patient, direct bedside care, chart review, placing orders, interpretation of diagnostic studies, discussion with consultants, patient, and family members, as well as other required patient management activities. This time is exclusive of all separately billable procedures, and teaching time and separate from and in addition to any other critical care service time. History of Present Illness Attending Physician: Carlos Baumann MD History of Present Illness Mercedes Gilbert is a 75 yo female with PMHx of HTN and hyperlipidemia initially admitted to [facility] on 07/08/21. Admitted for sepsis secondary to complicated UTI/obstructive uropathy now s/p cystoscopy, right retrograde pyelogram, right ureteral stent placement as well as subacute CVA. At present time, history is limited due to patient's recent CVA and clinical condition; all history obtained from record review as follows. Mercedes developed black liquid stool that was FOBT + approximately 3-4 days ago. Overnight last night, patient had more profuse stool output/bleeding with red clots. She also developed hypotension with SBP in 60s-80s. Hgb decreased from 11 to 8.3. She was transferred to ICU for further management. Allergies Allergy/AdvReac Type Severity Reaction Status Date / Time ampicillin Allergy Unknown . Verified 07/07/21 21:43 erythromycin base Allergy Unknown . Verified 07/07/21 21:43 tetracycline Allergy Unknown . Verified 07/07/21 21:43 Home Medications Medication Instructions Recorded Confirmed Type atorvastatin 20 mg tablet (Lipitor) 20 mg PO DAILY 07/07/21 07/07/21 History chlorpheniramine-acetaminophen 2 1 tab PO Q6H PRN 07/07/21 07/07/21 History mg-325 mg tablet lisinopril 10 mg tablet (Zestril) 10 mg PO DAILY 07/07/21 07/07/21 History oxybutynin chloride 5 mg 5 mg PO DAILY 07/07/21 07/07/21 History tablet,extended release 24 hr (Ditropan XL) Aspir-81 81 mg PO DAILY 07/08/21 07/08/21 History Patient History Medical History (Updated 07/16/21 @ 10:44 by Josie Hussein DO) MOHINI (acute kidney injury) Aortic stenosis CHF (congestive heart failure) Dyslipidemia GI bleed Hemorrhagic shock Hydronephrosis with obstructing calculus Hyponatremia Morbid obesity Smoker Stress incontinence Thrombocytopenia Surgical History H/O hysterectomy with oophorectomy History of appendectomy Social History Smoking Status: Current every day smoker Second Hand Exposure: No; Do You Dip or Chew Tobacco: No; Tobacco Cessation Education Requested by Patient: No Hx Alcohol Use: No Hx Substance Use: No Communication Ability: Unable Quantitative Consultant Required: No Beliefs That Will Affect Care: None marital status: Current Living Situation: Alone Other Information That Helps Us Care for You: No Feels Safe at Home: Yes Safety Concerns: Feels Safe At This Time Assistive Devices: Glasses Review of Systems Review of Systems: Unobtainable due to cognitive status Physical Exam Constitutional: + morbidly obese, + altered mental status and + lethargic Cardiovascular: Rate/Rhythm: regular rhythm and + tachycardic Gastrointestinal (Abdomen): Inspection/Auscultation: abdomen normal to inspection Percussion/Palpation: abdomen nontender Neurologic: Opens eyes on commands. Does not follow instructions. Genitourinary: Gomez catheter in place Results & Data Results & Data ([facility]) Vital Signs (Past 12 Hours) Vital Signs Temp Pulse Pulse Resp BP BP BP 07/16/21 09:45 36.3 C L 105 H 21 07/16/21 09:33 36.4 C L 106 H 20 80/48 L 07/16/21 09:27 36.4 C L 107 H 80/48 L 07/16/21 08:32 88 94/57 L 07/16/21 08:10 36.4 C L 97 H 19 77/61 L 07/16/21 08:09 35.9 C L 07/16/21 08:08 36.4 C L 93 H 22 77/61 L 07/16/21 08:06 35.9 C L 91 H 30 H 87/30 L 07/16/21 07:33 35.5 C L 95 H 20 68/45 L 07/16/21 07:31 99 H 23 68/45 L 07/16/21 06:15 82/54 L 07/16/21 05:13 64/38 L 07/16/21 05:08 76/48 L 07/16/21 04:30 74/50 L 07/16/21 03:53 36.9 C 96 H 24 72/47 L 07/16/21 03:52 97 H 22 67/45 L 07/15/21 22:56 36.7 C 88 18 93/61 L Pulse Ox 07/16/21 09:45 96 07/16/21 09:33 95 07/16/21 09:27 96 07/16/21 08:32 98 07/16/21 08:10 98 07/16/21 08:09 07/16/21 08:08 91 07/16/21 08:06 97 07/16/21 07:33 100 07/16/21 07:31 07/16/21 06:15 07/16/21 05:13 07/16/21 05:08 07/16/21 04:30 07/16/21 03:53 95 07/16/21 03:52 95 07/15/21 22:56 93 Laboratory Results 07/16/21 07/16/21 07/16/21 Range/Units 10:35 08:37 07:24 WBC (4.8-10.8) K/uL RBC (4.2-5.4) M/uL Hgb 11.0 L (12.0-16.0) g/dL Hct 33.5 L (37-47) % MCV (80-100) fL MCH (25-34) pg MCHC (32-36) g/dL RDW Std Deviation (36.4-46.3) fL RDW Coeff of Mary Kay (11.5-14.5) % Plt Count (130-400) K/uL MPV (7.4-10.4) fL Immature Gran % (Auto) % Neut % (Auto) % Lymph % (Auto) % [place] % (Auto) % Eos % (Auto) % Baso % (Auto) % Neut # (Auto) (1.4-6.5) K/uL Lymph # (Auto) (1.2-3.4) K/uL [place] # (Auto) (0.11-0.59) K/uL Eos # (Auto) (0-0.5) K/uL Baso # (Auto) (0-0.2) K/uL Immature Gran # (Auto) (0.00-0.02) K/uL PT (9.0-12.0) Seconds INR (0.9-1.1) Fibrinogen 173 L (184-400) mg/dl Sodium (136-145) mmol/L Potassium (3.5-5.1) mmol/L Chloride (98-107) mmol/L Carbon Dioxide (21-32) mmol/L Anion Gap (3-11) BUN (7-18) mg/dl Creatinine (0.6-1.2) mg/dl Est Cr Clr Drug Dosing ml/min Est GFR ( Amer) ml/min Est GFR (Non-Af Amer) ml/min BUN/Creatinine Ratio (10-20) Glucose (70-99) mg/dl POC Glucose 210 H (70-99) mg/dl Lactate (0.4-2.0) mmol/L Calcium (8.5-10.1) mg/dl Magnesium (1.8-2.4) mg/dl Total Bilirubin (0.2-1) mg/dl AST (15-37) U/L ALT (12-78) U/L Alkaline Phosphatase (45-117) U/L Ammonia (11-32) umol/L Total Creatine Kinase (26-192) U/L Total Protein (6.4-8.2) gm/dl Albumin (3.4-5.0) gm/dl Globulin (2.5-4.0) gm/dl Albumin/Globulin Ratio (0.9-2) Procalcitonin (0-0.5) ng/ml Random Cortisol mcg/dl Blood Type Blood Type Recheck Antibody Screen Crossmatch 07/16/21 07/16/21 07/16/21 Range/Units 07:24 07:24 07:24 WBC (4.8-10.8) K/uL RBC (4.2-5.4) M/uL Hgb (12.0-16.0) g/dL Hct (37-47) % MCV (80-100) fL MCH (25-34) pg MCHC (32-36) g/dL RDW Std Deviation (36.4-46.3) fL RDW Coeff of Mary Kay (11.5-14.5) % Plt Count (130-400) K/uL MPV (7.4-10.4) fL Immature Gran % (Auto) % Neut % (Auto) % Lymph % (Auto) % [place] % (Auto) % Eos % (Auto) % Baso % (Auto) % Neut # (Auto) (1.4-6.5) K/uL Lymph # (Auto) (1.2-3.4) K/uL [place] # (Auto) (0.11-0.59) K/uL Eos # (Auto) (0-0.5) K/uL Baso # (Auto) (0-0.2) K/uL Immature Gran # (Auto) (0.00-0.02) K/uL PT (9.0-12.0) Seconds INR (0.9-1.1) Fibrinogen (184-400) mg/dl Sodium (136-145) mmol/L Potassium (3.5-5.1) mmol/L Chloride (98-107) mmol/L Carbon Dioxide (21-32) mmol/L Anion Gap (3-11) BUN (7-18) mg/dl Creatinine (0.6-1.2) mg/dl Est Cr Clr Drug Dosing ml/min Est GFR ( Amer) ml/min Est GFR (Non-Af Amer) ml/min BUN/Creatinine Ratio (10-20) Glucose (70-99) mg/dl POC Glucose (70-99) mg/dl Lactate (0.4-2.0) mmol/L Calcium (8.5-10.1) mg/dl Magnesium (1.8-2.4) mg/dl Total Bilirubin (0.2-1) mg/dl AST (15-37) U/L ALT (12-78) U/L Alkaline Phosphatase (45-117) U/L Ammonia (11-32) umol/L Total Creatine Kinase 22 L (26-192) U/L Total Protein (6.4-8.2) gm/dl Albumin (3.4-5.0) gm/dl Globulin (2.5-4.0) gm/dl Albumin/Globulin Ratio (0.9-2) Procalcitonin 0.83 H (0-0.5) ng/ml Random Cortisol 29.01 mcg/dl Blood Type Blood Type Recheck Antibody Screen Crossmatch 07/16/21 07/16/21 07/16/21 Range/Units 05:33 05:33 05:26 WBC (4.8-10.8) K/uL RBC (4.2-5.4) M/uL Hgb (12.0-16.0) g/dL Hct (37-47) % MCV (80-100) fL MCH (25-34) pg MCHC (32-36) g/dL RDW Std Deviation (36.4-46.3) fL RDW Coeff of Mary Kay (11.5-14.5) % Plt Count (130-400) K/uL MPV (7.4-10.4) fL Immature Gran % (Auto) % Neut % (Auto) % Lymph % (Auto) % [place] % (Auto) % Eos % (Auto) % Baso % (Auto) % Neut # (Auto) (1.4-6.5) K/uL Lymph # (Auto) (1.2-3.4) K/uL [place] # (Auto) (0.11-0.59) K/uL Eos # (Auto) (0-0.5) K/uL Baso # (Auto) (0-0.2) K/uL Immature Gran # (Auto) (0.00-0.02) K/uL PT (9.0-12.0) Seconds INR (0.9-1.1) Fibrinogen (184-400) mg/dl Sodium 144 (136-145) mmol/L Potassium 4.8 (3.5-5.1) mmol/L Chloride 118 H (98-107) mmol/L Carbon Dioxide 18 L (21-32) mmol/L Anion Gap 8.0 (3-11) BUN 107 H (7-18) mg/dl Creatinine 2.13 H (0.6-1.2) mg/dl Est Cr Clr Drug Dosing 26.2 ml/min Est GFR ( Amer) 25.8 ml/min Est GFR (Non-Af Amer) 22.2 ml/min BUN/Creatinine Ratio 50.1 H (10-20) Glucose 189 H (70-99) mg/dl POC Glucose (70-99) mg/dl Lactate 1.9 (0.4-2.0) mmol/L Calcium 7.3 L (8.5-10.1) mg/dl Magnesium 1.6 L (1.8-2.4) mg/dl Total Bilirubin 0.5 (0.2-1) mg/dl AST 14 L (15-37) U/L ALT 23 (12-78) U/L Alkaline Phosphatase 47 (45-117) U/L Ammonia 27.0 (11-32) umol/L Total Creatine Kinase (26-192) U/L Total Protein 4.5 L (6.4-8.2) gm/dl Albumin 1.7 L (3.4-5.0) gm/dl Globulin 2.8 (2.5-4.0) gm/dl Albumin/Globulin Ratio 0.6 L (0.9-2) Procalcitonin (0-0.5) ng/ml Random Cortisol mcg/dl Blood Type Blood Type Recheck Antibody Screen Crossmatch 07/16/21 07/16/21 07/16/21 Range/Units 05:26 05:26 05:26 WBC 28.15 H (4.8-10.8) K/uL RBC 2.89 L (4.2-5.4) M/uL Hgb 8.3 L (12.0-16.0) g/dL Hct 25.0 L (37-47) % MCV 86.5 (80-100) fL MCH 28.7 (25-34) pg MCHC 33.2 (32-36) g/dL RDW Std Deviation 48.6 H (36.4-46.3) fL RDW Coeff of Mary Kay 15.5 H (11.5-14.5) % Plt Count 169 (130-400) K/uL MPV 10.9 H (7.4-10.4) fL Immature Gran % (Auto) 1.5 % Neut % (Auto) 88.7 % Lymph % (Auto) 6.0 % [place] % (Auto) 3.4 % Eos % (Auto) 0.3 % Baso % (Auto) 0.1 % Neut # (Auto) 24.96 H (1.4-6.5) K/uL Lymph # (Auto) 1.68 (1.2-3.4) K/uL [place] # (Auto) 0.96 H (0.11-0.59) K/uL Eos # (Auto) 0.09 (0-0.5) K/uL Baso # (Auto) 0.04 (0-0.2) K/uL Immature Gran # (Auto) 0.42 H (0.00-0.02) K/uL PT 12.0 (9.0-12.0) Seconds INR 1.2 H (0.9-1.1) Fibrinogen (184-400) mg/dl Sodium (136-145) mmol/L Potassium (3.5-5.1) mmol/L Chloride (98-107) mmol/L Carbon Dioxide (21-32) mmol/L Anion Gap (3-11) BUN (7-18) mg/dl Creatinine (0.6-1.2) mg/dl Est Cr Clr Drug Dosing ml/min Est GFR ( Amer) ml/min Est GFR (Non-Af Amer) ml/min BUN/Creatinine Ratio (10-20) Glucose (70-99) mg/dl POC Glucose (70-99) mg/dl Lactate (0.4-2.0) mmol/L Calcium (8.5-10.1) mg/dl Magnesium (1.8-2.4) mg/dl Total Bilirubin (0.2-1) mg/dl AST (15-37) U/L ALT (12-78) U/L Alkaline Phosphatase (45-117) U/L Ammonia (11-32) umol/L Total Creatine Kinase (26-192) U/L Total Protein (6.4-8.2) gm/dl Albumin (3.4-5.0) gm/dl Globulin (2.5-4.0) gm/dl Albumin/Globulin Ratio (0.9-2) Procalcitonin (0-0.5) ng/ml Random Cortisol mcg/dl Blood Type A Negative Blood Type Recheck Antibody Screen NEGATIVE Crossmatch See Detail 07/15/21 07/15/21 07/15/21 Range/Units 20:25 20:08 16:06 WBC (4.8-10.8) K/uL RBC (4.2-5.4) M/uL Hgb 11.0 L (12.0-16.0) g/dL Hct 32.4 L (37-47) % MCV (80-100) fL MCH (25-34) pg MCHC (32-36) g/dL RDW Std Deviation (36.4-46.3) fL RDW Coeff of Mary Kay (11.5-14.5) % Plt Count (130-400) K/uL MPV (7.4-10.4) fL Immature Gran % (Auto) % Neut % (Auto) % Lymph % (Auto) % [place] % (Auto) % Eos % (Auto) % Baso % (Auto) % Neut # (Auto) (1.4-6.5) K/uL Lymph # (Auto) (1.2-3.4) K/uL [place] # (Auto) (0.11-0.59) K/uL Eos # (Auto) (0-0.5) K/uL Baso # (Auto) (0-0.2) K/uL Immature Gran # (Auto) (0.00-0.02) K/uL PT (9.0-12.0) Seconds INR (0.9-1.1) Fibrinogen (184-400) mg/dl Sodium (136-145) mmol/L Potassium (3.5-5.1) mmol/L Chloride (98-107) mmol/L Carbon Dioxide (21-32) mmol/L Anion Gap (3-11) BUN (7-18) mg/dl Creatinine (0.6-1.2) mg/dl Est Cr Clr Drug Dosing ml/min Est GFR ( Amer) ml/min Est GFR (Non-Af Amer) ml/min BUN/Creatinine Ratio (10-20) Glucose (70-99) mg/dl POC Glucose 120 H 174 H (70-99) mg/dl Lactate (0.4-2.0) mmol/L Calcium (8.5-10.1) mg/dl Magnesium (1.8-2.4) mg/dl Total Bilirubin (0.2-1) mg/dl AST (15-37) U/L ALT (12-78) U/L Alkaline Phosphatase (45-117) U/L Ammonia (11-32) umol/L Total Creatine Kinase (26-192) U/L Total Protein (6.4-8.2) gm/dl Albumin (3.4-5.0) gm/dl Globulin (2.5-4.0) gm/dl Albumin/Globulin Ratio (0.9-2) Procalcitonin (0-0.5) ng/ml Random Cortisol mcg/dl Blood Type Blood Type Recheck Antibody Screen Crossmatch 07/15/21 07/15/21 07/15/21 Range/Units 14:34 14:34 11:22 WBC (4.8-10.8) K/uL RBC (4.2-5.4) M/uL Hgb 11.7 L (12.0-16.0) g/dL Hct 35.0 L (37-47) % MCV (80-100) fL MCH (25-34) pg MCHC (32-36) g/dL RDW Std Deviation (36.4-46.3) fL RDW Coeff of Mary Kay (11.5-14.5) % Plt Count (130-400) K/uL MPV (7.4-10.4) fL Immature Gran % (Auto) % Neut % (Auto) % Lymph % (Auto) % [place] % (Auto) % Eos % (Auto) % Baso % (Auto) % Neut # (Auto) (1.4-6.5) K/uL Lymph # (Auto) (1.2-3.4) K/uL [place] # (Auto) (0.11-0.59) K/uL Eos # (Auto) (0-0.5) K/uL Baso # (Auto) (0-0.2) K/uL Immature Gran # (Auto) (0.00-0.02) K/uL PT (9.0-12.0) Seconds INR (0.9-1.1) Fibrinogen (184-400) mg/dl Sodium (136-145) mmol/L Potassium (3.5-5.1) mmol/L Chloride (98-107) mmol/L Carbon Dioxide (21-32) mmol/L Anion Gap (3-11) BUN (7-18) mg/dl Creatinine (0.6-1.2) mg/dl Est Cr Clr Drug Dosing ml/min Est GFR ( Amer) ml/min Est GFR (Non-Af Amer) ml/min BUN/Creatinine Ratio (10-20) Glucose (70-99) mg/dl POC Glucose 130 H (70-99) mg/dl Lactate (0.4-2.0) mmol/L Calcium (8.5-10.1) mg/dl Magnesium (1.8-2.4) mg/dl Total Bilirubin (0.2-1) mg/dl AST (15-37) U/L ALT (12-78) U/L Alkaline Phosphatase (45-117) U/L Ammonia (11-32) umol/L Total Creatine Kinase (26-192) U/L Total Protein (6.4-8.2) gm/dl Albumin (3.4-5.0) gm/dl Globulin (2.5-4.0) gm/dl Albumin/Globulin Ratio (0.9-2) Procalcitonin (0-0.5) ng/ml Random Cortisol mcg/dl Blood Type Blood Type Recheck A Negative Antibody Screen Crossmatch Diagnostic Findings XR chest 1V portable 07/16/2021 CLINICAL HISTORY: s/p central line placement COMPARISON STUDY: Chest radiograph July 08, 2021. FINDINGS: There is no pneumothorax following placement of a right-sided central line. Tip projects over the expected location of the distal SVC. Pulmonary edema has improved since prior exam in addition. There is cardiomegaly. Old bilateral rib fractures are incidentally noted. Right basilar opacity has improved. IMPRESSION: 1. No pneumothorax following placement of a right sided central line. Tip projects over the expected location of the distal SVC. 2. Interval resolution of pulmonary edema and improvement in right basilar opacity. Resident Activity Tracking Resident Involvement: Resident Care Provided Care Provided: Adult [facility] Medicine
[2021-07-16] MEDS: ATORVASTATIN 40 MG TAB PO SCH (10:47)
[2021-07-16] MEDS: cefTRIAXone SODIUM 2,000 MG in DEXTROSE 5% 50 ML IV SCH (11:48)
[2021-07-16] MEDS ORDERED: MAX Conc 128mcg/mL; 32mg in 250mL IV SCH (13:00)
[2021-07-16] MEDS ORDERED: MoRPHine SULFATE 2 MG/ML CARP IV STA ×2 (13:39→14:17)
[2021-07-16] MEDS ORDERED: MoRPHine SULFATE 2 MG/ML CARP ONE (13:40)
--- NOTE | 2021-07-16 16:27 | Hospitalist Progress Note ---
Date of Service July 16, 2021 Assessment & Plan (1) Bacteremia: (2) Sepsis: Plan: per Dr. Lambert's noted with addendum: Sepsis, E coli UTI E coli bacteremia Right UPJ stone, s/p Ureteral Stent Placement CT abd/pelvis showed a 6 mm obstructing stone within the right ureteropelvic junction resulting in mild right hydronephrosis. s/p cystoscopy, right retrograde pyelogram, right ureteral stent placement with Dr. Hector. repeat Blood culture: negative IV Cefepime x 2 days, Rocephin day 02/28 Occipital Subacute infarcts, Likely Embolic MRI showed 2.6 cm focus of restricted diffusion identified in the right occipital lobe consistent with a subacute infarct. Additional subcentimeter foci of restricted diffusion in the right frontal cortex, the right cerebellar hemisphere, and the left parietal white matter are also consistent with acute to subacute infarcts. The distribution suggests an embolic event. carotid u/s showed no sonographic evidence of hemodynamically significant stenosis in the right or left carotid arterial system. Reversed flow in the right vertebral artery in this patient with subclavian steal syndrome. MRA brain showed Unremarkable MR angiogram of the brain. Neuro on board recommended aspirin 81mg daily alone due to pt low platelet count Pt said that she was only taking aspirin once a while Echo no LV wall motion abnormalities with EF 55-60% PT/OT eval Fall precaution Will need to arrange for outpatient ZIo patch Mental status seems to worsening, and repeat CT head yesterday showed no bleeding EEG showed no electrographic seizures or epileptiform activity is recorded. Repeat CT head showed no acute intracranial hemorrhage or midline shift. Mental status improved significantly (patient awake, talking and follow commands) Case discussed with neurology recommended to change aspirin to Plavix once bleeding resolved Clinically improved 07/16 hold ASA, Plavix in light of GI bleed GI Bleed received 5 units pRBC Protonix drip EGD cancelled will be transitioning to comfort measures this evening AFIB with RVR Mostly due to acute illness Converted to NSR after Lopressor IV Cardiology on board and started on Metoprolol 25mg BID Will hold on to start any heparin drip due to recent CVA due to risk of intracranial hemorrhage and recent urology procedure 07/16 (+) A fib , HR controlled Hypernatremia Sodium decreased to 148 --> 144 d/c IV fluids Continue monitor BMP MOHINI Creatinine on admission 5.8 Possible related to renal calculi/hydronephrosis and sepsis Received IVF Nephrology on board Creatinine 2.13 Oxybutynin discontinued due to dry mouth Continue monitor BP Hematuria Possible related to trauma due to pt confusion and recent urology procedure no hematuria Abdominal aortic aneurysm. CT showed 4.2 cm infrarenal abdominal aortic aneurysm. Left Adrenal gland nodule CT showed a 2.7 cm indeterminate left adrenal gland nodule Thrombocytopenia resolved Diabetes Most recent hab1c 7.7 Continue lantus and insulin sliding scale during hospital course DVT prophylaxis. SCDs Re: Thrombocytopenia Will consider to add subq heparin once platelet improves and hemoglobin stable DNR Disposition pending Admission and Anticipated Discharge Date Admission Date: July 08, 2021 Subjective ff up for GI bleed, anemia, etc events overnight and this morning noted patient on max pressors EGD cancelled ICU service discussed with family, will be transitioning to comfort measures once user experience analyst arrives patient seen with family at bedside- sister and daughter patient not responsive not in distress no active signs of GI bleed Review of Systems Review of Systems: all noted and negative except for above Physical Exam 2 Physical Exam: General- breathing with no distress, effort Eyes- anicteric Neck- no JVD Lungs- clear breath sounds bilaterally Heart- normal rate, regular rhythm; no murmurs Abdomen- normal bowel sounds, nondistended, soft, nontender Extremities- no pretibial edema, no calf tenderness Neuro- not responsive Skin- warm & dry Results & Data Results & Data ([facility]) Vital Signs (Past 12 Hours) Vital Signs Temp Pulse Resp BP BP Pulse Ox 07/16/21 11:08 36.5 C 99 H 14 96/57 L 97 07/16/21 09:45 36.3 C L 105 H 21 96 07/16/21 09:33 36.4 C L 106 H 20 80/48 L 95 07/16/21 09:27 36.4 C L 107 H 80/48 L 96 07/16/21 08:32 88 94/57 L 98 07/16/21 08:10 36.4 C L 97 H 19 77/61 L 98 07/16/21 08:09 35.9 C L 07/16/21 08:08 36.4 C L 93 H 22 77/61 L 91 07/16/21 08:06 35.9 C L 91 H 30 H 87/30 L 97 07/16/21 07:33 35.5 C L 95 H 20 68/45 L 100 07/16/21 07:31 99 H 23 68/45 L 07/16/21 06:15 82/54 L 07/16/21 05:13 64/38 L 07/16/21 05:08 76/48 L 07/16/21 04:30 74/50 L all noted and reviewed including below
[2021-07-16 16:53] LABS: Hematocrit (blood only) 37.6 % (37-47); Hemoglobin 12.5 g/dL (12.0-16.0)
[2021-07-16] MEDS ORDERED: MoRPHine SULFATE 4 MG/ML 1 ML CARP\\VIAL ONE (17:38)
[2021-07-16] MEDS ORDERED: MoRPHine SULFATE 4 MG/ML 1 ML CARP\\VIAL IV STA (17:40)
[2021-07-16] MEDS ORDERED: LORazepam 0.5 MG/1 ML VIAL IV PRN (19:02)
[2021-07-16] MEDS ORDERED: ONDANSETRON INJ 2 MG/ML 2 ML VIAL IV PRN (19:02)
[2021-07-16] MEDS ORDERED: ONDANSETRON 4 MG OD TAB SL PRN (19:02)
[2021-07-16] MEDS ORDERED: LORazepam 0.5 MG TAB PO PRN (19:02)
[2021-07-16] MEDS ORDERED: MoRPHine SULF/NSS 250 MG/250 ML BTL IV SCH (19:15)
--- NOTE | 2021-07-16 20:06 | Billing Data ---
Date of Service July 16, 2021 Coding Level of Care Code Critical Care 1st 30-74 mins Time Spent (min) 73
--- NOTE | 2021-07-17 00:21 | Death Pronouncement Note ---
Date of Service July 17, 2021 Pronouncement Note Admission Date Admission Date: July 08, 2021 Contributing Factors (1) Hemorrhagic shock: (2) Severe sepsis: (3) GI bleed: (4) Anemia: (5) Bacteremia: (6) Acute UTI: (7) Hydronephrosis with obstructing calculus: (8) New onset a-fib: (9) Thrombocytopenia: (10) Diabetes: Summary Additional details: PRONOUNCEMENT NOTE - Date: 07/17/2021 Time: 00 13 I was contacted by nursing staff regarding the patients declining status and concerns for imminent demise. In short, patient had undergone treatment and was admitted to the hospital for sepsis, UTI, and obstructive calculi and underwent cystoscope with ureteral stent. Earlier this morning patient developed hypotension with acute GI bleed and was admitted to the ICU with hypovolemic shock. She was made comfort measures earlier this evening. Assessment: I presented to the patients room for evaluation. Upon assessment, the patient was found to be in a terminal state. Pupils were fixed and dilated without response. No palpable pulses appreciated. No spontaneous breaths noted. Heart sounds were absent. No response to painful stimuli. Time of : as pronounced by myself. Family present at bedside. Appropriate response to grief appreciated. Condolences provided. Questions were addressed and emotional support was provided. Patients primary service was contacted and made aware of patient demise. Pronouncement section of the Certificate was filled out and signed by myself. Cause of : Primary -hypovolemic shock Secondary -acute GI bleed Contributing Causes of -sepsis, UTI, ureteral calculi, anemia Please feel free to contact me with any questions regarding the above-mentioned course. Additional Data Attending physician: Carlos Baumann MD Coding Level of Care Code None Diagnoses Hemorrhagic shock R57.8 Severe sepsis A41.9; R65.20 GI bleed K92.2 Anemia D64.9 Bacteremia R78.81 Acute UTI N39.0 Hydronephrosis with obstructing calculus N13.2 New onset a-fib I48.91 Thrombocytopenia D69.6 Diabetes E11.9
--- NOTE | 2021-07-30 18:30 | Discharge Summary ---
Date of Service July 30, 2021 Admission HPI Per Admitting Provider History obtained from patient and records. Patient is a fair historian. Medical history significant for hypertension, hyperlipidemia, stress incontinence as per records, past tobacco abuse. Patient noted leg swelling and fluid retention in the last few weeks. Yesterday, patient noted right leg weakness more than usual. Trouble walking as per patient. Denies headache/visual symptoms. Patient denies unusual chest pain, S OB symptoms. Usual cough symptoms. Denies abdominal pain or flank pain or hematuria symptoms. No issues with peeing as per patient. Denies OTC NSAID intake. Patient brought to the ER for evaluation. Ciprofloxacin given for UTI. Medical History as above Surgical History : Eye surgeries, appendectomy, MICHAEL Family History : Bladder cancer, glaucoma Personal/Social history : Past tobacco abuse, no EtOH intake, retired from factory work Admission Exam (Per Admitting) Constitutional GENERAL: Comfortable, morbidly obese, mild hearing impairment, no respiratory distress SKIN: Normal color, warm HEENT: [place] palpebral conjunctivae, no ptosis, dry buccal mucosa, nasal cannula in place NECK : Supple, short neck, no tenderness CHEST : Decreased breath sounds, no tenderness HEART : RRR, systolic murmur ABDOMEN: Some distention, nontender EXTREMITIES : Bilateral LE swelling, no LE tenderness, thickened LE skin NEUROLOGIC : Coherent, no facial asymmetry, mild hearing impairment, MMTS BUE/BLE 4/5, gait and stance not assessed Discharge Data Consultations 07/08/21 00:41 ED Decision to Admit Stat 07/08/21 03:35 Consult Health Information Management Routine Consult Nephrology Routine Consult Neurology Routine Consult Urology Routine 07/10/21 17:10 Consult Cardiology Routine 07/12/21 23:09 Consult Gastroenterology Routine 07/16/21 19:02 Consult Palliative Care Routine 07/16/21 22:17 Consult Benefits Clerk Routine Procedures Performed Operation Date: 07/08/21 08:20 Actual Procedures p Cystoscopy, Retrograde Pyelogram, Right Stent Placement(Right) - Simon Hector MD Operation Date: 07/16/21 10:45 <No data on this case meets the specified criteria> Hospital Course (1) Bacteremia: (2) Sepsis: per Dr. Lambert's noted with addendum: Sepsis, E coli UTI E coli bacteremia Right UPJ stone, s/p Ureteral Stent Placement CT abd/pelvis showed a 6 mm obstructing stone within the right ureteropelvic junction resulting in mild right hydronephrosis. s/p cystoscopy, right retrograde pyelogram, right ureteral stent placement with Dr. Hector. repeat Blood culture: negative Given cefepime and Rocephin Occipital Subacute infarcts, Likely Embolic MRI showed 2.6 cm focus of restricted diffusion identified in the right occipital lobe consistent with a subacute infarct. Additional subcentimeter foci of restricted diffusion in the right frontal cortex, the right cerebellar hemisphere, and the left parietal white matter are also consistent with acute to subacute infarcts. The distribution suggests an embolic event. carotid u/s showed no sonographic evidence of hemodynamically significant stenosis in the right or left carotid arterial system. Reversed flow in the right vertebral artery in this patient with subclavian steal syndrome. MRA brain showed Unremarkable MR angiogram of the brain. Neuro on board recommended aspirin 81mg daily alone due to pt low platelet count Pt said that she was only taking aspirin once a while Echo no LV wall motion abnormalities with EF 55-60% PT/OT eval Fall precaution Will need to arrange for outpatient ZIo patch Mental status seems to worsening, and repeat CT head yesterday showed no bleeding EEG showed no electrographic seizures or epileptiform activity is recorded. Repeat CT head showed no acute intracranial hemorrhage or midline shift. Mental status improved significantly (patient awake, talking and follow commands) Case discussed with neurology recommended to change aspirin to Plavix once bleed ing resolved Clinically improved 07/16 held ASA, Plavix in light of GI bleed GI Bleed received 5 units pRBC Protonix drip EGD cancelled Patient's family has decided to transition to comfort measures Patient pronounced 07/17/2021 AFIB with RVR Mostly due to acute illness Converted to NSR after Lopressor IV Started on metoprolol 25 mg twice daily Heparin drip held due to GI bleed MOHINI Creatinine on admission 5.8 Possible related to renal calculi/hydronephrosis and sepsis Received [facility] Nephrology on board Creatinine 2.13 Hematuria Possible related to trauma due to pt confusion and recent urology procedure Abdominal aortic aneurysm. CT showed 4.2 cm infrarenal abdominal aortic aneurysm. Left Adrenal gland nodule CT showed a 2.7 cm indeterminate left adrenal gland nodule Thrombocytopenia resolved Diabetes Most recent hab1c 7.7 Given Lantus and insulin sliding scale
== END 2021-07-17 00:13 | disposition expired | DRG 853 ==
LOC: ED 20:23 → 1E 07-08 03:16 → SUATTDRO 07-08 03:23 → 1E 07-08 03:23 → 2S 07-13 17:43 → 1E 07-16 07:08